=== PATIENT | male | born 1970 | race Caucasian/White ===

== ENCOUNTER 2023-12-01 13:00 | Outpatient (RCR) | payer OTHER, SELFPAY ==
[2023-09-15 12:51] VITALS: BP 150/90; PULSE 110; O2SAT 96
== END 2024-05-09 07:51 | disposition home or self-care (01) ==
LOC: HO.PTWFD 13:00
PROVIDERS: Visit Provider Orthopaedic Surgery
DX: M25.552 Pain in left hip (principal)
CPT/HCPCS: 97110; 97116; 97140; 97162; 97530; 97535

== ENCOUNTER 2024-01-26 14:55 | Outpatient (AMB) | payer OTHER, SELFPAY ==
--- NOTE | 2024-01-26 15:00 | A.OFFPC_ITS ---
Vital Signs 01/26/24 15:22 01/26/24 16:19 Height 5 ft 4.5 in Weight 157 lb 2 oz BMI 26.6 BP 124/76 Blood Pressure Location Lt brachial Position Sitting Pulse 116 H 92 Pulse Source Pulse Oximeter Monitor Pulse Oximetry (%) 96 Oxygen Delivery Method Room Air Intake Visit Reasons: est care Intake Note: Patient is a new patient here to establish care for Arthritis, Chronic pain. Transferring care from Dr Garret Baker ([facility]). Medical records have not been requested and have not received. Java Web Application Developer Required: No Radiologic Technician: Present Accompanied by: Sister Allergies aspirin Allergy (Intermediate, Verified 01/26/24 15:29) Swelling Tobacco use date assessed: 01/26/24 Dental Screening Dental Screen Date: 01/26/24 Did you have a dental visit in the last 12 months?: Yes Did you have a dental problem in the last 6 months where you did not have access to dental care?: No Was dental information given to patient?: Patient has dentist HPI est care HPI Details New Patient? ?? Prior PCP:?Dr Brito Last office visit/CPE:? 8 years Acute issue(s):? Est care ?? PMHx:? Arthritis b/L Hips, SurgHx:? L Total Hip, Ingunal Hernia 1995 FHx:? Mom: HTN, HLD, DM, CAD w/ Stent. Valvular disease. Dad: CAD. SocHx: Nonsmoker, EtOH None. 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 1. Little interest or pleasure in doing things: not at all 2. Feeling down, depressed, or hopeless: not at all 3. Trouble falling or staying asleep, or sleeping too much: not at all 4. Feeling tired or having little energy: not at all 5. Poor appetite or overeating: not at all 6. Feeling bad about yourself - or that you are a failure or have let yourself or your family down: not at all 7. Trouble concentrating on things, such as reading the newspaper or watching television: not at all 8. Moving or speaking so slowly that other people could have noticed. Or the opposite - being so fidgety or restless that you have been moving around a lot more than usual: not at all 9. Thoughts that you would be better off or of hurting yourself in some way: not at all Total score: 0 Depression Screening Interpretation: Negative Depression Screening Done: Yes 92747 - PHQ-9 Billing: Yes Source: Developed by Drs. Fer Brown, Carley Jimenez, Jef Angel and colleagues, with an educational dee from [employer]. Thrive Questionnaire Date Thrive assessed: 01/26/24 I am a: Patient What is your living situation today?: I have a steady place to live Within the past 12 months, did the food you bought not last and you didn't have the money to get more?: Never true Within the past 12 months, did you worry whether your food would run out before you got money to buy more?: Never true Do you have trouble paying for medicines?: No Do you have trouble getting transportation to medical appointments?: No Do you have trouble paying your heating and electricity bill?: No Do you have trouble taking care of your child, family member or friend?: No Do you have trouble with day-to-day activities such as bathing, preparing meals, shopping, managing finances, etc.?: No Are you currently unemployed and looking for a job?: No Are you interested in more education?: No Currently or been in a relationship where the following occur: No concerns reported THRIVE Score: 0 AUDIT C Alcohol Use Questionnaire (AUDIT-C) 1. How often do you have a drink containing alcohol?: Never Total Score: 0 FATUMA-7 AMB Questionnaire FATUMA-7 Date FATUMA - 7 assessed: 01/26/24 Feeling nervous, anxious, or on edge: 0 = Not at all Not being able to stop or control worryin = Not at all Worrying too much about different things: 0 = Not at all Trouble relaxin = Not at all Being so restless that it is hard to sit still: 0 = Not at all Becoming easily annoyed or irritable: 0 = Not at all Feeling afraid as if something awful might happen: 0 = Not at all Total FATUMA-7 score (0-4 normal; 5-9 mild; 10-14 moderate; 15-21 severe): 0 Source: Developed by Drs. Fer Brown, Carley Jimenez, Jfe Angel and colleagues, with an educational dee from [employer]. FATUMA-7 Assessment Billing FATUMA-7 Assessment Tool: FATUMA-7 Assessment 41799 Review of Systems Const Denies chills, Denies fatigue, Denies fever(s), Denies headache(s) and Denies weakness Eyes Denies change in vision ENT Denies dizziness, Denies headache(s), Denies hearing loss, Denies nasal congestion, Denies sinus pain, Denies sinus pressure and Denies sore throat Card Denies chest pain, Denies lightheadedness, Denies dyspnea and Denies other (palpitations) Resp Denies cough, Denies dyspnea and Denies wheezing GI Denies abdominal pain, Denies melena, Denies hematochezia, Denies change in bowel habits, Denies dyspepsia and Denies nausea Denies hematuria and Denies dysuria Musc Denies abnormal gait, Denies myalgias, Denies arthralgias, Denies numbness and Denies tingling Skin/Breast Denies rash, Denies unusual bruising and Denies wounds Neuro Denies abnormal gait, Denies dizziness, Denies headache(s), Denies memory loss, Denies numbness, Denies Sensory deficit (Neuro), Denies tingling and Denies weakness Psych Denies anxiety, Denies depression and Denies memory loss Endo Denies cold intolerance, Denies fatigue, Denies heat intolerance, Denies polydipsia and Denies polyuria Law/Lymph Denies easy bleeding and Denies easy bruising Aller/Immun Denies wheezing Physical exam (Primary Care) Vital Signs: Last Vital Signs Pulse 116 H 01/26/24 15:22 BP 124/76 01/26/24 15:22 Pulse Ox 96 01/26/24 15:22 Oxygen Delivery Method Room Air 01/26/24 15:22 BMI result Body Mass Index 26.6 Tobacco/Smoking Status: Tobacco use Status Tobacco use date assessed 01/26/24 01/26/24 15:03 Patient Tobacco Use Status Never used Tobacco 01/26/24 15:03 e-Cigarette/Vaping Use Never Used 01/26/24 15:03 PHQ-9: PHQ-9 Score PHQ-9: Total score 0 01/26/24 15:33 Depression Screening Interpretation: Negative Thrive Assessment: Date of Thrive Assessment Date Thrive assessed 01/26/24 01/26/24 15:03 Currently or been in a relationship where the following occur: No concerns reported Const General: no acute distress, well developed, alert and awake Nutritional Appearance: well nourished Orientation/consciousness: patient oriented x3 HENMT Head: Yes normocephalic and Yes atraumatic Ears: hearing grossly normal bilaterally and TM's normal bilaterally General nose exam: Normal external nose present and Normal nares present Mouth: Normal oral and palatal mucosa present and moist mucous membranes Teeth and gingiva: dentition normal Throat: Yes posterior oropharynx normal Eyes General: appearance normal, both eyes and all related structures Pupils: Equal, round and reactive pupils present and Pupil accommodation reflex normal EOM: EOMs intact bilaterally Neck Neck: Yes normal visual inspection, Yes no lymphadenopathy and Yes trachea midline Thyroid: Thyroid normal Carotids: no bruits Lymphatic: no lymphadenopathy noted Chest Chest palpation & inspection: normal inspection of the chest Resp Effort & Inspection: normal respiratory effort Auscultation: clear to auscultation bilaterally Cardio Rate: tachycardic Rhythm: regular rhythm Heart sounds: S1 normal heart sound present, S2 normal heart sound present, no gallops, no murmurs and no rubs Bruits: no abdominal aortic bruits and no carotid bruits GI Palpation (GI): No Abdominal aortic bruit present, Soft to palpation, nontender, No hepatosplenomegaly present and No Rebound tenderness present Auscultation: normal bowel sounds General: Yes no CVA tenderness Back/Spine/Pelvis Back: no CVA tenderness Cervical Spine: cervical ROM normal and No Cervical spine tenderness Thoracic/Lumbar Spine: thoraco-lumbar ROM normal, No pain with thoraco-lumbar ROM, No thoracic spinal tenderness and No lumbar spinal tenderness Skin Lesions: no lesions Rashes: no rashes Trauma: no lacerations or abrasions Wounds: no wounds Nails: normal Neuro General: patient oriented x3 Cranial nerves: Yes Equal, round and reactive pupils present Cognition (Neuro): normal cognition Gait exam (Neuro): Normal gait present Motor exam (neuro): 5/5 motor strength present throughout Sensory Exam: No Sensory deficit (Neuro) Deep tendon reflexes (DTR's): Right patellar reflex intensity grade: 2+ and Left patellar reflex intensity grade: 2+ Extrem General: Yes normal to inspection and No edema Psych Appearance: grossly normal Affect: normal affect Attitude: cooperative Thought process: Normal thought process present Assessment and Plan Assessment & Plan (1) Arthritis: Code(s): M19.90 - Unspecified osteoarthritis, unspecified site Plan: Arthritis?of?bilateral?hips?and?s/p?total?hip?replacement?on?left. Patient?walking?with?limp?favoring?right?leg/hip?and?has?appointment?for?follow- up?with?his?orthopedic?specialist?in?[place] May?be?ready?for?right?total?hip?soon Follow-up?with?ortho?as?recommended (2) Tachycardia: Code(s): R00.0 - Tachycardia, unspecified Plan: Mild?tachycardia.??Patient?is?asymptomatic EKG: ?Normal?sinus?rhythm,?heart?rate?92, normal?axis,?no?hypertrophy,?no?ST-T-wave?changes Check?labs?including?CBC?and?thyroid?hormone?level (3) Family history of coronary artery disease: Code(s): Z82.49 - Family history of ischemic heart disease and other diseases of the circulatory system Plan: Strong?family?history?of?coronary?artery?disease?and?as?above,?patient?has?mild? tachycardia EKG?is?okay Check?lipids (4) Adult general medical exam: Code(s): Z00.00 - Encounter for general adult medical examination without abnormal findings Plan: 53-year-old?male?presents?as?new?patient?for?complete?physical Exam?within?normal?limits?except?as?otherwise?noted?above Orders: Orders Complete Blood Count Auto Diff Today Z00.00 - Encounter for general adult medical examination without abnormal findings Comprehensive [place]. Panel Fast Today Z00.00 - Encounter for general adult medical examination without abnormal findings Lipid Panel Today Z00.00 - Encounter for general adult medical examination without abnormal findings Prostate Specific Antigen Scr Today Z12.5 - Encounter for screening for malignant neoplasm of prostate AMB EKG-In Office Today R00.0 - Tachycardia, unspecified Microalbumin, Random (w Creat) Today I10 - Essential (primary) hypertension TSH reflex Free T4 Today Z00.00 - Encounter for general adult medical examination without abnormal findings UA and rflx microscopic Today Z00.00 - Encounter for general adult medical examination without abnormal findings Coding Level of Care Code New Pt Level 3 (11174) Diagnoses Arthritis M19.90 Tachycardia R00.0 Family history of coronary artery disease Z82.49 Adult general medical exam Z00.00 Additional Codes FATUMA-7 Assessment Billing - FATUMA-7 Assessment Tool: FATUMA-7 Assessment 08158 ([id number])
[2024-01-26 15:22] VITALS: BP 124/76; PULSE 116; O2SAT 96; BMI 26.6
[2024-01-26 16:19] VITALS: PULSE 92
== END 2024-01-26 16:38 | disposition home or self-care (01) ==
PROVIDERS: PCP Family Medicine; Visit Provider Family Medicine
DX: M19.90 Unspecified osteoarthritis, unspecified site (principal); R00.0 Tachycardia, unspecified; Z82.49 Family history of ischemic heart disease and other diseases of the circulatory system
CPT/HCPCS: 99203

== ENCOUNTER 2024-02-03 10:02 | Outpatient (REF) | payer OTHER, SELFPAY ==
[2024-02-03 11:09] LABS: MANUAL DIFF FLAG NO
[2024-02-03 11:25] LABS: Basophils Percent Auto 0.4 % (0-2); Eosinophils Absolute Auto 0.2 X10*3/uL (0.0-0.4); Eosinophils Percent Auto 2.5 % (0-4); Hematocrit 40.7 % (42.0-52.0); Imm Gran Abs Auto 0.03 X10*3/uL (0.00-0.03); Imm Gran Pct Auto 0.3 % (0.0-0.4); Lymphocytes Absolute Auto 2.3 X10*3/uL (1.2-4.9); Lymphocytes Percent Auto 24.5 % (20-40); Mean Corpuscular HGB Conc 34.4 g/dl (31.0-36.0); Mean Corpuscular Hemoglobin 28.7 pg (27.0-33.0); Mean Corpuscular Volume 83.4 fL (80.0-98.0); Mean Platelet Volume 9.4 fL (9.4-12.4); Monocytes Absolute Auto 0.8 X10*3/uL (0.1-1.2); Monocytes Percent Auto 8.3 % (2-11); Neutrophils Absolute Auto 5.9 x10*3/uL (2.0-8.3); Platelet Count 366 X10*3/uL (160-400); Red Blood Count 4.88 X10*6/uL (4.60-5.80); Red Cell Distribution Width 13.8 % (11.0-16.0); White Blood Count 9.2 X10*3/uL (4.8-10.8)
[2024-02-03 11:42] LABS: Appearance Urine Clear; Color Urine Yellow; Glucose Urine UA Negative (Negative); Leukocyte Esterase Urine Negative (Negative); Nitrite Urine Negative (Negative); PH 6.5 (5.0-9.0); Urine Blood Negative (Negative); Urine Ketones Negative (Negative); Urine Protein Trace mg/dL (Neg-Trace)
[2024-02-03 12:09] LABS: Prostate Specific Antigen Scr 2.42 ng/mL (<0.05-4.0)
[2024-02-03 12:16] LABS: Creatinine Urine 150.23 mg/dL; Microalbum/Creatinine Ratio Ur 23.2 ug/mg cr (<30)
[2024-02-03 16:22] LABS: Alanine Aminotransferase 78 U/L (0-40); Albumin Level 4.6 g/dL (3.5-5.0); Alkaline Phosphatase 114 U/L (39-117); Anion Gap 14 (12-20); Aspartate Amino Transferase 49 U/L (5-37); Bilirubin Total 1.7 mg/dL (0.0-1.0); Blood Urea Nitrogen 14 mg/dL (9-16); Calcium 9.8 mg/dL (8.4-10.2); Carbon Dioxide 24 mmol/L (22-29); Chloride 104 mmol/L (96-108); Cholesterol 284 mg/dL (<200); Estimated Glomerular Filt Rate > 60; Glucose Fasting 94 mg/dL (60-99); HDL Cholesterol 39 mg/dL (>40); LDL Cholesterol Calculated 210 mg/dL (<100); Potassium 3.7 mmol/L (3.3-5.1); Sodium 138 mmol/L (135-145); Total Protein 7.9 g/dL (6.5-8.0); Triglycerides 175 mg/dL (<150)
[2024-02-03 16:34] LABS: TSH reflex Free T4 1.54 uIU/mL (0.32-4.0)
== END 2024-02-03 10:03 | disposition home or self-care (01) ==
LOC: HO.WFDLDS 10:02
PROVIDERS: Visit Provider Family Medicine
DX: Z00.00 Encounter for general adult medical examination without abnormal findings (principal); I10 Essential (primary) hypertension; Z12.5 Encounter for screening for malignant neoplasm of prostate
CPT/HCPCS: 36415; 80053; 80061; 81003; 82043; 82570; 84153; 84443; 85025

== ENCOUNTER 2024-12-15 13:47 | Outpatient (RCR) | payer OTHER, SELFPAY | END 2024-12-20 08:05 | disposition home or self-care (01) | LOC: HO.PTS 13:47 | PROVIDERS: Visit Provider Orthopaedic Surgery | DX: M25.551 Pain in right hip (principal) | CPT/HCPCS: 97110; 97116; 97161; 97535 ==

== ENCOUNTER 2025-02-09 14:35 | Outpatient (AMB) | payer OTHER, SELFPAY ==
--- NOTE | 2025-02-09 14:42 | MHC.PC.OV ---
Vital Signs 02/09/25 14:43 Height 5 ft 4.5 in Weight 162 lb 6 oz BMI 27.4 BP 160/90 H Blood Pressure Location Lt brachial Position Sitting Respiration 16 Pulse 88 Pulse Source Pulse Oximeter Temp 97.8 F Temp Source Oral Pulse Oximetry (%) 97 Oxygen Delivery Method Room Air Intake Visit Reasons: chest pain Accompanied by: Sister Allergies aspirin Allergy (Intermediate, Verified 02/09/25 14:48) Swelling Medication List - Last Reconciled 02/09/25 by Herman Neal MD No Known Home Meds Tobacco use date assessed: 02/09/25 Dental Screening Dental Screen Date: 02/09/25 Did you have a dental visit in the last 12 months?: No Did you have a dental problem in the last 6 months where you did not have access to dental care?: No Was dental information given to patient?: Patient has dentist HPI chest pain HPI Details 54 y/o male presents today with complaints of chest pain. Strong FHx of CAD. Last labs drawn 02/03/24. Reviewed labs with pt. Triglycerides 175. TC 284. LDL 210. HDL low at 39. PSA 2.42. Elevated liver enzymes - AST 49, ALT 78. Had first noticed chest discomfort while doing physical therapy. Had described discomfort as a pressure. BP today 160/90, 88p. 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 1. Little interest or pleasure in doing things: not at all 2. Feeling down, depressed, or hopeless: not at all 3. Trouble falling or staying asleep, or sleeping too much: not at all 4. Feeling tired or having little energy: not at all 5. Poor appetite or overeating: not at all 6. Feeling bad about yourself - or that you are a failure or have let yourself or your family down: not at all 7. Trouble concentrating on things, such as reading the newspaper or watching television: not at all 8. Moving or speaking so slowly that other people could have noticed. Or the opposite - being so fidgety or restless that you have been moving around a lot more than usual: not at all 9. Thoughts that you would be better off or of hurting yourself in some way: not at all Total score: 0 Depression Screening Interpretation: Negative Depression Screening Done: Yes 92999 - PHQ-9 Billing: Yes Source: Developed by Drs. Fer Brown, Carley Jimenez, Jef Angel and colleagues, with an educational dee from [employer] Thrive Questionnaire Date Thrive assessed: 02/09/25 I am a: Patient What is your living situation today?: I have a steady place to live Within the past 12 months, did the food you bought not last and you didn't have the money to get more?: Never true Within the past 12 months, did you worry whether your food would run out before you got money to buy more?: Never true Do you have trouble paying for medicines?: No Do you have trouble getting transportation to medical appointments?: No Do you have trouble paying your heating and electricity bill?: No Do you have trouble taking care of your child, family member or friend?: No Do you have trouble with day-to-day activities such as bathing, preparing meals, shopping, managing finances, etc.?: No Are you currently unemployed and looking for a job?: No Are you interested in more education?: No Please select the resources that you would like help with: None THRIVE Score: 0 AUDIT C Alcohol Use Questionnaire (AUDIT-C) 1. How often do you have a drink containing alcohol?: Never 3. How often do you have six or more drinks on one occasion?: Never Total Score: 0 FATUMA-7 AMB Questionnaire FATUMA-7 Date FATUMA - 7 assessed: 02/09/25 Feeling nervous, anxious, or on edge: 0 = Not at all Not being able to stop or control worryin = Not at all Worrying too much about different things: 0 = Not at all Trouble relaxin = Not at all Being so restless that it is hard to sit still: 0 = Not at all Becoming easily annoyed or irritable: 0 = Not at all Feeling afraid as if something awful might happen: 0 = Not at all Total FATUMA-7 score (0-4 normal; 5-9 mild; 10-14 moderate; 15-21 severe): 0 Source: Developed by Drs. Fer Brown, Carley Jimenez, Jef Angel and colleagues, with an educational dee from [employer] FATUMA-7 Assessment Billing FATUMA-7 Assessment Tool: FATUMA-7 Assessment 80188 Physical exam (Primary Care) Vital Signs: Last Vital Signs Temp 97.8 F 02/09/25 14:43 Pulse 88 02/09/25 14:43 Resp 16 02/09/25 14:43 BP 160/90 H 02/09/25 14:43 Pulse Ox 97 02/09/25 14:43 Oxygen Delivery Method Room Air 02/09/25 14:43 BMI result Body Mass Index 27.4 Tobacco/Smoking Status: Tobacco use Status Tobacco use date assessed 02/09/25 02/09/25 14:50 Patient Tobacco Use Status Never used Tobacco 02/09/25 14:50 e-Cigarette/Vaping Use Never Used 02/09/25 14:50 PHQ-9: PHQ-9 Score PHQ-9: Total score 0 02/09/25 15:29 Depression Screening Interpretation: Negative Thrive Assessment: Date of Thrive Assessment Date Thrive assessed 02/09/25 02/09/25 14:50 Coding Level of Care Code Est Pt Level 4 (05688) Diagnoses Hypertension I10 Hyperlipidemia E78.5 Family history of coronary artery disease Z82.49 Chest pain R07.9 Elevated liver enzymes R74.8 Additional Codes FATUMA-7 Assessment Billing - FATUMA-7 Assessment Tool: FATUMA-7 Assessment 31261 ([id number]) PHQ-9 - 98907 - PHQ-9 Billing: Yes ([id number]) Assessment & Plan Assessment & Plan (1) Hypertension: Code(s): I10 - Essential (primary) hypertension Category: Medical (2) Hyperlipidemia: Code(s): E78.5 - Hyperlipidemia, unspecified Category: Medical (3) Family history of coronary artery disease: Code(s): Z82.49 - Family history of ischemic heart disease and other diseases of the circulatory system Category: Medical (4) Chest pain: Code(s): R07.9 - Chest pain, unspecified Category: Medical (5) Elevated liver enzymes: Code(s): R74.8 - Abnormal levels of other serum enzymes Category: Medical Plan 54-year-old male presents with complaints of intermittent substernal exertional chest pain. Patient notes that triggers are exertion and stress. Pain goes away with rest Strong family history of coronary artery disease LDL cholesterol 210 and likely familial hypercholesterolemia Blood pressure is too high. EKG today shows normal sinus rhythm, normal axis, no hypertrophy, no ST-T-wave changes. Start losartan for hypertension Start atorvastatin for hyperlipidemia and we discussed that he may need increases in these medications. Stress test ordered Encouraged diet low in saturated fats and cholesterol and weight loss. Advised him to avoid exertion or stress that brings on his symptoms and rest if has symptoms. Go to ED if lasting > 5 min Patient will follow-up after stress test to review and recheck blood pressure and cholesterol. Liver enzymes were also elevated. Rechecking this Hydrate well Orders: Orders Comprehensive [place]. Panel Fast 02/09/25 R74.8 - Abnormal levels of other serum enzymes, Z00.00 - Encounter for general adult medical examination without abnormal findings Lipid Panel 02/09/25 E78.5 - Hyperlipidemia, unspecified, Z00.00 - Encounter for general adult medical examination without abnormal findings CA stress test 02/09/25 I10 - Essential (primary) hypertension, R07.9 - Chest pain, unspecified, Z82.49 - Family history of ischemic heart disease and other diseases of the circulatory system Medications: New losartan 50 mg PO DAILY 90 tabs 3RF 90 days atorvastatin (Lipitor) 40 mg PO BEDTIME 90 tabs 3RF 90 days
[2025-02-09 14:43] VITALS: BP 160/90; PULSE 88; RESP 16; TEMP 36.6; O2SAT 97; BMI 27.4
--- OUTSIDE RECORDS SUMMARY | 2025-02-09 15:14 | XMS_ITS | Clinical Summary ---
Author Organization [facility] Address [address] [place] [address] Phone Care Team Providers Care Camp Counselor Name Role Phone Herman Neal MD Primary Care Provider Allergies Active Allergy Reactions Criticality Noted Date Comments Aspirin Anaphylaxis High 08/04/2024 Medications oxyCODONE 5 MG immediate release tablet Take 5 mg by mouth every 4 (four) hours as needed for pain (specific location in comments) (hip). Active docusate sodium (COLACE) 100 MG capsule Take 100 mg by mouth 2 (two) times a day as needed for mild constipation or moderate constipation. Active acetaminophen (TYLENOL) 500 MG tablet Take 1,000 mg by mouth every 8 (eight) hours as needed for fever or pain (specific location in comments). Active apixaban (ELIQUIS) 2.5 mg Take 2.5 mg by mouth 2 (two) times a day. Active Social History Tobacco Use Types Packs/Day Years Used Date Smoking Tobacco: Never Assessed Home Health Assessment: Transportation Answer Date Recorded Lack of Transportation (Medical) No 09/22/2024 Lack of Transportation (Non-Medical) No 09/22/2024 Patient Unable or Declines to Respond No 09/22/2024 Education Answer Date Recorded Are you interested in more education? Not on courtney e 07/23/2024 Are you concerned about learning? Not on file 07/23/2024 No 07/23/2024 No 07/23/2024 Digital Access Answer Date Recorded No 07/23/2024 No 07/23/2024 Reliable internet access at home? Not on file 07/23/2024 Device with a working camera? Not on file Sex and Gender Information Value Date Recorded Sex Assigned at Not on file Legal Sex Male 9:06 AM EST Gender Identity Not on file Sexual Orientation Not on file Last Filed Vital Signs Vital Sign Reading Time Taken Comments Blood Pressure 132/72 09/22/2024 8:02 AM EDT Pulse 82 09/22/2024 8:02 AM EDT Temperature 36.6 C (97.8 F) 09/22/2024 8:02 AM EDT Respiratory Rate 18 09/22/2024 8:02 AM EDT Oxygen Saturation 99% 09/22/2024 8:02 AM EDT Inhaled Oxygen Concentration - - Weight - - Height - - Body Mass Index - - Plan of Treatment Not on file Medical Devices Not on file [facility] [place] [facility] [place] [facility] POS EPO [facility] POS EPO [facility] POS EPO [facility] POS EPO Care Teams Camp Counselor Relationship Specialty Start Date End Date Herman Neal MD [address] [place] [address] PCP - General Family Medicine 07/25/24 Additional Source Comments The information contained in this document represents components of the legal health record. It is not the complete legal health record.[facility]
== END 2025-02-09 15:23 | disposition home or self-care (01) ==
LOC: HO.HMCFM 14:36
PROVIDERS: PCP Family Medicine; Visit Provider Family Medicine
DX: I10 Essential (primary) hypertension (principal); E78.5 Hyperlipidemia, unspecified; Z82.49 Family history of ischemic heart disease and other diseases of the circulatory system; R07.9 Chest pain, unspecified; R74.8 Abnormal levels of other serum enzymes

== ENCOUNTER → 2025-02-09 14:35 | Outpatient (BNVA) | payer OTHER, SELFPAY | PROVIDERS: PCP Family Medicine; Visit Provider Family Medicine | DX: I10 Essential (primary) hypertension (principal); R07.9 Chest pain, unspecified; E78.5 Hyperlipidemia, unspecified; R74.8 Abnormal levels of other serum enzymes; Z82.49 Family history of ischemic heart disease and other diseases of the circulatory system | CPT/HCPCS: 96127 ==

== ENCOUNTER 2025-03-08 08:33 | Outpatient (REF) | payer OTHER, SELFPAY ==
--- OUTSIDE RECORDS SUMMARY | 2025-03-08 09:52 | XMS_ITS | Clinical Summary ---
Author Organization [facility] Address [address] [place] [address] Phone Care Team Providers Care Resaw Carriage Operator Name Role Phone Herman Neal MD Primary [...] file Medical Devices Not on file Insurance [place] [facility] [place] [facility] E[facility] POS EPO [facility] POS EPO [facility] POS EPO Care Teams Resaw Carriage Operator Relationship Specialty Start Date End Date Herman Neal MD [address] [place] [address] PCP - General Family Medicine 07/25/24 Additional Source Comments The information contained in this document represents components of the legal health record. It is not the complete legal health record.[facility]
[2025-03-08 13:02] LABS: Alanine Aminotransferase 40 U/L (0-40); Albumin Level 4.7 g/dL (3.5-5.0); Alkaline Phosphatase 141 U/L (39-117); Anion Gap 12 (12-20); Aspartate Amino Transferase 39 U/L (5-37); Blood Urea Nitrogen 18 mg/dL (9-16); Calcium 9.3 mg/dL (8.4-10.2); Carbon Dioxide 29 mmol/L (22-29); Chloride 105 mmol/L (96-108); Cholesterol 227 mg/dL (<200); Estimated Glomerular Filt Rate > 60; HDL Cholesterol 35 mg/dL (>40); Potassium 4.0 mmol/L (3.3-5.1); Sodium 142 mmol/L (135-145); Total Protein 7.8 g/dL (6.5-8.0); Triglycerides 127 mg/dL (<150)
== END 2025-03-08 08:34 | disposition home or self-care (01) ==
LOC: HO.WFDLDS 08:33
PROVIDERS: Visit Provider Family Medicine
DX: Z00.00 Encounter for general adult medical examination without abnormal findings (principal); R74.8 Abnormal levels of other serum enzymes; E78.5 Hyperlipidemia, unspecified
CPT/HCPCS: 36415; 80053; 80061

== ENCOUNTER → 2025-03-10 07:59 | Outpatient (REF) | payer OTHER, SELFPAY ==
--- NOTE | 2025-03-10 08:01 | CA_ITS ---
Acquisition Time: 2025-03-10 07:58:58 Total Exercise Time: 00:03:09 Test Indications: CP Medications: SEE H&P Protocol: LAURA Max HR: 137 BPM 83% of Pred: 165 BPM Max BP: 153/58 mmHG Max Work Load: 4.7 METS Exercise stress test with exercise 3 mins 9 secs of Laura Protocol, achieving 83% MPHR, stopped due to reports of 8/10 mid upper chest discomfort and SOB, with significant ST changes, without any arrythmias. With ST depression (3mm) inferiorly and in leads V3- V6, with ST evelation ( 2 mm) in aVR and V1 meeting criteria of ischemia. In recovery, chest disocmfort resolved and EKG gradually improved to baseline. Test reviewed with Dr John. Plan : Will get a STAT echo and plan for OV with Dr. John this afternoon to discuss cardiac catheriazation. PCP made aware and requested for STAT cardiology referral. Referred By: Herman Neal Electronically Signed By: Miles Sr
--- OUTSIDE RECORDS SUMMARY | 2025-03-10 08:01 | XMS_ITS | Clinical Summary ---
Author Organization [facility] Address [address] [place] [address] Phone Care Team Providers Care Vaccine Specialist Name Role Phone Herman Neal MD Primary [...] file Medical Devices Not on file Insurance [place] [employer] [place] [employer] EPO [facility] POS [facility]PO [facility] POS [facility]PO [facility] POS EPO [facility] POS EPO Care Teams Vaccine Specialist Relationship Specialty Start Date End Date Herman Neal MD [address] [place] [address] PCP - General Family Medicine 07/25/24 Additional Source Comments The information contained in this document represents components of the legal health record. It is not the complete legal health record.[facility]
--- NOTE | 2025-03-10 10:02 | CA_ITS ---
Transthoracic Echocardiogram Patient (Last, First, Middle): Adeel Brady, Gender: Male Date of : 1970 Age: 54 Procedure Date: 03/10/2025 Procedure Type: Transthoracic Echocardiogram Location: OP Height: 167.64 cm Weight: 72.58 kg BSA: 1.82 m2 Heart Rate: bpm BP: 124 / 80 mmHg Salmon Troll Fisher: LÓPEZ Referring MD: Miles Sr PLASTIC FINISHER Bead Maker: Robbi John MD Symptoms: R07.9 - Chest pain, unspecified Study Quality: Adequate ECG Rhythm: Sinus Conclusions: - 1. Normal LV ejection fraction of 60-65% with grade 1 diastolic dysfunction 2. Normal cardiac valvular Dopplers 3. Normal RV systolic pressure 4. No gross pericardial effusion Findings Left Ventricle Normal left ventricular size, thickness, and systolic function. The visually estimated ejection fraction is between 60-65%. Spectral Doppler is indicative of an impaired relaxation filling pattern. E/E prime ratio is <8, consistent with normal filling pressures. Evidence suggests grade I (mild) diastolic dysfunction. Right Ventricle Normal right ventricular cavity size and systolic function. Atria Both atria are normal in size. There is no evidence of interatrial shunt. Aortic Valve Normal aortic valve structure and function. There is no aortic valve stenosis. There is no aortic valve regurgitation. Mitral Valve Normal mitral valve structure and function. There is trace mitral valve regurgitation. There is no mitral valve stenosis. Pulmonic Valve The pulmonic valve is likely normal. Tricuspid Valve Normal tricuspid valve structure. There is trace tricuspid valve regurgitation. The right ventricular systolic pressure is normal. The right ventricular systolic pressure is 23 mmHg. Normal right atrial pressure. There is no evidence of pulmonary hypertension. Great Vessels All visible segments of the aorta are normal in size. The pulmonary artery was not well visualized. There is no dilatation of the ascending aorta measuring 2.50 cm. Venous The inferior vena cava is normal in size and collapses greater than 50% with inspiration. Pericardium/Pleural There is no evidence of pericardial effusion. Prior Study Comparison No prior study available for comparison. Measurements 2D Linear Measurements IVSd: 1.01 0.6-0.9/0.6-1.0 cm LVIDd: 4.14 3.9-5.3/4.2-5.9 cm LVIDd Index: 2.27 2.4-3.2/2.2-3.1 cm/m2 LVIDs: 2.54 2.0-3.6 cm LVPWd: 1.05 0.7-1.1 cm Ao Root: 2.90 2.1-3.5 cm LV Mass: 174.06 67-162/88-224 g LV Mass Index: 95.64 43-95/49-115 g/m2 LVOT Diam: 2.30 3.0+(-)1.3 cm 2D Systolic Function EF 4C: 57.20 >55% EF 2C: 61.40 >55% EF BiP: 60.60 >55% Mitral Valve MV VTI: 0.23 MV Pk Jr: 0.92 MV Mn Jr: 0.60 MV Pk Grad: 3.00 MV Mn Grad: 2.00 MV Pk E: 0.66 MV PK A: 0.85 MV Decel Time: 132.00 E/A: 0.80 E'Lateral: 9.36 E'Medial: 6.31 E/E' Med: 10.40 E/E' Lat: 7.00 PHT: 39.00 MVA PHT: 5.64 MVA Continuity: 2.90 Decel Bent: 4.96 Aortic Valve AoV Pk Jr: 1.40 AoV Mn Jr: 0.94 AoV VTI: 0.28 AoV Pk Grad: 8.00 Aov Mn Grad: 4.00 SUSU Cont.VTI: 2.37 LVOT LVOT Pk Jr: 0.91 LVOT Mn Jr: 0.60 LVOT VTI: 0.16 LVOT Pk Grad: 3.00 LVOT Mn Grad: 2.00 LVOT Diam: 2.30 LVOT Area: 4.15 Diastolic Function MV Pk E: 0.66 MV Pk A: 0.85 E/A: 0.80 E'Medial: 6.31 E/E' Med: 10.40 E' Laterial: 9.36 E/E' Lat: 7.00 Right Ventricle TAPSE (mm): 26.00 Tricuspid Valve TR Pk Jr: 2.24 TR Pk Grad: 20.00 RA Press: 3.00 RVSP: 23.00 Great Vessels Aorta Ao Root-2D: 2.90 2.0-3.7 cm Ao Asc: 2.50 2.1-3.4 cm Pulmonary Valve PV Pk Jr: 1.17 Peak PV Grad: 5.00 Updated in Other Vendor System with Status of Final Robbi John MD electronically signed on 03/10/2025 3:46:01 PM with status of Final
[2025-03-10 13:03] LABS: Hematocrit 41.0 % (42.0-52.0); Hemoglobin 14.1 g/dl (14.0-18.0); Mean Corpuscular HGB Conc 34.4 g/dl (31.0-36.0); Mean Corpuscular Hemoglobin 29.2 pg (27.0-33.0); Mean Corpuscular Volume 84.9 fL (80.0-98.0); NRBC Abs Auto 0.000 X10*3/uL (0.0-0.012); NRBC Pct Auto 0.0 /100WBC (0.0-0.2); Platelet Count 386 X10*3/uL (160-400); Red Blood Count 4.83 X10*6/uL (4.60-5.80); White Blood Count 10.4 X10*3/uL (4.8-10.8)
[2025-03-10 13:17] LABS: INTERNATIONAL NORM RATIO 1.0 (0.9-1.1); Prothrombin Time 12.0 SEC (10.9-12.4)
[2025-03-10 13:40] LABS: Anion Gap 13 (12-20); Blood Urea Nitrogen 15 mg/dL (9-16); Calcium 9.9 mg/dL (8.4-10.2); Carbon Dioxide 28 mmol/L (22-29); Chloride 104 mmol/L (96-108); Estimated Glomerular Filt Rate > 60; Potassium 4.4 mmol/L (3.3-5.1); Sodium 141 mmol/L (135-145)
== END ==
LOC: HO.CARD 07:59
PROVIDERS: Absent Provider Internal Medicine Cardiovascular Disease; PCP Family Medicine; Visit Provider Family Medicine
DX: I10 Essential (primary) hypertension (principal); I20.0 Unstable angina; R07.9 Chest pain, unspecified; R94.39 Abnormal result of other cardiovascular function study; Z82.49 Family history of ischemic heart disease and other diseases of the circulatory system
CPT/HCPCS: 36415; 80048; 85027; 85610; 93005; 93017; 93306

== ENCOUNTER 2025-03-10 10:53 | Outpatient (AMB) | payer OTHER, SELFPAY ==
[2025-03-10 11:08] VITALS: BP 136/84; PULSE 73; BMI 26.1
--- NOTE | 2025-03-10 11:08 | MHC.OFFVIS ---
Vital Signs 03/10/25 11:08 Height 5 ft 4.5 in Weight 154 lb 5.177 oz BMI 26.1 BP 136/84 Blood Pressure Location Lt brachial Position Sitting Pulse 73 Intake Visit Reasons: New patient abnormal stress test Intake Note: New patient abnormal stress test c/o chest pain at times Manager Real Estate Required: No Personal Computer Network Engineer: Personal Computer Network Engineer Present Accompanied by: Sister Allergies aspirin Allergy (Intermediate, Verified 02/09/25 14:48) Swelling Medication List - Last Reconciled 03/10/25 by Robbi John MD atorvastatin (Lipitor) 40 mg PO BEDTIME 90 days losartan 50 mg PO DAILY 90 days HPI Comments Details: Thank you for referring Adeel in his urgent cardiology consultation in his outpatient for recent onset symptoms suggestive of angina and significantly abnormal exercise treadmill stress test. Patient is a 54-year-old male with prior history of hyperlipidemia, bilateral hip surgery 1 done last year on the left and 1 done this year on the right. Prior to that he did not have any significant symptoms although he said he was very limited because of his bilateral hip pain. Patient says since physical therapy now he has started to exercise and he says whenever he exerts more than a certain level he gets retrosternal chest pressure. He then has to stop in his symptoms dissipate within 5 minutes. Symptoms has been very consistent. He has not had any symptoms at rest. The symptoms got him concerned and he therefore came to your office for further evaluation. At that time given his prior history of hyperlipidemia and strong family history of premature coronary artery disease in his dad he will suggest a treadmill stress test which was done earlier today. His stress test was very abnormal with EKG changes starting in the 1st stage of Pablito protocol with symptoms of chest discomfort starting right away in the 2nd stage of Pablito protocol leading role limiting angina that had to stop the treadmill stress test. He had [address] depressions in some leads. Symptoms then subsided and EKGs back to normal after resting. Patient came for urgent office visit after discussion with your office today to further discuss management plan. He said he has not started taking his statins as he at as he wanted to see with lifestyle and diet modification if his LDL improves. His LDL is improved from although still elevated. He is currently taking losartan for blood pressure. 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[employer] Cognitive needs: No Hearing needs: No Vision needs: No Review of Systems Const Denies chills, Denies daytime sleepiness, Denies fatigue, Denies fever(s), Denies frequent falls, Denies poor appetite, Denies snoring, Denies stops breathing during sleep, Denies weakness, Denies weight gain and Denies weight loss Eyes Denies loss of vision ENT Denies dizziness and Denies hearing loss Card Reports chest pain, Denies claudication, Denies leg edema, Denies lightheadedness, Denies palpitations, Denies dyspnea, Denies dyspnea on exertion and Denies orthopnea Resp Denies cough, Denies excessive phlegm production, Denies dyspnea, Denies dyspnea on exertion, Denies snoring and Denies wheezing GI Denies abdominal pain, Denies hematochezia, Denies change in bowel habits, Denies nausea and Denies vomiting Denies dysuria and Denies urinary frequency Musc Denies arthralgias, Denies muscle weakness and Denies numbness Skin/Breast Denies nail changes and Denies rash Neuro Denies Abnormal speech present, Denies dizziness, Denies frequent falls, Denies loss of vision, Denies memory loss, Denies numbness and Denies weakness Psych Denies depression and Denies memory loss Endo Denies fatigue and Denies palpitations Law/Lymph Reports easy bruising and Reports other (anemia) Aller/Immun Denies wheezing Physical Exam Vital Signs: Last Vital Signs Pulse 73 03/10/25 11:08 BP 136/84 03/10/25 11:08 BMI result Body Mass Index 26.1 Const General: cooperative, comfortable, no acute distress, well developed, alert, awake and Physically active Nutritional Appearance: average body habitus and well nourished Orientation/consciousness: patient oriented x3 Limitations: no limitations HEENT Head: Yes normocephalic and Yes atraumatic Neck Neck: Yes trachea midline, Yes supple and Yes no JVD Resp Effort & Inspection: normal respiratory effort Auscultation: clear to auscultation bilaterally Cardio Jugular venous distension: no JVD Palpation: normal PMI Rate: regular rate Rhythm: regular rhythm Heart sounds: S1 normal heart sound present, S2 normal heart sound present, no click, no gallops, no murmurs and no rubs Bruits: no carotid bruits GI Auscultation: normal bowel sounds Skin General skin exam: no rashes or lesions noted Neuro General: patient oriented x3 and no focal motor deficits Speech: No Abnormal speech present Extrem General: Yes no clubbing, cyanosis or edema Psych Appearance: grossly normal Office Procedures EKG Details: EKGs shows normal sinus rhythm with sinus arrhythmia with minimal voltage criteria for LVH otherwise no significant ST T wave changes [id number], Complete Assessment & Plan Assessment & Plan (1) 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 He had no symptoms of angina prior to that. He has significant risk factors with marked hyperlipidemia as strong family history for premature coronary artery disease. He had a markedly abnormal exercise treadmill stress test with onset of EKGs changes in the 1st stage of Pablito protocol with limiting angina very early 2nd stage of Pablito protocol. His overall Mayer treadmill score is -20, highly suggestive of underlying significant coronary artery disease. I discussed with him the findings as well as almost 100% satiety of having underlying obstructive coronary artery disease. His symptoms only with exertion. I have therefore advised him to stay low and not exercise and also do not return back to work. I am prescribing metoprolol to decrease myocardial oxygen demand. He is advised to seek emergency care if he has any symptoms at rest. I have also advised him to start Lipitor therapy as soon as possible. I discussed with him that he requires cardiac catheterization which was scheduled in the next few days urgently. I discussed with him about the procedure of cardiac catheterization details including risks, benefits, alternatives. He is agreeable to pursue it. I will review his echocardiogram later today. Possible outcomes of cardiac catheterization were discussed with him including requirement for PCI and/or surgery. However if he requires PCI this will require careful planning as he has aspirin allergy with swelling in his face and may require urgent desensitization after diagnose take angiogram. This was discussed with him also and he understands. Will follow up with him in the office after cardiac catheterization. Greater than 45 minutes were spent in explaining and arranging for his urgent cardiac catheterization and management plan Orders: Orders Prothrombin Time INR Today I20.0 - Unstable angina Cardiac Cath LT w PCI 3 Days I20.0 - Unstable angina Basic Metabolic Panel Today I20.0 - Unstable angina Complete Blood Count no Diff Today I20.0 - Unstable angina Coding Level of Care Code New Pt Level 5 (77909) Complex EM visit Add On G2211 Diagnoses Crescendo angina I20.0 CPT Codes EKG - CPT: 44152-[id number], Complete ([id number])
== END 2025-03-10 12:24 | disposition home or self-care (01) ==
LOC: HO.HCS 10:53
PROVIDERS: PCP Family Medicine; Visit Provider Internal Medicine Cardiovascular Disease
DX: I20.0 Unstable angina (principal); I51.89 Other ill-defined heart diseases; R07.9 Chest pain, unspecified; R06.02 Shortness of breath
CPT/HCPCS: 93010; 93016; 93018; 93306; 99205

== ENCOUNTER 2025-03-17 13:33 | Outpatient (AMB) | payer OTHER, SELFPAY ==
--- OUTSIDE RECORDS SUMMARY | 2025-03-17 13:47 | XMS_ITS | Clinical Summary ---
Author Organization [facility] Address [address] [place] [address] Phone Care Team Providers Care Electrical Technician Name Role Phone Herman Neal MD Primary [...] file Medical Devices Not on file [facility] [facility] [place] [facility] E[facility] POS EPO [facility] POS EPO [facility] POS EPO [facility] POS EPO Care Teams Electrical Technician Relationship Specialty Start Date End Date Herman Neal MD [address] [place] [address] PCP - General Family Medicine 07/25/24 Additional Source Comments The information contained in this document represents components of the legal health record. It is not the complete legal health record.[facility]
--- NOTE | 2025-03-17 13:50 | MHC.PC.OV ---
Vital Signs 03/17/25 13:51 Height 5 ft 4.5 in Weight 158 lb 8 oz BMI 26.8 BP 136/98 H Blood Pressure Location Rt brachial Position Sitting Pulse 92 Pulse Source Pulse Oximeter Pulse Oximetry (%) 98 Oxygen Delivery Method Room Air Intake Visit Reasons: f/u stress test Accompanied by: Sister Allergies aspirin Allergy (Intermediate, Verified 03/17/25 13:52) Swelling Medication List - Last Reconciled 03/17/25 by Herman Neal MD atorvastatin (Lipitor) 40 mg PO BEDTIME 90 days losartan 50 mg PO DAILY 90 days Tobacco use date assessed: 03/17/25 Dental Screening Dental Screen Date: 03/17/25 Did you have a dental visit in the last 12 months?: No Did you have a dental problem in the last 6 months where you did not have access to dental care?: No Was dental information given to patient?: Patient has dentist HPI f/u stress test HPI Details 54 y/o male presents to f/u chest pain. FHx premature CAD. Pt had recent onsent angina after being active with his work. Symptoms only with exertion. . Had seen Cardiology 03/10/25. He had a markedly abnormal exercise treadmill stress test Prescribed him metoprolol to decrease myocardial oxygen demand. Has a cardiac cath scheduled next Thursday Blood pressure today 136/98, 92p. HPI Comments History of Present Illness Details Documentation assistance for Herman Neal MD, was provided by Jame Biggs, Job Honer on 03/17/2025 at 2:06 PM EST. I, Dr. Neal, have read, observed, and verified documentation. 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 1. Little interest or pleasure in doing things: not at all 2. Feeling down, depressed, or hopeless: not at all 3. Trouble falling or staying asleep, or sleeping too much: not at all 4. Feeling tired or having little energy: not at all 5. Poor appetite or overeating: not at all 6. Feeling bad about yourself - or that you are a failure or have let yourself or your family down: not at all 7. Trouble concentrating on things, such as reading the newspaper or watching television: not at all 8. Moving or speaking so slowly that other people could have noticed. Or the opposite - being so fidgety or restless that you have been moving around a lot more than usual: not at all 9. Thoughts that you would be better off or of hurting yourself in some way: not at all Total score: 0 Depression Screening Interpretation: Negative Depression Screening Done: Yes Source: Developed by Drs. Fer Brown, Carley Jimenez, Jef Angel and colleagues, with an educational dee from [employer]. Thrive Questionnaire Date Thrive assessed: 02/09/25 I am a: Patient What is your living situation today?: I have a steady place to live Within the past 12 months, did the food you bought not last and you didn't have the money to get more?: Never true Within the past 12 months, did you worry whether your food would run out before you got money to buy more?: Never true Do you have trouble paying for medicines?: No Do you have trouble getting transportation to medical appointments?: No Do you have trouble paying your heating and electricity bill?: No Do you have trouble taking care of your child, family member or friend?: No Do you have trouble with day-to-day activities such as bathing, preparing meals, shopping, managing finances, etc.?: No Are you currently unemployed and looking for a job?: No Are you interested in more education?: No Please select the resources that you would like help with: None Currently or been in a relationship where the following occur: No concerns reported THRIVE Score: 0 AUDIT C Alcohol Use Questionnaire (AUDIT-C) 1. How often do you have a drink containing alcohol?: Never 3. How often do you have six or more drinks on one occasion?: Never Total Score: 0 FATUMA-7 AMB Questionnaire FATUMA-7 Date FATUMA - 7 assessed: 02/09/25 Feeling nervous, anxious, or on edge: 0 = Not at all Not being able to stop or control worryin = Not at all Worrying too much about different things: 0 = Not at all Trouble relaxin = Not at all Being so restless that it is hard to sit still: 0 = Not at all Becoming easily annoyed or irritable: 0 = Not at all Feeling afraid as if something awful might happen: 0 = Not at all Total FATUMA-7 score (0-4 normal; 5-9 mild; 10-14 moderate; 15-21 severe): 0 Source: Developed by Drs. Fer Brown, Carley Jimenez, Jef Angel and colleagues, with an educational dee from [employer]. Review of Systems Const Denies chills, Denies fatigue, Denies fever(s), Denies headache(s) and Denies weakness ENT Denies dizziness and Denies headache(s) Card Denies dyspnea Resp Denies cough, Denies dyspnea, Denies wheezing and Denies other (shortness of breath) Musc Denies numbness and Denies tingling Neuro Denies dizziness, Denies headache(s), Denies numbness, Denies tingling and Denies weakness Psych Denies anxiety and Denies depression Endo Denies fatigue Aller/Immun Denies wheezing Physical exam (Primary Care) Vital Signs: Last Vital Signs Pulse 92 03/17/25 13:51 BP 136/98 H 03/17/25 13:51 Pulse Ox 98 03/17/25 13:51 Oxygen Delivery Method Room Air 03/17/25 13:51 BMI result Body Mass Index 26.8 Tobacco/Smoking Status: Tobacco use Status Tobacco use date assessed 03/17/25 03/17/25 13:53 Patient Tobacco Use Status Never used Tobacco 03/17/25 13:53 e-Cigarette/Vaping Use Never Used 03/17/25 13:53 PHQ-9: PHQ-9 Score PHQ-9: Total score 0 03/17/25 14:06 Depression Screening Interpretation: Negative Thrive Assessment: Date of Thrive Assessment Date Thrive assessed 02/09/25 03/17/25 13:53 Currently or been in a relationship where the following occur: No concerns reported Const General: well developed; No acute distress Nutritional Appearance: well nourished Orientation/consciousness: patient oriented x3 HENMT Head: Yes normocephalic and Yes atraumatic Eyes General: appearance normal, both eyes and all related structures Pupils: Equal, round and reactive pupils present EOM: EOMs intact bilaterally Resp Effort & Inspection: normal respiratory effort Neuro General: patient oriented x3 and gait normal Cranial nerves: Yes Equal, round and reactive pupils present Psych Affect: normal affect Coding Level of Care Code Est Pt Level 4 (38216) Diagnoses Crescendo angina I20.0 Family history of coronary artery disease Z82.49 Hypertension I10 Hyperlipidemia E78.5 Assessment & Plan Assessment & Plan (1) Crescendo angina: Code(s): I20.0 - Unstable angina Category: Medical (2) Family history of coronary artery disease: Code(s): Z82.49 - Family history of ischemic heart disease and other diseases of the circulatory system Category: Medical (3) Hypertension: Code(s): I10 - Essential (primary) hypertension Category: Medical (4) Hyperlipidemia: Code(s): E78.5 - Hyperlipidemia, unspecified Category: Medical Plan Significantly positive stress test and patient is scheduled for cardiac catheterization on Thursday. He has follow-up with Cardiology in March Blood pressure is still high though improved on losartan. Will add metoprolol ER 25 mg daily Patient now has atorvastatin and only recently started it. He worked on lifestyle changes and right LDL cholesterol down significantly however it is still quite high. Expect it will be much improved on atorvastatin and we can follow-up on lipids in April. LDL goal less than 70; may be amended by Cardiology after catheterization Continue working on diet low in saturated fats and cholesterol Remain sedentary until after your cardiac catheterization Go to ED if any chest pain lasting longer than 5 minutes Medications: New metoprolol succinate ER 25 mg PO DAILY 90 tabs 3RF 90 days
[2025-03-17 13:51] VITALS: BP 136/98; PULSE 92; O2SAT 98; BMI 26.8
== END 2025-03-17 14:22 | disposition home or self-care (01) ==
LOC: HO.HMCFM 13:34
PROVIDERS: PCP Family Medicine; Visit Provider Family Medicine
DX: I20.0 Unstable angina (principal); Z82.49 Family history of ischemic heart disease and other diseases of the circulatory system; I10 Essential (primary) hypertension; E78.5 Hyperlipidemia, unspecified

== ENCOUNTER 2025-04-06 15:22 | Outpatient (AMB) | payer OTHER, SELFPAY ==
[2025-04-06 15:25] VITALS: BP 122/80; PULSE 90; BMI 25.3
--- NOTE | 2025-04-06 15:25 | A.OFFVIS_ITS ---
Vital Signs 04/06/25 15:25 Height 5 ft 4.5 in Weight 149 lb 14.629 oz BMI 25.3 BP 122/80 Blood Pressure Location Lt brachial Position Sitting Pulse 90 Intake Visit Reasons: follow-up cath Intake Note: Follow-up after cardiac cath feeling good [place] Required: No Pediatric Clinical Dietician: Pediatric Clinical Dietician Present Accompanied by: Family/Other Allergies aspirin Allergy (Intermediate, Verified 03/17/25 13:52) Swelling Medication List - Last Reconciled 04/06/25 by Robbi John MD aspirin (Adult Aspirin Regimen) 81 mg PO DAILY losartan 50 mg PO DAILY 90 days rosuvastatin (Crestor) 40 mg PO DAILY ticagrelor (Brilinta) 90 mg PO BID HPI Comments Details: Adeel comes for follow-up after undergoing percutaneous intervention of his left main stenosis into LAD at [facility] by Dr. Giles. He said he did well through the procedure. He was started on dual antiplatelet therapy after aspirin desensitization. His metoprolol was switch to losartan in his currently on high-intensity statin therapy. He said he has not exerted himself to significant degree but denies any exertional chest pain at this point time. He is wondering whether he can get back to work. Taking all his medications. Understands the procedure details [facility] Medical History CAD (coronary artery disease) Surgical History History of hernia surgery History of left hip replacement Social History Housing: House Alcohol intake: never Patient Tobacco Use Status: Never used Tobacco e-Cigarette/Vaping Use: Never Used Second Hand Smoke Exposure: No service: No Current occupational status: employed Current occupation: [employer] Cognitive needs: No Hearing needs: No Vision needs: No Review of Systems Const Denies chills, Denies fatigue, Denies fever(s), Denies frequent falls, Denies weakness, Denies weight gain and Denies weight loss ENT Denies dizziness Card Denies chest pain, Denies leg edema, Denies lightheadedness, Denies palpitations, Denies dyspnea, Denies dyspnea on exertion, Denies orthopnea and Denies other (loss of consciousness) Resp Denies cough, Denies dyspnea and Denies dyspnea on exertion GI Denies hematochezia and Denies change in stool character Musc Denies abnormal gait, Denies muscle weakness, Denies numbness, Denies radiating pain into limb and Denies tingling Neuro Denies Abnormal speech present, Denies abnormal gait, Denies dizziness, Denies frequent falls, Denies numbness, Denies tingling and Denies weakness Endo Denies fatigue and Denies palpitations Physical Exam Vital Signs: Last Vital Signs Pulse 90 04/06/25 15:25 BP 122/80 04/06/25 15:25 BMI result Body Mass Index 25.3 Const General: cooperative, comfortable, no acute distress, well developed, alert, awake and Physically active Nutritional Appearance: average body habitus and well nourished Orientation/consciousness: patient oriented x3 Limitations: no limitations HEENT Head: Yes normocephalic and Yes atraumatic Neck Neck: Yes trachea midline, Yes supple and Yes no JVD Resp Effort & Inspection: normal respiratory effort Auscultation: clear to auscultation bilaterally Cardio Jugular venous distension: no JVD Palpation: normal PMI Rate: regular rate Rhythm: regular rhythm Heart sounds: S1 normal heart sound present, S2 normal heart sound present, no click, no gallops, no murmurs and no rubs Bruits: no carotid bruits GI Auscultation: normal bowel sounds Skin General skin exam: no rashes or lesions noted Neuro General: patient oriented x3 and no focal motor deficits Speech: No Abnormal speech present Extrem General: Yes no clubbing, cyanosis or edema Psych Appearance: grossly normal Assessment & Plan Assessment & Plan (1) CAD (coronary artery disease): Code(s): I25.10 - Atherosclerotic heart disease of [place] coronary artery without angina pectoris Category: Medical Plan: CAD with complex stenting of left main into the LAD at [facility] for significant left main stenosis. He is currently not having any symptoms of angina. No apparent complications to his procedure. I strongly discussed with him about need for dual antiplatelet therapy uninterrupted for 1 year and probably longer given high risk location. This was discussed with him in details. Pathophysiology related to drug-eluting stents as well as coronary atherosclerosis was discussed in details. Agree with losartan for blood pressure control which is currently well optimized. Also agree with high- intensity statin therapy. Follow-up lipid panel in 2 months. Target goal LDL less than 55 mg/dL as per guidelines. I will refer him to phase 2 cardiac rehabilitation to gradually increase his activity level. He may return to work but avoid heavy exertion during work or lifting heavy objects at least for 4 weeks. Will follow up in the clinic in 3 months time, sooner p.r.n.. Thank you for allowing me to partake in his care Orders: Orders Lipid Panel 2 Months I25.10 - Atherosclerotic heart disease of [place] coronary artery without angina pectoris Coding Level of Care Code Est Pt Level 4 (29938) Complex EM visit Add On G2211 Diagnoses CAD (coronary artery disease) I25.10
== END 2025-04-06 15:46 | disposition home or self-care (01) ==
LOC: HO.HCS 15:23
PROVIDERS: PCP Family Medicine; Visit Provider Internal Medicine Cardiovascular Disease
DX: I25.10 Atherosclerotic heart disease of native coronary artery without angina pectoris (principal)
CPT/HCPCS: 99214

== ENCOUNTER 2025-05-18 07:34 | Outpatient (REF) | payer OTHER, SELFPAY ==
--- OUTSIDE RECORDS SUMMARY | 2025-05-18 07:38 | XMS_ITS | Encounter Summary ---
Author Organization [facility] Address [address] [place] [address] Phone Care Team Providers Care [employer] Name Role Phone Herman Neal MD Primary Care Provider Encounter Details Date Type Department Care Team (Late st Contact Info) Description 03/29/2025 Procedure Pass [facility] Cardiology Referral Images [address] [place] [address] Social History Tobacco Use Types Packs/Day Years Used Date Smoking Tobacco: Never Smokeless Tobacco: Never Alcohol Use Standard Drinks/Week Comments Not Currently 0 (1 standard drink = 0.6 oz pur e alcohol) Home Health Assessment: Transportation Answer Date Recorded Lack of Transportation (Medical) No 09/22/2024 Lack of Transportation (Non-Medical) No 09/22/2024 Patient Unable or Declines to Respond No 09/22/2024 Education Answer Date Recorded Are you interested in more education? Not on courtney e 07/23/2024 Are you concerned about learning? Not on file 07/23/2024 No 07/23/2024 No 07/23/2024 Food Answer Date Recorded Within the past 6 months we worried whether our food would run out before we got money to buy more. Never True 03/30/2025 Within the past 6 months the food we bought just didn't last and we didn't have enough money to get more. Never True Residential Stability Answer Date Recor ded What is your housing situation today? I have adelaida sing 03/30/2025 How many times have you move d in the past 12 months? Zero (I did not move) 03/30/2025 Paying for Meds Answer Date Recorded Do you have trouble paying for medicines? No 03/30/2025 Paying Utility Bills Answer Date Record ed Do you have trouble paying your heating or elect ricity bill? No 03/30/2025 Transportation Answer Date Recorded Has the lack of transportati on kept you from medical appointments or from getting medications? No 03/30/2025 Digital Access Answer Date Recorded No 03/30/2025 Yes 03/30/2025 Do you have reliable internet access at home? Ye s 03/30/2025 Do you have a device (e.g., phone, tablet, computer) with a working camera? Yes 03/30/2025 Intimate Partner Violence Answer Date R ecorded Are you denied basic needs s uch as food, clothing, or medical care? No 03/31/2025 In the past 12 months have y ou been in a relationship with a person who hurts, threatens, or tries to control you? No 03/31/2025 Are you denied basic needs s uch as food, clothing, or medical care? No 03/31/2025 In the past 12 months have y ou been in a relationship with a person who hurts, threatens, or tries to control you? No 03/31/2025 Sex and Gender Information Value Date Recorded Sex Assigned at Male 03/29/2025 8:47 PM EDT Legal Sex Male 9:06 AM EST Gender Identity Male 03/29/2025 8:47 PM EDT Sexual Orientation Straight 03/29/2025 8: 47 PM EDT documented as of this encounter Functional Status * Calculated C-SSRS Risk Score (Lifetime/Recent) Answer Date of Assessment Author No Risk Indicated 03/31/2025 5:00 AM EDT Krystal June RN * [place] Suicide Severity Rating Scale (Screener/Recent Self-Report) Question Answer Date of Assessment Author 1. Wish to be (Past 1 Month) No 03/31/2025 5:00 AM MILAT Krystal June RN 2. Non-Specific Active Suicidal Thoughts (Past 1 Month) No 03/31/2025 5:00 AM MILAT Krystal June RN 6. Suicidal Behavior (Lifetime) No 03/31/2025 5:00 AM MILAT Krystal June RN documented as of this encounter Plan of Treatment Not on file documented as of this encounter Visit Diagnoses Not on filedocumented in this encounter Care Teams [employer] Relationship Specialty Start Date End Date Herman Neal MD PCP - General Family Medicine 07/25/24 documented as of this encounter Additional Source Comments The information contained in this document represents components of the legal health record. It is not the complete legal health record.[facility]
--- OUTSIDE RECORDS SUMMARY | 2025-05-18 07:38 | XMS_ITS | Clinical Summary ---
Author Organization [facility] Address [address] [place] [address] Phone Care Team Providers Care Home Health Travel Ot Name Role Phone Herman Neal MD Primary Care Provider Allergies Active Allergy Reactions Criticality Noted Date Comments Aspirin Swelling High 07/20/2023 Developed facial and eye swelling as a child. 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 Please see Allergy note from 03/30. Tolerated desensitization on 03/30/2025. Medications oxyCODONE 5 MG immediate release tablet Take 5 mg by mouth every 4 (four) hours as needed for pain (specific location in comments) (hip). 5 Active docusate sodium (COLACE) 100 MG capsule Take 100 mg by mouth 2 (two) times a day as needed for mild constipation or moderate constipation. 5 Active acetaminophen (TYLENOL) 500 MG tablet Take 1,000 mg by mouth every 8 (eight) hours as needed for fever or pain (specific location in comments). Active rosuvastatin (CRESTOR) 40 MG tablet Take 1 tablet (40 mg total) by mouth daily. 90 tablet 5 Active aspirin 81 mg chewable tablet Take 1 tablet (81 mg total) by mouth daily. 90 tablet 5 Active ticagrelor (BRILINTA) 90 mg Tab Take 1 tablet (90 mg total) by mouth 2 (two) times a day. 180 tablet 5 Active Active Problems Problem Noted Date Diagnosed Date KRISTYN (acute kidney injury) 03/30/2025 Assessment & Plan (03/30/2025 11:12 AM EDT): Patient with BL Cr 1.04. On presentation, Cr 1.3. Denies poor PO intake or dehydration, thus pre-renal etiology unlikely. Without urinary retention per patient or nursing report. No evidence of bleeding or hemodynamic instability to invoke ATN. Catheterization over a week ago, though unlikely BERNADETTE. Query whether this represents degree of HTN or diabetic-induced nephropathy. Will exonerate etiologies further below advance of future contrast loads with pending PCI. Dx -HgbA1c -cystatin C -UA -Urine Na, Urine Cr, Urine Osm, urine K, urine urea -Urine albumin/Cr, urine protein/Cr -Renal/Bladder US Tx -Will repeat BMP this AM, and trial fluid bolus following urine studies above -Renally dose all meds -Avoid nephrotoxins -Continue Losartan 50mg for now, if evidence of proteinuria, uptitrate pending HTN trends and degree of proteinuria -consider SGLT-2-I for both CVD and CKD progression mitigation CAD (coronary artery disease) 03/29/2025 Assessment & Plan (03/30/2025 11:15 AM EDT): #Stable Angina #Severe LM disease 54 y/o M with multiple CVD RF's (HTN, HLD, strong family hx in both parents) presenting with subacute, stable angina, found to have 3mm ST depressions inferiorly and in leads V3-V6 and ST elevation in V1 on outpatient ETT (03/10), TTE with grade 1 diastolic dysfunction, and subsequent 80% stenosis of LMCA on outpatient coronary angiogram (03/20), now referred for LM PCI. On arrival, HDS, with flat troponins (6-->6), EKG non-ischemic, and chest pain free. Low concern for ACS in this context. Patient reported allergy to ASA as a child (swelling of face and eye), however does not appear c/w anaphylaxis (no clear hemodynamic compromise, 2+ systems were not involved, no hemodynamic compromise, nor epinephrine). Regardless, given importance of anti-platelet agent post PCI, will consult allergy for consideration of de-sensitization. Will continue to optimize CVD medically in advance of LM PCI. Fortunately, he remains angina-free, without evidence of decompensated HF or electrical instability. Cs -Allergy, Cardiology, Interventional very much appreciate their care Dx -Repeat Trops/EKG with any anginal sxs and trend -Follow up OSH TTE and cardiac cath -Lp(a), Apo(B), hsCRP -CYP 2c 19 -HgbA1c -TSH -low risk tele Tx -NPO for now -ASA desensitization as guided by allergy -Continue Plavix 75mg qD -Defer heparin and nitro drip for now given no c/f ACS and CP free -Given LDL 100, change Atorvastatin 40mg --> Rosuvastatin 40mg qD, target <55, can consider starting Zetia 10mg qD if not at goal for further risk mitigation -Continue losartan 50mg qD for now, though will monitor trajectory and uptitrate pending BP trends. Particularly given grade 1 diastolic dysfunction on TTE Hold 24 hours prior to cath -Admit to cardiology for LM PCI Unilateral primary osteoarthritis, right hip 09/2024 Encounters Date Type Department Care Team Description 03/31/2025 2:15 PM EDT - 03/31/2025 5:[address] [facility] Cardiac District Director [address], [address], [address] [place] [address] Kandi Tapia MD Percutaneous Coronary Intervention (PCI) LM 03/31/[address] [facility] Cardiac District Director [address], [address], [address] [place] [address] 03/30/[address] [facility] Allergy [place] [address], 4th Floor, [address] [place] [address] Agusto Seymour MD, PhD 03/29/2025 8:27 PM EDT - 04/01/2025 5:00 PM EDT Hospital Encounter [facility] [address] [place] [address] Esme Dumont MD, MPH Rome Moore MD Shokoohi, Hamid, MD, MPH Bernadette Corcoran MD, MPH Agusto Rene MD, MPP Figueroa Brian MD Discharge Disposition: Home or Self Care 03/29/2025 11:[address] [facility] Cardiology Referral Images [address] [place] [address] [facility] Admitting, Provider 03/29/2025 11:[address] [facility] Cardiology Referral Images [address] [place] [address] [facility] Admitting, Provider 03/29/[address] [facility] [address], 5th Floor, [address] [place] [address] Sona Ignacio, BALLING HEAD TENDER 03/29/[address] [facility] Cardiology Referral Images [address] [place] [address] 03/29/[address] [facility] [address], 5th [address], [address] [place] [address] Unknown, Unknown, Diagnosis unknown (Primary Dx) from Last 3 Months Immunizations Immunization Administration Dates Next Due INFLUENZA, SPLIT VIRUS, TRIVALENT PF 04/01/2025( Deferred: Patient Refused) Social History Tobacco Use Types Packs/Day Years Used Date Smoking Tobacco: Never Smokeless Tobacco: Never Tobacco Cessation:Counseling Given: Not Answered Alcohol Use Standard Drinks/Week Comments Not Currently [...] Orientation Straight 03/29/2025 8: 47 PM EDT Last Filed Vital Signs Vital Sign Reading Time Taken Comments Blood Pressure 138/83 04/01/2025 10:19 AM EDT Pulse 94 04/01/2025 5:00 AM EDT Temperature 36.6 C (97.8 F) 03/31/2025 6:15 PM EDT Respiratory Rate 18 04/01/2025 9:00 AM EDT Oxygen Saturation 97% 04/01/2025 8:52 AM EDT Inhaled Oxygen Concentration - - Weight 68.3 kg (150 lb 9.2 oz) 03/31/2025 6:37 A M EDT Height 167.6 cm (5' 6 ) 03/30/2025 6:07 PM EDT Body Mass Index 24.3 03/30/2025 6:07 PM EDT Plan of Treatment Health Maintenance Due Date Last Done Comments Adult Td,Tdap Booster 1969 DEPRESSION SCREENING 1981 HEPATITIS C SCREENING 1987 HIV ONE-TIME SCREENING (18-6 5 YEARS) 1987 COLOGUARD 2014 COLONOSCOPY 2014 COLORECTAL CANCER SCREENING 2014 FIT TEST 2014 FOBT 2014 SIGMOIDOSCOPY 2014 VIRTUAL COLONOSCOPY 2014 PNEUMOCOCCAL VACCINES (50+ y ears) (1 of 1 - PCV) 2019 ZOSTER VACCINES (1 of 2) 2019 INFLUENZA VACCINE (#1) 2025 COVID-19 VACCINE (1 - 2024-2 6 season) 2025 RSV VACCINE (1 - 1-dose 75+ series) 2044 SMOKING STATUS SCREENING (On ce After 26 Yrs) Completed 03/30/2025 HEPATITIS A VACCINES Aged Out No long er eligible based on patient's age to complete this topic HIB VACCINES Aged Out No longer eligi ble based on patient's age to complete this topic MENINGOCOCCAL VACCINES (ACWY) Aged Out No longer eligible based on patient's age to complete this topic MENINGOCOCCAL VACCINES (B) Aged Out N o longer eligible based on patient's age to complete this topic Medical Devices Implanted Type Area Body Art Technician Device Identifier Shelf Expiration Date Model / Serial / Lot Stent Xience Skypoint [id number] Rapid Exchange Everolimus Eluting Coronary - [id number] Implanted:Qty: 1 on 03/31/2025 by Hernandez Bess MD, MPH at [facility] Stent [employer] [id number] 3 / / Stent Xience Skypoint [id number] Rapid-Exchange Everolimus Eluting Coronary - [id number] Implanted:Qty: 1 on 03/31/2025 by Hernandez Bess MD, MPH at [facility] Stent N/A: Coronary [employer] 01/16/2028 [id number] 3 / / [id number] Stent Xience Skypoint [id number] Rapid Exchange Everolimus Eluting Coronary - [id number] Implanted:Qty: 1 on 03/31/2025 by Hernandez Bess MD, MPH at [facility] Stent N/A: Coronary [employer] 06/08/2027 [id number] 2 / / [id number] Procedures Procedure Name Priority Date/Time Associated Diagnosis Comments HC BLOOD TYPING SEROLOGIC ABO Routine 04/01/2025 5:45 AM EDT MAGNESIUM Routine 04/01/2025 5:45 AM EDT CBC Routine 04/01/2025 5:45 AM EDT BASIC METABOLIC PANEL (BMP) Routine 04/01/2025 5:45 AM EDT LFTS (HEPATIC PANEL) STAT 03/31/2025 6:54 PM EDT CBC STAT 03/31/2025 6:54 PM EDT LACTIC ACID (LACTATE) STAT 03/31/2025 6:54 PM EDT BASIC METABOLIC PANEL (BMP) STAT 03/31/2025 6:54 PM EDT PERIPHERAL VASCULAR Routine 03/31/2025 3 :27 PM EDT CAD (coronary artery disease) Unstable angina PERCUTANEOUS CORONARY INTERVENTION (PCI) LCX Routine 03/31/2025 3:27 PM EDT CAD (coronary artery disease) Unstable angina PERCUTANEOUS CORONARY INTERVENTION (PCI) LAD Routine 03/31/2025 3:27 PM EDT CAD (coronary artery disease) Unstable angina INTRAVASCULAR ULTRASOUND, CORONARY (IVUS) Routine 03/31/2025 3:27 PM EDT CAD (coronary artery disease) Unstable angina PERCUTANEOUS CORONARY INTERVENTION (PCI) LM Routine 03/31/2025 3:27 PM EDT CAD (coronary artery disease) Unstable angina POCT ACTIVATED CLOTTING TIME Routine 03/31/2025 3:04 PM EDT POCT ACTIVATED CLOTTING TIME Routine 03/31/2025 2:29 PM EDT POCT ACTIVATED CLOTTING TIME Routine 03/31/2025 2:00 PM EDT POCT ACTIVATED CLOTTING TIME Routine 03/31/2025 1:41 PM EDT PT-INR Routine 03/31/2025 6:20 AM EDT MAGNESIUM Routine 03/31/2025 6:20 AM EDT CBC Routine 03/31/2025 6:20 AM EDT BASIC METABOLIC PANEL (BMP) Routine 03/31/2025 6:20 AM EDT LIPOPROTEIN (A) Routine 03/31/2025 6:20 AM EDT MICROALBUMIN, URINE Routine 03/30/2025 1 1:47 AM EDT MICROALBUMIN/CREATININE , RANDOM URINE Routine 03/30/2025 11:47 AM EDT UREA NITROGEN, RANDOM URINE Routine 03/30/2025 11:47 AM EDT TOTAL PROTEIN CREATININE RATIO, RANDOM URINE Routine 03/30/2025 11:47 AM EDT OSMOLALITY (URINE, RANDOM) Routine 03/30/2025 11:47 AM EDT POTASSIUM, RANDOM URINE Routine 03/30/20 25 11:47 AM EDT SODIUM, RANDOM URINE Routine 03/30/2025 11:47 AM EDT URINALYSIS WITH REFLEX TO URINE CULTURE Routine 03/30/2025 11:47 AM EDT CYSTATIN C WITH ESTIMATED GLOMERULAR FILTRATION RATE (EGFR) Routine 03/30/2025 11:29 AM EDT C-REACTIVE PROTEIN (CRP), HIGH SENSITIVITY Routine 03/30/2025 11:29 AM EDT CYP 2C19 GENOTYPE Routine 03/30/2025 11: 29 AM EDT Apolipoprotein A1 & B Routine 03/30/2025 11:29 AM EDT TSH WITH REFLEX Routine 03/30/2025 11:29 AM EDT BASIC METABOLIC PANEL (BMP) Routine 03/30/2025 11:29 AM EDT HEMOGLOBIN A1C STAT 03/30/2025 6:45 AM EDT LIPID PANEL STAT 03/30/2025 6:45 AM EDT CBC AND DIFFERENTIAL STAT 03/29/2025 10:04 PM EDT TROPONIN STAT 03/29/2025 9:53 PM EDT ABO AND RH Routine 03/29/2025 9:23 PM EDT HC ANTIBODY SCREEN RBC EACH SERUM TECHNIQUE STAT 03/29/2025 9:23 PM EDT TROPONIN STAT 03/29/2025 9:15 PM EDT PTT STAT 03/29/2025 9:15 PM EDT PT-INR STAT 03/29/2025 9:15 PM EDT BASIC METABOLIC PANEL (BMP) STAT 03/29/2025 9:15 PM EDT CBC AND DIFFERENTIAL STAT 03/29/2025 9:15 PM EDT ECG 12-LEAD STAT 03/29/2025 8:12 PM EDT OUTSIDE ECHO Routine 03/29/2025 10:56 AM EDT Diagnosis unknown OUTSIDE CARDIAC CATHETERIZATION Routine 03/29/2025 10:55 AM EDT Diagnosis unknown from Last 3 Months Results * (ABNORMAL) CBC (04/01/2025 5:45 AM EDT) Only the most recent of3 resultswithin the time period is included. WBC 10.87 4.00 - 11.00 K/uL [facility] RBC 4.74 4.50 - 5.90 M/uL [facility] HGB 13.7 13.5 - 17.5 g/dL [facility] HCT 40.3(L) 41.0 - 53.0 % [facility] PLT 312 150 - 450 K/uL [facility] MCV 85.0 80.0 - 100.0 fL [facility] MCH 28.9 27.0 - 31.0 pg [facility] MCHC 34.0 32.0 - 36.0 g/dL [facility] RDW 12.5 11.5 - 14.5 % [facility] MPV 9.1 8.4 - 12.0 fL [facility] NRBC 0.00 0.00 /100 WBCs [facility] ABSOLUTE NRBC 0.00 0.00 K/uL [facility] Blood 04/01/2025 5:45 AM EDT 04/01/2025 6:16 AM EDT us Bernadette Corcoran MD, MPH LAB BLOOD BKR ORDERABLES Fi nal Result [address] [address] * Type and Screen (ABO,Rh,Antibody Screen) (04/01/2025 5:45 AM EDT) Only the most recent of2 resultswithin the time period is included. Expiration Date of Sample 04/04/2025 11:59 PM [facility] Antibody Screen Negative 04/01/2025 6:41 AM EDT [facility] Resulting Agency [facility] ABO A 04/01/2025 6:25 AM EDT [facility] Rh Positive 04/01/2025 6:25 AM EDT [facility] Blood 04/01/2025 5:45 AM EDT 04/01/2025 5:57 AM EDT us Figueroa Brian MD LAB BLOOD BANK TEST ORDERABLES Final Result Performing Organization Address City/[facility] Co de Phone Number [address] [address] * Magnesium (04/01/2025 5:45 AM EDT) Only the most recent of2 resultswithin the time period is included. MAGNESIUM 2.0 1.7 - 2.4 mg/dL [facility] Blood 04/01/2025 5:45 AM EDT 04/01/2025 6:16 AM EDT us Agusto Rene MD, MPP LAB BLOOD BKR ORDERA BLES Final Result Performing Organization Address [facility] de Phone Number [address] [address] * (ABNORMAL) Basic metabolic panel (04/01/2025 5:45 AM EDT) Only the most recent of5 resultswithin the time period is included. SODIUM 136 135 - 145 mmol/L [facility] POTASSIUM 4.1 3.4 - 5.0 mmol/L [facility] CHLORIDE 101 98 - 108 mmol/L [facility] CO2 21(L) 23 - 32 mmol/L [facility] BUN 17 8 - 25 mg/dL [facility] CREATININE 0.99 0.60 - 1.30 mg/dL [facility] GLUCOSE 87 70 - 110 mg/dL [facility] CALCIUM 9.4 8.5 - 10.5 mg/dL [facility] EGFR 90 >59 mL/min/1.7 3m2 [facility] Comment:Estimated glomerular filtration rate calculated using the CKD-EPI refit equation. ANION GAP 14 3 - 17 mmol/L [facility] Blood 04/01/2025 5:45 AM EDT 04/01/2025 6:16 AM EDT us Bernadette Corcoran MD, MPH LAB BLOOD BKR ORDERABLES Fi nal Result Performing Organization Address City/[facility] Co de Phone Number [address] [address] * (ABNORMAL) LFTs (hepatic panel) (03/31/2025 6:54 PM EDT) ALBUMIN 4.2 3.3 - 5.0 g/dL [facility] TOTAL BILIRUBIN 1.4(H) 0.0 - 1.0 mg/dL [facility] DIRECT BILIRUBIN 0.4(H) 0.0 - 0.3 mg/dL [facility] ALKALINE PHOSPHATASE 139(H) 45 - 115 U/L [facility] AST 32 10 - 40 U/L [facility] ALT 49 10 - 55 U/L [facility] TOTAL PROTEIN 7.3 6.0 - 8.3 g/dL [facility] GLOBULIN 3.1 1.9 - 4.1 g/dL [facility] Blood 03/31/2025 6:54 PM EDT 03/31/2025 7:19 PM EDT us Figueora Brian MD LAB BLOOD BKR ORDERABLES Final Result Performing Organization Address [facility] Co de Phone Number [address] [address] * Lactate (03/31/2025 6:54 PM EDT) LACTIC ACID (MMOL/L) 1.4 0.5 - 2.0 mmol/L [facility] Blood 03/31/2025 6:54 PM EDT 03/31/2025 7:19 PM EDT us Figueroa Brian MD LAB BLOOD BKR ORDERABLES Final Result Performing Organization Address [facility] Co de Phone Number [address] [address] * FEMORAL ARTERIOGRAM (03/31/2025 3:27 PM EDT) Anatomical Region Laterality Modality X-Ray Angiograph y 03/31/2025 3:27 PM EDT Narrative 04/02/2025 5:41 PM EDT Cardiac Catheterization Report [facility] [address] CARDIAC CATHETERIZATION LABORATORY FINAL REPORT PATIENT NAME:ADEEL SOFIA AGE: 54 CASE DATE/TIME: 03/31/2025 01:19 PM DESTINATION: Leandro Toure DIAGNOSTIC ATTENDING MD: Kandi Tapia MD DIAGNOSTIC FELLOW MD: Hernandez Bess MD, MPH INTERVENTIONAL ATTENDING MD: Kandi Tapia MD PRELIMINARY DIAGNOSES: Atherosclerotic heart disease of little shell tribe coronary artery without angina pectoris FINAL DIAGNOSES: Atherosclerotic heart disease of little shell tribe coronary artery without angina pectoris, Unstable angina, INDICATION(S) FOR PRIMARY, SECONDARY PROCEDURE: 54-year-old man with severe LMCA with CCS 3 angina now admitted for CABG vs. LM PCI discussion. He ultimately chose to pursue high risk PCI and has undergone ASA desensitization. DIAGNOSTIC SUMMARY: 1. USG RFV Access - Micropuncture technique, mid femoral head 2. Non tunneled central line 3. USG RFA Access - Micropuncture technique, mid femoral head 4. Iliofemoral angiography - No significant disease 5. Coronary angiography 7F EBU 4.0 LM: Mid vessel 80% lesion. Trifucates into LAD, LCX and RI LAD: Large, reaches apex. Proximal moderate diffuse disease. Large D1/dual LAD ostial 20% disease. RI: Medium sized vessel. Mild proximal disease. LCX: Medium sized. Retroflexed with proximal 40% disease. RCA: not injected 6. PCI LAD 7. IVUS LAD 8. IVUS LMCA 9. PCI LMCA 10. PCI LCX 11. IVUS LCX INTERVENTIONAL SUMMARY: PCI LM, LAD, LCX with IVUS guidance - EBU 4 sat well - Wired LAD, RI, LCX (required SC 120) with WHW - Ballooned LM with 2.5 compliant balloon - IVUS performed of LAD-LMCA, demonstrating severe proximal LAD disease by IVUS criteria. - We wired the D1 for protection with LAD provisional strategy - Additional Pre-dil LAD/LM: 3.0/3.5 NC - LAD stent: 2.5x33 Xience; Post dilated 3.5 NC - LAD-LM stent: 3.5x23 Xience (Post dilated 3.5/4.0/4.5 NC) - Repeat angio showed plaque shift into the LCX. We rewired and plant to TAP. Pre-dil 2.0/2.5 NC. IVUS performed for stent sizing - Stent: LCx 2.5x12 mm Xience, Kissed with 3.75 NC in LM and stent balloon - Repeat IVUS of LCX and LAD-LM showed well apposed and expanded stents. There was no evidence of edge dissection. - Final angio with JOESPH III flow Case required 400% more effort d/t need for multiple wires and LM stenting with need for bifurcation PCI. PATIENT CONDITION, PLAN AND RECOMMENDATIONS: Tolerated well. Perclosed RFA, RFV. Lido epi given Loaded with Brilinta and ASA, continue 81 mg daily ASA and Brilinta 90 mg BID. Return to floors. Follow up with primary tree feller ANTIPLATELET & ANTICOAGULATION RECOMMENDATIONS: Aspirin: 81 mg daily indefinitely Ticagrelor: 90 mg BID 1 year PROCEDURES: 1. USG RFV Access 2. Non tunneled central line 3. USG RFA Access 4. Iliofemoral angiography 5. Coronary angiography 6. PCI LAD 7. IVUS LAD 8. IVUS LMCA 9. PCI LMCA 10. PCI LCX 11. IVUS LCX 12. Perclose RFA, RFV Ultrasound guidance for vascular access Insertion of non-tunneled centrally inserted central venous catheter; age 5 years or older Coronary Angiogram with iliofemoral angio including S&I Percutaneous transcatheter placement of intracoronary stent(s), with coronary angioplasty when performed; single major coronary artery or branch Percutaneous transcatheter placement of intracoronary stent(s), with coronary angioplasty when performed; each additional branch or a major coronary artery (In addition to code for primary procedure) IVUS 1st IVUS 2nd IVUS 3rd Perclose Moderate sedation provided by the same physician performing procedure, requiring the presence of an independent trained observer to assist in the monitoring of the patients LOC and physiol status; initial 15 minutes, patient 5 years or older Moderate sedation provided by the same physician performing procedure, requiring the presence of an independent trained observer to assist in the monitoring of the patients LOC and physiol status; initial 15 minutes, patient 5 years or older DIAGNOSTIC TECHNIQUE: Under Lidocaine 2% local anesthesia a 7F introducer was placed in the right femoral artery using modified Seldinger technique. Selective coronary arteriography was then performed using a 5 F Stalin left number 3.5 catheter to engage the left coronary artery and a 5 F Stalin right number 4 catheter to engage the right coronary artery. Right and left coronary arteriography were performed in multiple views by hand injections of Omnipaque 350. Following the procedure, the sheath was removed. Right femoral angiography was performed for the purpose of assessing access site. Under Lidocaine 2% local anesthesia a 7 F introducer was placed in the right femoral vein. HEMODYNAMICS: STATE: Rest Heart rate (bpm):71 PRESSURES(mmHg): AO 92 / 52 / 73 CORONARY ANATOMY FINDINGS: Dominance: Right Left Main: The left main coronary artery originates from the left sinus of Valsalva. It is large sized and medium length vessel. Left main trifurcates and gives origin to Left Anterior Descending, Left Circumflex and Ramus coronary arteries. It is medium sized vessel. Mid LMCA has a 80 % stenosis. LAD: The left anterior descending coronary artery originates from the left main. It is large sized vessel reaching beyond the apex of the heart. It gives origin to 2 moderate sized diagonal arteries. Left Circumflex: The left circumflex coronary artery originates from the left main. It is medium sized vessel. It is short and non-dominant. It gives origin to 2 moderate sized obtuse marginal arteries. RCA: RCA is a large dominant vessel. It originates from the right sinus of Valsalva. DECISION STATEMENT: At the conclusion of the diagnostic cardiac catheterization, the findings were assessed in conjunction with the clinical data and with the input of the referring tree feller. Based on these considerations, we decided to perform the interventional procedure. CARDIAC INTERVENTIONAL TECHNIQUE: - A [employer] 7F Launcher 7F EBU 4.0 guiding catheter was inserted over a guidewire and engaged into the left coronary ostium. Coronary angiogram was performed in orthogonal views to ascertain the guide position. - A Asahi INTECC 0.014in DANIELA BLUE coronary wire was manipulated into the distal LAD. Its position was confirmed by contrast injection. - A [employer] .014 in SUPERCROSS 120 Angled tip microcatheter was advanced into the distal circumflex coronary artery over a coronary guidewire. - A [employer] INTECC 0.014in DANIELA BLUE coronary wire was manipulated into the distal circumflex coronary artery. Its position was confirmed by contrast injection. - A [employer]TECC 0.014in DANIELA BLUE coronary wire was manipulated into the distal ramus coronary artery. Its position was confirmed by contrast injection. - The lesion of little shell tribe Mid LMCA was crossed with a [employer] Takeru RX balloon catheter of 2.50 mm and 15 mm length and pre-dilatation was performed. Maximal inflation pressure was 16 CARO. - A 3F Netsket OPTICROSS HD [id number] intravascular ultrasound catheter was inserted over the guide wire into the little shell tribe Proximal LAD. Image recording was initiated and coronary ultrasound images were acquired during slow pullback. After completion of intravascular imaging, the catheter was removed. - A [employer] INTECC 0.014in DANIELA BLUE coronary wire was manipulated into the distal first diagonal branch. Its position was confirmed by contrast injection. - The lesion of little shell tribe Proximal LAD was crossed with a [employer] Brandan MILES balloon catheter of 3.0 mm and 15 mm length and pre-dilatation was performed. Maximal inflation pressure was 18 CARO. - The lesion of little shell tribe Proximal LAD was crossed with a Biotronik Brandan MILES balloon catheter of 3.5 mm and 20 mm length and pre-dilatation was performed. Maximal inflation pressure was 14 CARO. - A stent delivery system with Ross XIENCE SKYPOINT SEPIDEH RX stent of 2.50 mm and 33 mm long was inserted over the wire and under fluoroscopic guidance, the stent was placed across the lesion of little shell tribe Proximal LAD. - The lesion of little shell tribe Proximal LAD was crossed with a Biotronik Brandan MILES balloon catheter of 3.5 mm and 20 mm length and post-dilatation was performed. Maximal inflation pressure was 14 CARO. - A stent delivery system with Ross XIENCE SKYPOINT SEPIDEH RX stent of 3.50 mm and 23 mm long was inserted over the wire and under fluoroscopic guidance, the stent was placed across the lesion of little shell tribe Mid LMCA. - The lesion of little shell tribe Mid LMCA was crossed with a Biotronik Brandan MILES balloon catheter of 3.5 mm and 20 mm length and post-dilatation was performed. Maximal inflation pressure was 14 CARO. - The lesion of little shell tribe Mid LMCA was crossed with a He[employer]. PA Takeru RX balloon catheter of 4.0 mm and 8 mm length and post-dilatation was performed. Maximal inflation pressure was 18 CARO. - The lesion of little shell tribe Mid LMCA was crossed with a Biotronik Brandan MILES balloon catheter of 4.5 mm and 8 mm length and post-dilatation was performed. Maximal inflation pressure was 18 CARO. - A [employer] INTECC 0.014in DANIELA BLUE coronary wire was manipulated into the distal circumflex coronary artery. Its position was confirmed by contrast injection. - The lesion of little shell tribe Proximal Circumflex was crossed with a [employer] Scientific Emerge Monorail balloon catheter of 2.00 mm and 12 mm length and pre-dilatation was performed. Maximal inflation pressure was 14 CARO. - The lesion of little shell tribe Proximal Circumflex was crossed with a He[employer]og[employer]. TAKERU NC RX BALLOON balloon catheter of 2.5 mm and 21 mm length and pre-dilatation was performed. Maximal inflation pressure was 18 CARO. - A 3F Koloa [employer] OPTICROSS HD 60MHZ intravascular ultrasound catheter was inserted over the guide wire into the little shell tribe Proximal Circumflex. Image recording was initiated and coronary ultrasound images were acquired during slow pullback. After completion of intravascular imaging, the catheter was removed. - A stent delivery system with Spry XIENCE SKYPOINT SEPIDEH RX stent of 2.50 mm and 12 mm long was inserted over the wire and under fluoroscopic guidance, the stent was placed across the lesion of little shell tribe Proximal Circumflex. - The lesion of little shell tribe Proximal LAD was crossed with Ganjiwang NC Emerge Monorail balloon catheter of 3.75 mm and 12 mm length and post-dilatation was performed. Maximal inflation pressure was 10 CARO. - A 3F Koloa [employer] OPTICROSS HD 60MHZ intravascular ultrasound catheter was inserted over the guide wire into the little shell tribe Proximal Circumflex. Image recording was initiated and coronary ultrasound images were acquired during slow pullback. After completion of intravascular imaging, the catheter was removed. - A 3F Koloa [employer] OPTICROSS HD 60MHZ intravascular ultrasound catheter was inserted over the guide wire into the little shell tribe Proximal LAD. Image recording was initiated and coronary ultrasound images were acquired during slow pullback. After completion of intravascular imaging, the catheter was removed. - Stenting of proximal third of the little shell tribe Proximal LAD was successful. Pre-intervention stenosis was 70%. Final post-intervention stenosis was 0%. There was no thrombus. JOESPH flow was 3: Complete and Brisk Flow/Perfusion. There was no dissection. - Stenting of proximal third of the little shell tribe Proximal Circumflex was successful. Pre-intervention stenosis was 40%. Final post-intervention stenosis was 0%. There was no thrombus. JOESPH flow was 3: Complete and Brisk Flow/Perfusion. There was no dissection. - Stenting of distal third of the little shell tribe Mid LMCA was successful. Pre-intervention stenosis was 80%. Final post-intervention stenosis was 0%. There was no thrombus. JOESPH flow was 3: Complete and Brisk Flow/Perfusion. There was no dissection. EQUIPMENT: [employer]., NC Takeru RX, Coronary Balloon, 4.0, 8 Biotronik, Brandan MILES, Coronary Balloon, 4.5, 8 Biotronik, Brandan MILES, Coronary Balloon, 4.5, 8 Biotronik, Brandan MILES, Coronary Balloon, 3.5, 20 Ross, XIENCE SKYPOINT SEPIDEH RX, Drug Eluting Stent, 3.50, 23 Terumo Medical Scot., PA Takeru RX, Coronary Balloon, 4.0, 8 Koloa Scientific, Emerge Monorail, Coronary Balloon, 2.00, 12 Koloa [employer], OPTICROSS HD 60MHZ, IVUS Transducer, 3F, 0 Ross, XIENCE SKYPOINT SEPIDEH RX, Drug Eluting Stent, 2.50, 12 Ross Vascular, PA Trek Avtar RX, Coronary Balloon, 5.0, 8 Koloa Scientific, NC Emerge Monorail, Coronary Balloon, 3.75, 12 Koloa Scient[employer]c, OPTICROSS HD 60MHZ, IVUS Transducer, 3F, 0 Koloa Scientifc, OPTICROSS HD 60MHZ, IVUS Transducer, 3F, 0 [employer], CHARITO Stiffened Dilator, Sheath, 4F, 10 Terumo Medical Scot., [place], Sheath, 7F, 10 [employer], CHARITO Stiffened Dilator, Sheath, 4F, 10 Cordis, BRITE TIP, Sheath, 7F, 45 Ross, Versacore MOD J, Peripheral Guidewire, 175 Terumo Medical Scot., Runthrough NS Extra Floppy, Coronary Guidewire, .014 in, 180 Medtronic, Launcher 7F EBU 4.0, Guiding Catheter, 7F, 100 Asahi INTECC, DANIELA BLUE, Coronary Guidewire, 0.014in, 180 Vascular Solutions, SUPERCROSS 120 Angled tip, Microcatheter, .014 in, 130 Terumo, Takeru RX, Coronary Balloon, 2.50, 15 Koloa Scientifc, OPTICROSS HD 60MHZ, IVUS Transducer, 3F, 0 Terumo Medical Scot., TAKERU NC RX BALLOON, Coronary Balloon, 2.5, 21 Ross, XIENCE SKYPOINT SEPIDEH RX, Drug Eluting Stent, 2.50, 33 [facility] Scientific, PA EMERGE Monorail, Coronary Balloon, 3, 20 [facility] Scientific, PA EMERGE Monorail, Coronary Balloon, 3, 20 Biotronik, Brandan MILES, Coronary Balloon, 3.0, 15 Biotronik, Brandan MILES, Coronary Balloon, 3.0, 15 Koloa Scientifc, OPTICROSS HD 60MHZ, IVUS Transducer, 3F, 0 Biotronik, Brandan MILES, Coronary Balloon, 3.5, 20 Biotronik, Brandan MILES, Coronary Balloon, 3.5, 20 ACTIVATED CLOTTING TIME: Time of test Sec 03/31/2025 1:41:18 PM 262 03/31/2025 3:04:49 PM 275 MEDICATIONS: FENTANYL (PF) 50 MCG/ML INJECTION SOLUTION : 50 mcg Intravenous FENTANYL (PF) 50 MCG/ML INJECTION SOLUTION : 50 mcg Intravenous MIDAZOLAM (PF) 1 MG/ML INJECTION SOLUTION : 1 mg Intravenous MIDAZOLAM (PF) 1 MG/ML INJECTION SOLUTION : 1 mg Intravenous LIDOCAINE HCL 20 MG/ML (2 %) INJECTION SOLUTION : 5 ml Subcutaneous HEPARIN (PORCINE) 1,000 UNIT/ML INJECTION SOLUTION : 7500 units Intravenous HEPARIN (PORCINE) 1,000 UNIT/ML INJECTION SOLUTION : 3000 units Intravenous HEPARIN (PORCINE) 1,000 UNIT/ML INJECTION SOLUTION : 2000 units Intravenous HEPARIN (PORCINE) 1,000 UNIT/ML INJECTION SOLUTION : 1000 units Intravenous HEPARIN (PORCINE) 1,000 UNIT/ML INJECTION SOLUTION : 1000 units Intravenous OSM_NITROGLYCERIN 100 MCG/ML INTRA-CORONARY : 150 mcg Intracoronary TICAGRELOR 90 MG TABLET : 180 mg Oral LIDOCAINE 1 %-EPINEPHRINE 1:100,000 INJECTION SOLUTION : 10 ml Subcutaneous ASPIRIN 81 MG CHEWABLE TABLET Oral CASE DURATION: 127 minutes VASCULAR ACCESS: Routine CONTRAST Volume(ml) Omnipaque 350 150 ARTERIAL ACCESS SITE: femoral. ANESTHETIC: Local X-RAY DOSE: Fluro Time: 43.6 min . Kerma Area Product: 44.2 (Gy.cm2) Reference Air Kerma: 776 (mGy) The procedural team has confirmed that the Time-Out has occurred. Anesthetic: Local Estimated Blood loss: <50 cc Specimens: Procedural findings were communicated to: MD Kandi Bowman MD was personally present during the entire procedure. I was present from the first injection of medication for sedation and continuously for the administration and monitoring of sedation for 134 minutes. The sedation level was moderate. The patients post-sedation status at the end of the procedure was stable. EMERGENCY CONTACTS: Kandi Tapia MD Pager: [phone] This report has been electronically signed by Dr. Kandi Tapia MD, Date: 04/02/2025 5:41:07 PM. This is a Final Report. Preliminary report was initially submitted on 04/01/2025 9:53:07 PM by Kandi Tapia MD. Reference Ranges: All Hemodynamics pressure measurements are in mm Hg Oxygen saturation - Arterial: 90-100% - Mixed venous: 60-80% ACT - 170-230 sec for patients on G2b-3a inhibitors - 200-240 sec for patients off G2b-3a inhibitors Finger stick glucose - Adult fastin-140 mg/dl - Non-fastin-200 mg/dl - Critical values: <40 or >500 mg/dl Procedure Note Kandi Tapia MD - 04/02/2025 Cardiac Catheterization Report [facility] CARDIAC CATHETERIZATION LABORATORY FINAL REPORT PATIENT NAME:ADEEL SOFIA AGE: 54 CASE DATE/TIME: 03/31/2025 01:19 PM DESTINATION: Leandro Toure DIAGNOSTIC ATTENDING MD: Kandi Tapia MD DIAGNOSTIC FELLOW MD: Hernandez Bess MD, MPH INTERVENTIONAL ATTENDING MD: Kandi Tapia MD PRELIMINARY DIAGNOSES: 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 LM PCI discussion. He ultimately chose to pursue high risk PCI and has undergone ASA desensitization. DIAGNOSTIC SUMMARY: 1. USG RFV Access - Micropuncture technique, mid femoral head 2. Non tunneled central line 3. USG RFA Access - Micropuncture technique, mid femoral head 4. Iliofemoral angiography - No significant disease 5. Coronary angiography 7F EBU 4.0 LM: Mid vessel 80% lesion. Trifucates into LAD, LCX and RI LAD: Large, reaches apex. Proximal moderate diffuse disease. Large D1/dual LAD ostial 20% disease. RI: Medium sized vessel. Mild proximal disease. LCX: Medium sized. Retroflexed with proximal 40% disease. RCA: not injected 6. PCI LAD 7. IVUS LAD 8. IVUS LMCA 9. PCI LMCA 10. PCI LCX 11. IVUS LCX INTERVENTIONAL SUMMARY: PCI LM, LAD, LCX with IVUS guidance - EBU 4 sat well - Wired LAD, RI, LCX (required SC 120) with WHW - Ballooned LM with 2.5 compliant balloon - IVUS performed of LAD-LMCA, demonstrating severe proximal LAD disease by IVUS criteria. - We wired the D1 for protection with LAD provisional strategy - Additional Pre-dil LAD/LM: 3.0/3.5 NC - LAD stent: 2.5x33 Xience; Post dilated 3.5 NC - LAD-LM stent: 3.5x23 Xience (Post dilated 3.5/4.0/4.5 NC) - Repeat angio showed plaque shift into the LCX. We rewired and plant to TAP. Pre-dil 2.0/2.5 NC. IVUS performed for stent sizing - Stent: LCx 2.5x12 mm Xience, Kissed with 3.75 NC in LM and stent balloon - Repeat IVUS of LCX and LAD-LM showed well apposed and expanded stents. There was no evidence of edge dissection. - Final angio with JOESPH III flow Case required 400% more effort d/t need for multiple wires and LMstenting with need for bifurcation PCI. PATIENT CONDITION, PLAN AND RECOMMENDATIONS: Tolerated well. Perclosed RFA, RFV. Lido epi given Loaded with Brilinta and ASA, continue 81 mg daily ASA and Brilinta 90mg BID. Return to floors. Follow up with primary tree feller ANTIPLATELET & ANTICOAGULATION RECOMMENDATIONS: Aspirin: 81 mg daily indefinitely Ticagrelor: 90 mg BID 1 year PROCEDURES: 1. USG RFV Access 2. Non tunneled central line 3. USG RFA Access 4. Iliofemoral angiography 5. Coronary angiography 6. PCI LAD 7. IVUS LAD 8. IVUS LMCA 9. PCI LMCA 10. PCI LCX 11. IVUS LCX 12. Perclose RFA, RFV Ultrasound guidance for vascular access Insertion of non-tunneled centrally inserted central venous catheter; age5 years or older Coronary Angiogram with iliofemoral angio including S&I Percutaneous transcatheter placement of intracoronary stent(s), with coronary angioplasty when performed; single major coronary artery or branch Percutaneous transcatheter placement of intracoronary stent(s), with coronary angioplasty when performed; each additional branch or a major coronary artery (In addition to code for primary procedure) IVUS 1st IVUS 2nd IVUS 3rd Perclose Moderate sedation provided by the same physician performing procedure, requiring the presence of an independent trained observer to assist inthe monitoring of the patients LOC and physiol status; initial 15 minutes,patient 5 years or older Moderate sedation provided by the same physician performing procedure, requiring the presence of an independent trained observer to assist inthe monitoring of the patients LOC and physiol status; initial 15 minutes,patient 5 years or older DIAGNOSTIC TECHNIQUE: Under Lidocaine 2% local anesthesia a 7F introducer was placed in the right femoral artery using modified Seldinger technique. Selectivecoronary arteriography was then performed using a 5 F Stalin left number 3.5 catheter to engage the left coronary artery and a 5 F Stalin rightnumber 4 catheter to engage the right coronary artery. Right and left coronary arteriography were performed in multiple views by hand injections of Omnipaque 350. Following the procedure, the sheath was removed. Right femoral angiography was performed for the purpose of assessing access site. Under Lidocaine 2% local anesthesia a 7 F introducer was placed in the right femoral vein. HEMODYNAMICS: STATE: Rest Heart rate (bpm):71 PRESSURES(mmHg): AO 92 / 52 / 73 CORONARY ANATOMY FINDINGS: Dominance: Right Left Main: The left main coronary artery originates from the left sinus of Valsalva.It is large sized and medium length vessel. Left main trifurcates and givesorigin to Left Anterior Descending, Left Circumflex and Ramus coronaryarteries. It is medium sized vessel. Mid LMCA has a 80 % stenosis. LAD: The left anterior descending coronary artery originates from the leftmain. It is large sized vessel reaching beyond the apex of the heart. It givesorigin to 2 moderate sized diagonal arteries. Left Circumflex: The left circumflex coronary artery originates from the left main. It ismedium sized vessel. It is short and non-dominant. It gives origin to 2moderate sized obtuse marginal arteries. RCA: RCA is a large dominant vessel. It originates from the right sinus of Valsalva. DECISION STATEMENT: At the conclusion of the diagnostic cardiac catheterization, thefindings were assessed in conjunction with the clinical data and with the inputof the referring tree feller. Based on these considerations, we decided to perform the interventional procedure. CARDIAC INTERVENTIONAL TECHNIQUE: - A Fluid Stone 7F Launcher 7F EBU 4.0 guiding catheter was inserted over a guidewire and engaged into the left coronary ostium. Coronaryangiogram was performed in orthogonal views to ascertain the guide position. - A Asahi INTECC 0.014in DANIELA BLUE coronary wire was manipulated into the distal LAD. Its position was confirmed by contrast injection. - A Vascular Solutions .014 in SUPERCROSS 120 Angled tip microcatheter was advanced into the distal circumflex coronary arteryover a coronary guidewire. - A Asahi INTECC 0.014in DANIELA BLUE coronary wire was manipulated into the distal circumflex coronary artery. Its position was confirmedby contrast injection. - A Asahi INTECC 0.014in DANIELA BLUE coronary wire was manipulated into the distal ramus coronary artery. Its position was confirmed bycontrast injection. - The lesion of little shell tribe Mid LMCA was crossed with a [employer] Takeru RX balloon catheter of 2.50 mm and 15 mm length and pre-dilatation was performed. Maximal inflation pressure was 16 CARO. - A 3F [employer] OPTICROSS HD 60MHZ intravascular ultrasound catheter was inserted over the guide wire into the little shell tribe Proximal LAD. Image recording was initiated and coronary ultrasound images were acquired during slow pullback. After completion of intravascularimaging, the catheter was removed. - A Asahi INTECC 0.014in DANIELA BLUE coronary wire was manipulated into the distal first diagonal branch. Its position was confirmed bycontrast injection. - The lesion of little shell tribe Proximal LAD was crossed with a BiotronikPantera MILES balloon catheter of 3.0 mm and 15 mm length and pre-dilatation was performed. Maximal inflation pressure was 18 CARO. - The lesion of little shell tribe Proximal LAD was crossed with a BiotronikPantera MILES balloon catheter of 3.5 mm and 20 mm length and pre-dilatation was performed. Maximal inflation pressure was 14 CARO. - A stent delivery system with Ross XIENCE SKYPOINT SEPIDEH RX stent of 2.50 mm and 33 mm long was inserted over the wire and under fluoroscopic guidance, the stent was placed across the lesion of little shell tribe Proximal LAD. - The lesion of little shell tribe Proximal LAD was crossed with a BiotronikPantera MILES balloon catheter of 3.5 mm and 20 mm length and post-dilatation was performed. Maximal inflation pressure was 14 CARO. - A stent delivery system with Ross XIENCE SKYPOINT SEPIDEH RX stent of 3.50 mm and 23 mm long was inserted over the wire and under fluoroscopic guidance, the stent was placed across the lesion of little shell tribe Mid LMCA. - The lesion of little shell tribe Mid LMCA was crossed with a Biotronik Brandan MILES balloon catheter of 3.5 mm and 20 mm length and post-dilatation was performed. Maximal inflation pressure was 14 CARO. - The lesion of little shell tribe Mid LMCA was crossed with a [employer]. [place] Takeru RX balloon catheter of 4.0 mm and 8 mm length and post-dilatation was performed. Maximal inflation pressure was 18 CARO. - The lesion of little shell tribe Mid LMCA was crossed with a Biotronik Brandan MILES balloon catheter of 4.5 mm and 8 mm length and post-dilatation was performed. Maximal inflation pressure was 18 CARO. - A [employer] 0.014in DANIELA BLUE coronary wire was manipulated into the distal circumflex coronary artery. Its position was confirmedby contrast injection. - The lesion of little shell tribe Proximal Circumflex was crossed with a [employer] Scientific Emerge Monorail balloon catheter of 2.00 mm and 12 mm length and pre-dilatation was performed. Maximal inflation pressure was 14 CARO. - The lesion of little shell tribe Proximal Circumflex was crossed with a [employer]. TAKERU NC RX BALLOON balloon catheter of 2.5 mm and 21 mm length and pre-dilatation was performed. Maximal inflationpressure was 18 CARO. - A 3F [facility] [employer] HD 60MHZ intravascular ultrasound catheter was inserted over the guide wire into the little shell tribe Proximal Circumflex. Image recording was initiated and coronary ultrasound images were acquired during slow pullback. After completion of intravascular imaging, the catheter was removed. - A stent delivery system with Ross XIENCE SKYPOINT SEPIDEH RX stent of 2.50 mm and 12 mm long was inserted over the wire and under fluoroscopic guidance, the stent was placed across the lesion of little shell tribe Proximal Circumflex. - The lesion of little shell tribe Proximal LAD was crossed with Ganji[employer]NC [employer] Monorail balloon catheter of 3.75 mm and 12 mm length and post-dilatation was performed. Maximal inflation pressure was 10 CARO. - A 3F [employer] OPTICROSS HD 60MHZ intravascular ultrasound catheter was inserted over the guide wire into the little shell tribe Proximal Circumflex. Image recording was initiated and coronary ultrasound images were acquired during slow pullback. After completion of intravascular imaging, the catheter was removed. - A 3F [employer] OPTICROSS HD 60MHZ intravascular ultrasound catheter was inserted over the guide wire into the little shell tribe Proximal LAD. Image recording was initiated and coronary ultrasound images were acquired during slow pullback. After completion of intravascularimaging, the catheter was removed. - Stenting of proximal third of the little shell tribe Proximal LAD was successful. Pre-intervention stenosis was 70%. Final post-intervention stenosis was0%. There was no thrombus. JOESPH flow was 3: Complete and Brisk Flow/Perfusion. There was no dissection. - Stenting of proximal third of the little shell tribe Proximal Circumflex was successful. Pre-intervention stenosis was 40%. Final post-intervention stenosis was0%. There was no thrombus. JOESPH flow was 3: Complete and Brisk Flow/Perfusion. There was no dissection. - Stenting of distal third of the little shell tribe Mid LMCA was successful. Pre-intervention stenosis was 80%. Final post-intervention stenosis was0%. There was no thrombus. JOESPH flow was 3: Complete and Brisk Flow/Perfusion. There was no dissection. EQUIPMENT: [employer] Scot., NC Takeru RX, Coronary Balloon, 4.0, 8 Biotronik, Brandan MILES, Coronary Balloon, 4.5, 8 Biotronik, Brnadan MILES, Coronary Balloon, 4.5, 8 Biotronik, Brandan MILES, Coronary Balloon, 3.5, 20 Ross, XIENCE SKYPOINT SEPIDEH RX, Drug Eluting Stent, 3.50, 23 TerWilshire Axon Scot., NC Takeru RX, Coronary Balloon, 4.0, 8 Koloa [employer], Emerge Monorail, Coronary Balloon, 2.00, 12 Koloa Scient[employer], OPTICROSS HD 60MHZ, IVUS Transducer, 3F, 0 Ross, XIENCE SKYPOINT SEPIDEH RX, Drug Eluting Stent, 2.50, 12 Ross Vascular, NC Trek Avtar RX, Coronary Balloon, 5.0, 8 Koloa Scientific, PA Emerge Monorail, Coronary Balloon, 3.75, 12 Koloa Scientifc, OPTICROSS HD 60MHZ, IVUS Transducer, 3F, 0 Koloa Scientifc, OPTICROSS HD 60MHZ, IVUS Transducer, 3F, 0 Backand Medical, CHARITO Stiffened Dilator, Sheath, 4F, 10 TerumPayActiv Medical Scot., [place], Sheath, 7F, 10 [facility], CHARITO Stiffened Dilator, Sheath, 4F, 10 Cordis, BRITE TIP, Sheath, 7F, 45 Ross, Versacore MOD J, Peripheral Guidewire, 175 TerumPovo Scot., Runthrough NS Extra Floppy, Coronary Guidewire, .014in, 180 Medtronic, Launcher 7F EBU 4.0, Guiding Catheter, 7F, 100 Asahi INTECC, DANIELA BLUE, Coronary Guidewire, 0.014in, 180 Vascular Solutions, SUPERCROSS 120 Angled tip, Microcatheter, .014 in,130 Terumo, Takeru RX, Coronary Balloon, 2.50, 15 Koloa Scientifc, OPTICROSS HD 60MHZ, IVUS Transducer, 3F, 0 [employer]umPayActiv Medical Scot., TAKERU NC RX BALLOON, Coronary Balloon, 2.5, 21 Ross, XIENCE SKYPOINT SEPIDEH RX, Drug Eluting Stent, 2.50, 33 [facility] Scientific, PA EMERGE Monorail, Coronary Balloon, 3, 20 [facility] Scientific, PA EMERGE Monorail, Coronary Balloon, 3, 20 Biotronik, Brandan MILES, Coronary Balloon, 3.0, 15 Biotronik, Brandan MILES, Coronary Balloon, 3.0, 15 Koloa Scientifc, OPTICROSS HD 60MHZ, IVUS Transducer, 3F, 0 Biotronik, Brandan MILES, Coronary Balloon, 3.5, 20 Biotronik, Brandan MILES, Coronary Balloon, 3.5, 20 ACTIVATED CLOTTING TIME: Time of test Sec 03/31/2025 1:41:18 PM 262 03/31/2025 3:04:49 PM 275 MEDICATIONS: FENTANYL (PF) 50 MCG/ML INJECTION SOLUTION : 50 mcg Intravenous FENTANYL (PF) 50 MCG/ML INJECTION SOLUTION : 50 mcg Intravenous MIDAZOLAM (PF) 1 MG/ML INJECTION SOLUTION : 1 mg Intravenous MIDAZOLAM (PF) 1 MG/ML INJECTION SOLUTION : 1 mg Intravenous LIDOCAINE HCL 20 MG/ML (2 %) INJECTION SOLUTION : 5 ml Subcutaneous HEPARIN (PORCINE) 1,000 UNIT/ML INJECTION SOLUTION : 7500 units Intravenous HEPARIN (PORCINE) 1,000 UNIT/ML INJECTION SOLUTION : 3000 units Intravenous HEPARIN (PORCINE) 1,000 UNIT/ML INJECTION SOLUTION : 2000 units Intravenous HEPARIN (PORCINE) 1,000 UNIT/ML INJECTION SOLUTION : 1000 units Intravenous HEPARIN (PORCINE) 1,000 UNIT/ML INJECTION SOLUTION : 1000 units Intravenous OSM_NITROGLYCERIN 100 MCG/ML INTRA-CORONARY : 150 mcg Intracoronary TICAGRELOR 90 MG TABLET : 180 mg Oral LIDOCAINE 1 %-EPINEPHRINE 1:100,000 INJECTION SOLUTION : 10 ml Subcutaneous ASPIRIN 81 MG CHEWABLE TABLET Oral CASE DURATION: 127 minutes VASCULAR ACCESS: Routine CONTRAST Volume(ml) Omnipaque 350 150 ARTERIAL ACCESS SITE: femoral. ANESTHETIC: Local X-RAY DOSE: Fluro Time: 43.6 min . Kerma Area Product: 44.2 (Gy.cm2) Reference Air Kerma: 776 (mGy) The procedural team has confirmed that the Time-Out has occurred. Anesthetic: Local Estimated Blood loss: <50 cc Specimens: Procedural findings were communicated to: MD Kandi Bowman MD was personally present during the entire procedure.I was present from the first injection of medication for sedation and continuously for the administration and monitoring of sedation for 134 minutes. The sedation level was moderate. The patients post-sedation status at the end of the procedure was stable. EMERGENCY CONTACTS: Kandi Tapia MD Pager: [phone] This report has been electronically signed by Dr. Kandi Tapia MD,Date: 04/02/2025 5:41:07 PM. This is a Final Report. Preliminary report was initially submitted on04/01/2025 9:53:07 PM by Kandi Tapia MD. Reference Ranges: All Hemodynamics pressure measurements are in mm Hg Oxygen saturation - Arterial: 90-100% - Mixed venous: 60-80% ACT - 170-230 sec for patients on G2b-3a inhibitors - 200-240 sec for patients off G2b-3a inhibitors Finger stick glucose - Adult fastin-140 mg/dl - Non-fastin-200 mg/dl - Critical values: <40 or >500 mg/dl Hernandez Bess MD, MPH CV CARDIAC CATH ORDERA BLES Final Result * PERCUTANEOUS CORONARY INTERVENTION (PCI) LM, INTRAVASCULAR ULTRASOUND, CORONARY (IVUS), PERCUTANEOUS CORONARY INTERVENTION (PCI) LAD, PERCUTANEOUS CORONARY INTERVENTION (PCI) LCX (03/31/2025 3:27 PM EDT) Anatomical Region Laterality Modality X-Ray Angiograph y 03/31/2025 3:27 PM EDT Narrative 04/02/2025 5:41 PM EDT Cardiac Catheterization Report [facility] [address] CARDIAC CATHETERIZATION LABORATORY FINAL REPORT PATIENT NAME:ADEEL SOFIA AGE: 54 CASE DATE/TIME: 03/31/2025 01:19 PM DESTINATION: [place] [id number] DIAGNOSTIC ATTENDING MD: Kandi Tapia MD DIAGNOSTIC FELLOW MD: Hernandez Bess MD, MPH INTERVENTIONAL ATTENDING MD: Kandi Tapia MD PRELIMINARY DIAGNOSES: Atherosclerotic heart disease of little shell tribe coronary artery without angina pectoris FINAL DIAGNOSES: Atherosclerotic heart disease of little shell tribe coronary artery without angina pectoris, Unstable angina, INDICATION(S) FOR PRIMARY, SECONDARY PROCEDURE: 54-year-old man with severe LMCA with CCS 3 angina now admitted for CABG vs. LM PCI discussion. He ultimately chose to pursue high risk PCI and has undergone ASA desensitization. DIAGNOSTIC SUMMARY: 1. USG RFV Access - Micropuncture technique, mid femoral head 2. Non tunneled central line 3. USG RFA Access - Micropuncture technique, mid femoral head 4. Iliofemoral angiography - No significant disease 5. Coronary angiography 7F EBU 4.0 LM: Mid vessel 80% lesion. Trifucates into LAD, LCX and RI LAD: Large, reaches apex. Proximal moderate diffuse disease. Large D1/dual LAD ostial 20% disease. RI: Medium sized vessel. Mild proximal disease. LCX: Medium sized. Retroflexed with proximal 40% disease. RCA: not injected 6. PCI LAD 7. IVUS LAD 8. IVUS LMCA 9. PCI LMCA 10. PCI LCX 11. IVUS LCX INTERVENTIONAL SUMMARY: PCI LM, LAD, LCX with IVUS guidance - EBU 4 sat well - Wired LAD, RI, LCX (required SC 120) with WHW - Ballooned LM with 2.5 compliant balloon - IVUS performed of LAD-LMCA, demonstrating severe proximal LAD disease by IVUS criteria. - We wired the D1 for protection with LAD provisional strategy - Additional Pre-dil LAD/LM: 3.0/3.5 NC - LAD stent: 2.5x33 Xience; Post dilated 3.5 NC - LAD-LM stent: 3.5x23 Xience (Post dilated 3.5/4.0/4.5 NC) - Repeat angio showed plaque shift into the LCX. We rewired and plant to TAP. Pre-dil 2.0/2.5 NC. IVUS performed for stent sizing - Stent: LCx 2.5x12 mm Xience, Kissed with 3.75 NC in LM and stent balloon - Repeat IVUS of LCX and LAD-LM showed well apposed and expanded stents. There was no evidence of edge dissection. - Final angio with JOESPH III flow Case required 400% more effort d/t need for multiple wires and LM stenting with need for bifurcation PCI. PATIENT CONDITION, PLAN AND RECOMMENDATIONS: Tolerated well. Perclosed RFA, RFV. Lido epi given Loaded with Brilinta and ASA, continue 81 mg daily ASA and Brilinta 90 mg BID. Return to floors. Follow up with primary tree feller ANTIPLATELET & ANTICOAGULATION RECOMMENDATIONS: Aspirin: 81 mg daily indefinitely Ticagrelor: 90 mg BID 1 year PROCEDURES: 1. USG RFV Access 2. Non tunneled central line 3. USG RFA Access 4. Iliofemoral angiography 5. Coronary angiography 6. PCI LAD 7. IVUS LAD 8. IVUS LMCA 9. PCI LMCA 10. PCI LCX 11. IVUS LCX 12. Perclose RFA, RFV Ultrasound guidance for vascular access Insertion of non-tunneled centrally inserted central venous catheter; age 5 years or older Coronary Angiogram with iliofemoral angio including S&I Percutaneous transcatheter placement of intracoronary stent(s), with coronary angioplasty when performed; single major coronary artery or branch Percutaneous transcatheter placement of intracoronary stent(s), with coronary angioplasty when performed; each additional branch or a major coronary artery (In addition to code for primary procedure) IVUS 1st IVUS 2nd IVUS 3rd Perclose Moderate sedation provided by the same physician performing procedure, requiring the presence of an independent trained observer to assist in the monitoring of the patients LOC and physiol status; initial 15 minutes, patient 5 years or older Moderate sedation provided by the same physician performing procedure, requiring the presence of an independent trained observer to assist in the monitoring of the patients LOC and physiol status; initial 15 minutes, patient 5 years or older DIAGNOSTIC TECHNIQUE: Under Lidocaine 2% local anesthesia a 7F introducer was placed in the right femoral artery using modified Seldinger technique. Selective coronary arteriography was then performed using a 5 F Stalin left number 3.5 catheter to engage the left coronary artery and a 5 F Stalin right number 4 catheter to engage the right coronary artery. Right and left coronary arteriography were performed in multiple views by hand injections of Omnipaque 350. Following the procedure, the sheath was removed. Right femoral angiography was performed for the purpose of assessing access site. Under Lidocaine 2% local anesthesia a 7 F introducer was placed in the right femoral vein. HEMODYNAMICS: STATE: Rest Heart rate (bpm):71 PRESSURES(mmHg): AO 92 / 52 / 73 CORONARY ANATOMY FINDINGS: Dominance: Right Left Main: The left main coronary artery originates from the left sinus of Valsalva. It is large sized and medium length vessel. Left main trifurcates and gives origin to Left Anterior Descending, Left Circumflex and Ramus coronary arteries. It is medium sized vessel. Mid LMCA has a 80 % stenosis. LAD: The left anterior descending coronary artery originates from the left main. It is large sized vessel reaching beyond the apex of the heart. It gives origin to 2 moderate sized diagonal arteries. Left Circumflex: The left circumflex coronary artery originates from the left main. It is medium sized vessel. It is short and non-dominant. It gives origin to 2 moderate sized obtuse marginal arteries. RCA: RCA is a large dominant vessel. It originates from the right sinus of Valsalva. DECISION STATEMENT: At the conclusion of the diagnostic cardiac catheterization, the findings were assessed in conjunction with the clinical data and with the input of the referring tree feller. Based on these considerations, we decided to perform the interventional procedure. CARDIAC INTERVENTIONAL TECHNIQUE: - A Fluid Stone 7F Launcher 7F EBU 4.0 guiding catheter was inserted over a guidewire and engaged into the left coronary ostium. Coronary angiogram was performed in orthogonal views to ascertain the guide position. - A Asahi INTECC 0.014in DANIELA BLUE coronary wire was manipulated into the distal LAD. Its position was confirmed by contrast injection. - A Vascular Solutions .014 in SUPERCROSS 120 Angled tip microcatheter was advanced into the distal circumflex coronary artery over a coronary guidewire. - A Asahi INTECC 0.014in DANIELA BLUE coronary wire was manipulated into the distal circumflex coronary artery. Its position was confirmed by contrast injection. - A Asahi INTECC 0.014in DANIELA BLUE coronary wire was manipulated into the distal ramus coronary artery. Its position was confirmed by contrast injection. - The lesion of little shell tribe Mid LMCA was crossed with a Project Green Takeru RX balloon catheter of 2.50 mm and 15 mm length and pre-dilatation was performed. Maximal inflation pressure was 16 CARO. - A 3F Netsket OPTICROSS HD 60MHZ intravascular ultrasound catheter was inserted over the guide wire into the [place] Proximal LAD. Image recording was initiated and coronary ultrasound images were acquired during slow pullback. After completion of intravascular imaging, the catheter was removed. - A Asahi INTECC 0.014in DANIELA BLUE coronary wire was manipulated into the distal first diagonal branch. Its position was confirmed by contrast injection. - The lesion of [place] Proximal LAD was crossed with a Biotronik Brandan MILES balloon catheter of 3.0 mm and 15 mm length and pre-dilatation was performed. Maximal inflation pressure was 18 CARO. - The lesion of little shell tribe Proximal LAD was crossed with a Biotronik Brandan MILES balloon catheter of 3.5 mm and 20 mm length and pre-dilatation was performed. Maximal inflation pressure was 14 CARO. - A stent delivery system with Ross XIENCE SKYPOINT SEPIDEH RX stent of 2.50 mm and 33 mm long was inserted over the wire and under fluoroscopic guidance, the stent was placed across the lesion of little shell tribe Proximal LAD. - The lesion of little shell tribe Proximal LAD was crossed with a Biotronik Brandan MILES balloon catheter of 3.5 mm and 20 mm length and post-dilatation was performed. Maximal inflation pressure was 14 CARO. - A stent delivery system with Ross XIENCE SKYPOINT SEPIDEH RX stent of 3.50 mm and 23 mm long was inserted over the wire and under fluoroscopic guidance, the stent was placed across the lesion of little shell tribe Mid LMCA. - The lesion of little shell tribe Mid LMCA was crossed with a Biotronik Brandan MILES balloon catheter of 3.5 mm and 20 mm length and post-dilatation was performed. Maximal inflation pressure was 14 CARO. - The lesion of little shell tribe Mid LMCA was crossed with a [employer]. [place] Takeru RX balloon catheter of 4.0 mm and 8 mm length and post-dilatation was performed. Maximal inflation pressure was 18 CARO. - The lesion of little shell tribe Mid LMCA was crossed with a Biotronik Brandan MILES balloon catheter of 4.5 mm and 8 mm length and post-dilatation was performed. Maximal inflation pressure was 18 CARO. - A GetMaidCC 0.014in DANIELA BLUE coronary wire was manipulated into the distal circumflex coronary artery. Its position was confirmed by contrast injection. - The lesion of little shell tribe Proximal Circumflex was crossed with a VoxPopMe Monorail balloon catheter of 2.00 mm and 12 mm length and pre-dilatation was performed. Maximal inflation pressure was 14 CARO. - The lesion of little shell tribe Proximal Circumflex was crossed with a [employer]. TAKERU NC RX BALLOON balloon catheter of 2.5 mm and 21 mm length and pre-dilatation was performed. Maximal inflation pressure was 18 CARO. - A 3F [facility] OPTICROSS HD 60MHZ intravascular ultrasound catheter was inserted over the guide wire into the little [place] Proximal Circumflex. Image recording was initiated and coronary ultrasound images were acquired during slow pullback. After completion of intravascular imaging, the catheter was removed. - A stent delivery system with Ross XIENCE SKYPOINT SEPIDEH RX stent of 2.50 mm and 12 mm long was inserted over the wire and under fluoroscopic guidance, the stent was placed across the lesion of little shell tribe Proximal Circumflex. - The lesion of little shell tribe Proximal LAD was crossed with [employer] Emerge Monorail balloon catheter of 3.75 mm and 12 mm length and post-dilatation was performed. Maximal inflation pressure was 10 CARO. - A 3F [employer] OPTICROSS HD 60MHZ intravascular ultrasound catheter was inserted over the guide wire into the little [place] tribe Proximal Circumflex. Image recording was initiated and coronary ultrasound images were acquired during slow pullback. After completion of intravascular imaging, the catheter was removed. - A 3F [employer] OPTICROSS HD 60MHZ intravascular ultrasound catheter was inserted over the guide wire into the little shell tribe Proximal LAD. Image recording was initiated and coronary ultrasound images were acquired during slow pullback. After completion of intravascular imaging, the catheter was removed. - Stenting of proximal third of the little shell tribe Proximal LAD was successful. Pre-intervention stenosis was 70%. Final post-intervention stenosis was 0%. There was no thrombus. JOESPH flow was 3: Complete and Brisk Flow/Perfusion. There was no dissection. - Stenting of proximal third of the little shell tribe Proximal Circumflex was successful. Pre-intervention stenosis was 40%. Final post-intervention stenosis was 0%. There was no thrombus. JOESPH flow was 3: Complete and Brisk Flow/Perfusion. There was no dissection. - Stenting of distal third of the little shell tribe Mid LMCA was successful. Pre-intervention stenosis was 80%. Final post-intervention stenosis was 0%. There was no thrombus. JOESPH flow was 3: Complete and Brisk Flow/Perfusion. There was no dissection. EQUIPMENT: [employer] Scot., PA Takeru RX, Coronary Balloon, 4.0, 8 Biotronik, Brandan MILES, Coronary Balloon, 4.5, 8 Biotronik, Brandan MILES, Coronary Balloon, 4.5, 8 Biotronik, Brandan MILES, Coronary Balloon, 3.5, 20 Ross, XIENCE SKYPOINT SEPIDEH RX, Drug Eluting Stent, 3.50, 23 Ter[employer]igator [employer] Medical Scot., PA Takeru RX, Coronary Balloon, 4.0, 8 [employer], Emerge Monorail, Coronary Balloon, 2.00, 12 [employer], OPTICROSS HD 60MHZ, IVUS Transducer, 3F, 0 Ross, XIENCE SKYPOINT SEPIDEH RX, Drug Eluting Stent, 2.50, 12 Ross Vascular, PA Trek Avtar RX, Coronary Balloon, 5.0, 8 [employer], NC Emerge Monorail, Coronary Balloon, 3.75, 12 [employer], OPTICROSS HD 60MHZ, IVUS Transducer, 3F, 0 [employer], OPTICROSS HD 60MHZ, IVUS Transducer, 3F, 0 [employer], CHARITO Stiffened Dilator, Sheath, 4F, 10 Terumo Medical Scot., [place], Sheath, 7F, 10 [employer], CHARITO Stiffened Dilator, Sheath, 4F, 10 Cordis, BRITE TIP, Sheath, 7F, 45 Ross, Versacore MOD J, Peripheral Guidewire, 175 TerumPovo Scot., Runthrough NS Extra Floppy, Coronary Guidewire, .014 in, 180 Medtronic, Launcher 7F EBU 4.0, Guiding Catheter, 7F, 100 Asahi INTECC, DANIELA BLUE, Coronary Guidewire, 0.014in, 180 Vascular Solutions, SUPERCROSS 120 Angled tip, Microcatheter, .014 in, 130 Terumo, Takeru RX, Coronary Balloon, 2.50, 15 [employer], OPTICROSS HD 60MHZ, IVUS Transducer, 3F, 0 Mendor Scot., TAKERU NC RX BALLOON, Coronary Balloon, 2.5, 21 Ross, XIENCE SKYPOINT SEPIDEH RX, Drug Eluting Stent, 2.50, 33 [employer], NC EMERGE Monorail, Coronary Balloon, 3, 20 [employer], NC EMERGE Monorail, Coronary Balloon, 3, 20 Biotronik, Brandan MILES, Coronary Balloon, 3.0, 15 Biotronik, Brandan MILES, Coronary Balloon, 3.0, 15 [employer], OPTICROSS HD 60MHZ, IVUS Transducer, 3F, 0 Biotronik, Brandan MILES, Coronary Balloon, 3.5, 20 Biotronik, Brandan MILES, Coronary Balloon, 3.5, 20 ACTIVATED CLOTTING TIME: Time of test Sec 03/31/2025 1:41:18 PM 262 03/31/2025 3:04:49 PM 275 MEDICATIONS: FENTANYL (PF) 50 MCG/ML INJECTION SOLUTION : 50 mcg Intravenous FENTANYL (PF) 50 MCG/ML INJECTION SOLUTION : 50 mcg Intravenous MIDAZOLAM (PF) 1 MG/ML INJECTION SOLUTION : 1 mg Intravenous MIDAZOLAM (PF) 1 MG/ML INJECTION SOLUTION : 1 mg Intravenous LIDOCAINE HCL 20 MG/ML (2 %) INJECTION SOLUTION : 5 ml Subcutaneous HEPARIN (PORCINE) 1,000 UNIT/ML INJECTION SOLUTION : 7500 units Intravenous HEPARIN (PORCINE) 1,000 UNIT/ML INJECTION SOLUTION : 3000 units Intravenous HEPARIN (PORCINE) 1,000 UNIT/ML INJECTION SOLUTION : 2000 units Intravenous HEPARIN (PORCINE) 1,000 UNIT/ML INJECTION SOLUTION : 1000 units Intravenous HEPARIN (PORCINE) 1,000 UNIT/ML INJECTION SOLUTION : 1000 units Intravenous OSM_NITROGLYCERIN 100 MCG/ML INTRA-CORONARY : 150 mcg Intracoronary TICAGRELOR 90 MG TABLET : 180 mg Oral LIDOCAINE 1 %-EPINEPHRINE 1:100,000 INJECTION SOLUTION : 10 ml Subcutaneous ASPIRIN 81 MG CHEWABLE TABLET Oral CASE DURATION: 127 minutes VASCULAR ACCESS: Routine CONTRAST Volume(ml) Omnipaque 350 150 ARTERIAL ACCESS SITE: femoral. ANESTHETIC: Local X-RAY DOSE: Fluro Time: 43.6 min . Kerma Area Product: 44.2 (Gy.cm2) Reference Air Kerma: 776 (mGy) The procedural team has confirmed that the Time-Out has occurred. Anesthetic: Local Estimated Blood loss: <50 cc Specimens: Procedural findings were communicated to: MD Kandi Bowman MD was personally present during the entire procedure. I was present from the first injection of medication for sedation and continuously for the administration and monitoring of sedation for 134 minutes. The sedation level was moderate. The patients post-sedation status at the end of the procedure was stable. EMERGENCY CONTACTS: Kandi Tapia MD Pager: [phone] This report has been electronically signed by Dr. Kandi Tapia MD, Date: 04/02/2025 5:41:16 PM. This is a Final Report. Preliminary report was initially submitted on 04/01/2025 9:53:07 PM by Kandi Tapia MD. Reference Ranges: All Hemodynamics pressure measurements are in mm Hg Oxygen saturation - Arterial: 90-100% - Mixed venous: 60-80% ACT - 170-230 sec for patients on G2b-3a inhibitors - 200-240 sec for patients off G2b-3a inhibitors Finger stick glucose - Adult fastin-140 mg/dl - Non-fastin-200 mg/dl - Critical values: <40 or >500 mg/dl Procedure Note Kandi Tapia MD - 04/02/2025 Cardiac Catheterization Report [facility] [address] CARDIAC CATHETERIZATION LABORATORY FINAL REPORT PATIENT NAME:ADEEL SOFIA AGE: 54 CASE DATE/TIME: 03/31/2025 01:19 PM DESTINATION: [place] DIAGNOSTIC ATTENDING MD: Kandi Tapia MD DIAGNOSTIC FELLOW MD: Hernandez Bess MD, MPH INTERVENTIONAL ATTENDING MD: Kandi Tapia MD PRELIMINARY DIAGNOSES: 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 LM PCI discussion. He ultimately chose to pursue high risk PCI and has undergone ASA desensitization. DIAGNOSTIC SUMMARY: 1. USG RFV Access - Micropuncture technique, mid femoral head 2. Non tunneled central line 3. USG RFA Access - Micropuncture technique, mid femoral head 4. Iliofemoral angiography - No significant disease 5. Coronary angiography 7F EBU 4.0 LM: Mid vessel 80% lesion. Trifucates into LAD, LCX and RI LAD: Large, reaches apex. Proximal moderate diffuse disease. Large D1/dual LAD ostial 20% disease. RI: Medium sized vessel. Mild proximal disease. LCX: Medium sized. Retroflexed with proximal 40% disease. RCA: not injected 6. PCI LAD 7. IVUS LAD 8. IVUS LMCA 9. PCI LMCA 10. PCI LCX 11. IVUS LCX INTERVENTIONAL SUMMARY: PCI LM, LAD, LCX with IVUS guidance - EBU 4 sat well - Wired LAD, RI, LCX (required SC 120) with WHW - Ballooned LM with 2.5 compliant balloon - IVUS performed of LAD-LMCA, demonstrating severe proximal LAD disease by IVUS criteria. - We wired the D1 for protection with LAD provisional strategy - Additional Pre-dil LAD/LM: 3.0/3.5 NC - LAD stent: 2.5x33 Xience; Post dilated 3.5 NC - LAD-LM stent: 3.5x23 Xience (Post dilated 3.5/4.0/4.5 NC) - Repeat angio showed plaque shift into the LCX. We rewired and plant to TAP. Pre-dil 2.0/2.5 NC. IVUS performed for stent sizing - Stent: LCx 2.5x12 mm Xience, Kissed with 3.75 NC in LM and stent balloon - Repeat IVUS of LCX and LAD-LM showed well apposed and expanded stents. There was no evidence of edge dissection. - Final angio with JOESPH III flow Case required 400% more effort d/t need for multiple wires and LMstenting with need for bifurcation PCI. PATIENT CONDITION, PLAN AND RECOMMENDATIONS: Tolerated well. Perclosed RFA, RFV. Lido epi given Loaded with Brilinta and ASA, continue 81 mg daily ASA and Brilinta 90mg BID. Return to floors. Follow up with primary tree feller ANTIPLATELET & ANTICOAGULATION RECOMMENDATIONS: Aspirin: 81 mg daily indefinitely Ticagrelor: 90 mg BID 1 year PROCEDURES: 1. USG RFV Access 2. Non tunneled central line 3. USG RFA Access 4. Iliofemoral angiography 5. Coronary angiography 6. PCI LAD 7. IVUS LAD 8. IVUS LMCA 9. PCI LMCA 10. PCI LCX 11. IVUS LCX 12. Perclose RFA, RFV Ultrasound guidance for vascular access Insertion of non-tunneled centrally inserted central venous catheter; age5 years or older Coronary Angiogram with iliofemoral angio including S&I Percutaneous transcatheter placement of intracoronary stent(s), with coronary angioplasty when performed; single major coronary artery or branch Percutaneous transcatheter placement of intracoronary stent(s), with coronary angioplasty when performed; each additional branch or a major coronary artery (In addition to code for primary procedure) IVUS 1st IVUS 2nd IVUS 3rd Perclose Moderate sedation provided by the same physician performing procedure, requiring the presence of an independent trained observer to assist inthe monitoring of the patients LOC and physiol status; initial 15 minutes,patient 5 years or older Moderate sedation provided by the same physician performing procedure, requiring the presence of an independent trained observer to assist inthe monitoring of the patients LOC and physiol status; initial 15 minutes,patient 5 years or older DIAGNOSTIC TECHNIQUE: Under Lidocaine 2% local anesthesia a 7F introducer was placed in the right femoral artery using modified Seldinger technique. Selectivecoronary arteriography was then performed using a 5 F Stalin left number 3.5 catheter to engage the left coronary artery and a 5 F Stalin rightnumber 4 catheter to engage the right coronary artery. Right and left coronary arteriography were performed in multiple views by hand injections of Omnipaque 350. Following the procedure, the sheath was removed. Right femoral angiography was performed for the purpose of assessing access site. Under Lidocaine 2% local anesthesia a 7 F introducer was placed in the right femoral vein. HEMODYNAMICS: STATE: Rest Heart rate (bpm):71 PRESSURES(mmHg): AO 92 / 52 / 73 CORONARY ANATOMY FINDINGS: Dominance: Right Left Main: The left main coronary artery originates from the left sinus of Valsalva.It is large sized and medium length vessel. Left main trifurcates and givesorigin to Left Anterior Descending, Left Circumflex and Ramus coronaryarteries. It is medium sized vessel. Mid LMCA has a 80 % stenosis. LAD: The left anterior descending coronary artery originates from the leftmain. It is large sized vessel reaching beyond the apex of the heart. It givesorigin to 2 moderate sized diagonal arteries. Left Circumflex: The left circumflex coronary artery originates from the left main. It ismedium sized vessel. It is short and non-dominant. It gives origin to 2moderate sized obtuse marginal arteries. RCA: RCA is a large dominant vessel. It originates from the right sinus of Valsalva. DECISION STATEMENT: At the conclusion of the diagnostic cardiac catheterization, thefindings were assessed in conjunction with the clinical data and with the inputof the referring tree feller. Based on these considerations, we decided to perform the interventional procedure. CARDIAC INTERVENTIONAL TECHNIQUE: - A Fluid Stone 7F Launcher 7F EBU 4.0 guiding catheter was inserted over a guidewire and engaged into the left coronary ostium. Coronaryangiogram was performed in orthogonal views to ascertain the guide position. - A Melon #usemelon 0.014in DANIELA BLUE coronary wire was manipulated into the distal LAD. Its position was confirmed by contrast injection. - A Vascular Solutions .014 in SUPERCROSS 120 Angled tip microcatheter was advanced into the distal circumflex coronary arteryover a coronary guidewire. - A Asahi INTECC 0.014in DANIELA BLUE coronary wire was manipulated into the distal circumflex coronary artery. Its position was confirmedby contrast injection. - A Asahi INTECC 0.014in DANIELA BLUE coronary wire was manipulated into the distal ramus coronary artery. Its position was confirmed bycontrast injection. - The lesion of little shell tribe Mid LMCA was crossed with a Project Green Takeru RX balloon catheter of 2.50 mm and 15 mm length and pre-dilatation was performed. Maximal inflation pressure was 16 CARO. - A 3F Epiclist HD 60MHZ intravascular ultrasound catheter was inserted over the guide wire into the little shell tribe Proximal LAD. Image recording was initiated and coronary ultrasound images were acquired during slow pullback. After completion of intravascularimaging, the catheter was removed. - A Asahi INTECC 0.014in DANIELA BLUE coronary wire was manipulated into the distal first diagonal branch. Its position was confirmed bycontrast injection. - The lesion of little shell tribe Proximal LAD was crossed with a BiotronikPantera MILES balloon catheter of 3.0 mm and 15 mm length and pre-dilatation was performed. Maximal inflation pressure was 18 CARO. - The lesion of little shell tribe Proximal LAD was crossed with a BiotronikPantera MILES balloon catheter of 3.5 mm and 20 mm length and pre-dilatation was performed. Maximal inflation pressure was 14 CARO. - A stent delivery system with Ross XIENCE SKYPOINT SEPIDEH RX stent of 2.50 mm and 33 mm long was inserted over the wire and under fluoroscopic guidance, the stent was placed across the lesion of little shell tribe Proximal LAD. - The lesion of little shell tribe Proximal LAD was crossed with a BiotronikPantera MILES balloon catheter of 3.5 mm and 20 mm length and post-dilatation was performed. Maximal inflation pressure was 14 CARO. - A stent delivery system with Ross XIENCE SKYPOINT SEPIDEH RX stent of 3.50 mm and 23 mm long was inserted over the wire and under fluoroscopic guidance, the stent was placed across the lesion of little shell tribe Mid LMCA. - The lesion of little shell tribe Mid LMCA was crossed with a PowerOasisroniPhoenix New Media Brandan MILES balloon catheter of 3.5 mm and 20 mm length and post-dilatation was performed. Maximal inflation pressure was 14 CARO. - The lesion of little shell tribe Mid LMCA was crossed with a Healogica. NC Takeru RX balloon catheter of 4.0 mm and 8 mm length and post-dilatation was performed. Maximal inflation pressure was 18 CARO. - The lesion of little shell tribe Mid LMCA was crossed with a Biotronik Brandan MILES balloon catheter of 4.5 mm and 8 mm length and post-dilatation was performed. Maximal inflation pressure was 18 CARO. - A PingMe INTECC 0.014in DANIELA BLUE coronary wire was manipulated into the distal circumflex coronary artery. Its position was confirmedby contrast injection. - The lesion of little shell tribe Proximal Circumflex was crossed with a VoxPopMe Monorail balloon catheter of 2.00 mm and 12 mm length and pre-dilatation was performed. Maximal inflation pressure was 14 CARO. - The lesion of little shell tribe Proximal Circumflex was crossed with a Healogica. TAKERU NC RX BALLOON balloon catheter of 2.5 mm and 21 mm length and pre-dilatation was performed. Maximal inflationpressure was 18 CARO. - A 3F CogMetalentifc OPTICROSS HD 60MHZ intravascular ultrasound catheter was inserted over the guide wire into the little shell tribe Proximal Circumflex. Image recording was initiated and coronary ultrasound images were acquired during slow pullback. After completion of intravascular imaging, the catheter was removed. - A stent delivery system with Ross XIENCE SKYPOINT SEPIDEH RX stent of 2.50 mm and 12 mm long was inserted over the wire and under fluoroscopic guidance, the stent was placed across the lesion of little shell tribe Proximal Circumflex. - The lesion of little shell tribe Proximal LAD was crossed with Koloa TRA Emerge Monorail balloon catheter of 3.75 mm and 12 mm length and post-dilatation was performed. Maximal inflation pressure was 10 CARO. - A 3F Koloa [place] UltiZen Games Information Technologyentifc OPTICROSS HD 60MHZ intravascular ultrasound catheter was inserted over the guide wire into the little shell tribe Proximal Circumflex. Image recording was initiated and coronary ultrasound images were acquired during slow pullback. After completion of intravascular imaging, the catheter was removed. - A 3F Koloa [place] UltiZen Games Information Technologyentifc OPTICROSS HD 60MHZ intravascular ultrasound catheter was inserted over the guide wire into the little shell tribe Proximal LAD. Image recording was initiated and coronary ultrasound images were acquired during slow pullback. After completion of intravascularimaging, the catheter was removed. - Stenting of proximal third of the little shell tribe Proximal LAD was successful. Pre-intervention stenosis was 70%. Final post-intervention stenosis was0%. There was no thrombus. JOESPH flow was 3: Complete and Brisk Flow/Perfusion. There was no dissection. - Stenting of proximal third of the little shell tribe Proximal Circumflex was successful. Pre-intervention stenosis was 40%. Final post-intervention stenosis was0%. There was no thrombus. JOESPH flow was 3: Complete and Brisk Flow/Perfusion. There was no dissection. - Stenting of distal third of the little shell tribe Mid LMCA was successful. Pre-intervention stenosis was 80%. Final post-intervention stenosis was0%. There was no thrombus. JOESPH flow was 3: Complete and Brisk Flow/Perfusion. There was no dissection. EQUIPMENT: Mobile365 (fka InphoMatch)umPayActiv Medical Scot., NC Takeru RX, Coronary Balloon, 4.0, 8 Biotronik, Brandna MILES, Coronary Balloon, 4.5, 8 Biotronik, Brandan MILES, Coronary Balloon, 4.5, 8 Biotronik, Brandan MILES, Coronary Balloon, 3.5, 20 Ross, XIENCE SKYPOINT SEPIDEH RX, Drug Eluting Stent, 3.50, 23 Terumo Medical Scot., NC Takeru RX, Coronary Balloon, 4.0, 8 Koloa Scientific, Emerge Monorail, Coronary Balloon, 2.00, 12 Koloa Scientifc, OPTICROSS HD 60MHZ, IVUS Transducer, 3F, 0 Ross, XIENCE SKYPOINT SEPIDEH RX, Drug Eluting Stent, 2.50, 12 Ross Vascular, NC Trek Avtar RX, Coronary Balloon, 5.0, 8 Koloa Scientific, NC Emerge Monorail, Coronary Balloon, 3.75, 12 Koloa Scientifc, OPTICROSS HD 60MHZ, IVUS Transducer, 3F, 0 Koloa Scientifc, OPTICROSS HD 60MHZ, IVUS Transducer, 3F, 0 Backand MedicalCHARITO Stiffened Dilator, Sheath, 4F, 10 Mendor Scot., [place], Sheath, 7F, 10 Backand Medical CHARITO Stiffened Dilator, Sheath, 4F, 10 Cordis, BRITE TIP, Sheath, 7F, 45 Ross, Versacore MOD J, Peripheral Guidewire, 175 TerWilshire Axon Scot., Runthrough NS Extra Floppy, Coronary Guidewire, .014in, 180 Medtronic, Launcher 7F EBU 4.0, Guiding Catheter, 7F, 100 Asahi INTECC, DANIELA BLUE, Coronary Guidewire, 0.014in, 180 Vascular Solutions, SUPERCROSS 120 Angled tip, Microcatheter, .014 in,130 Terumo, Takeru RX, Coronary Balloon, 2.50, 15 Koloa Scientifc, OPTICROSS HD 60MHZ, IVUS Transducer, 3F, 0 Terumo Medical Scot., TAKERU NC RX BALLOON, Coronary Balloon, 2.5, 21 Ross, XIENCE SKYPOINT SEPIDEH RX, Drug Eluting Stent, 2.50, 33 BoSHireVue Scientific, NC EMERGE Monorail, Coronary Balloon, 3, 20 BoSston Scientific, NC EMERGE Monorail, Coronary Balloon, 3, 20 Biotronik, Brandan MILES, Coronary Balloon, 3.0, 15 Biotronik, Brandan MILES, Coronary Balloon, 3.0, 15 Koloa Scientifc, OPTICROSS HD 60MHZ, IVUS Transducer, 3F, 0 Biotronik, Brandan MILES, Coronary Balloon, 3.5, 20 Biotronik, Brandan MILES, Coronary Balloon, 3.5, 20 ACTIVATED CLOTTING TIME: Time of test Sec 03/31/2025 1:41:18 PM 262 03/31/2025 3:04:49 PM 275 MEDICATIONS: FENTANYL (PF) 50 MCG/ML INJECTION SOLUTION : 50 mcg Intravenous FENTANYL (PF) 50 MCG/ML INJECTION SOLUTION : 50 mcg Intravenous MIDAZOLAM (PF) 1 MG/ML INJECTION SOLUTION : 1 mg Intravenous MIDAZOLAM (PF) 1 MG/ML INJECTION SOLUTION : 1 mg Intravenous LIDOCAINE HCL 20 MG/ML (2 %) INJECTION SOLUTION : 5 ml Subcutaneous HEPARIN (PORCINE) 1,000 UNIT/ML INJECTION SOLUTION : 7500 units Intravenous HEPARIN (PORCINE) 1,000 UNIT/ML INJECTION SOLUTION : 3000 units Intravenous HEPARIN (PORCINE) 1,000 UNIT/ML INJECTION SOLUTION : 2000 units Intravenous HEPARIN (PORCINE) 1,000 UNIT/ML INJECTION SOLUTION : 1000 units Intravenous HEPARIN (PORCINE) 1,000 UNIT/ML INJECTION SOLUTION : 1000 units Intravenous OSM_NITROGLYCERIN 100 MCG/ML INTRA-CORONARY : 150 mcg Intracoronary TICAGRELOR 90 MG TABLET : 180 mg Oral LIDOCAINE 1 %-EPINEPHRINE 1:100,000 INJECTION SOLUTION : 10 ml Subcutaneous ASPIRIN 81 MG CHEWABLE TABLET Oral CASE DURATION: 127 minutes VASCULAR ACCESS: Routine CONTRAST Volume(ml) Omnipaque 350 150 ARTERIAL ACCESS SITE: femoral. ANESTHETIC: Local X-RAY DOSE: Fluro Time: 43.6 min . Kerma Area Product: 44.2 (Gy.cm2) Reference Air Kerma: 776 (mGy) The procedural team has confirmed that the Time-Out has occurred. Anesthetic: Local Estimated Blood loss: <50 cc Specimens: Procedural findings were communicated to: MD Kandi Bomwan MD was personally present during the entire procedure.I was present from the first injection of medication for sedation and continuously for the administration and monitoring of sedation for 134 minutes. The sedation level was moderate. The patients post-sedation status at the end of the procedure was stable. EMERGENCY CONTACTS: Kandi Tapia MD Pager: [phone] This report has been electronically signed by Dr. Kandi Tapia MD,Date: 04/02/2025 5:41:16 PM. This is a Final Report. Preliminary report was initially submitted on04/01/2025 9:53:07 PM by Kandi Tapia MD. Reference Ranges: All Hemodynamics pressure measurements are in mm Hg Oxygen saturation - Arterial: 90-100% - Mixed venous: 60-80% ACT - 170-230 sec for patients on G2b-3a inhibitors - 200-240 sec for patients off G2b-3a inhibitors Finger stick glucose - Adult fastin-140 mg/dl - Non-fastin-200 mg/dl - Critical values: <40 or >500 mg/dl Hernandez Bess MD, MPH CV CARDIAC CATH ORDERA BLES Final Result * (ABNORMAL) POCT Activated Clotting Time (03/31/2025 3:04 PM EDT) Only the most recent of4 resultswithin the time period is included. ACTIVATED CLOT TIME 273(H) 90 - 130 sec [facility] 03/31/2025 3:04 PM EDT 03/31/2025 3:06 PM EDT us Figueroa Brian MD LAB POCT ENTER/EDIT ORDERABLES Final Result [facility] [address] [place] [address] * Lipoprotein (a) (03/31/2025 6:20 AM EDT) Lipoprotein(a) 29 <75 nmol/L [facility] DPT OF LAB MED AND PAT+ Comment: (NOTE) ADDITIONAL INFORMATION Please notice that Lp(a) values are reported in molar units (nmol/L). These units are recommended by professional society guidelines and expert opinion statements. Measured results and risk thresholds are higher than those generated using mass units (mg/dL). Cardiovascular risk increases starting at 75 nmol/L. Lp(a) >=125 nmol/L is considered a risk enhancing factor by the [place] [employer]. This test has been modified from the chest painting leader's instructions. Its performance characteristics were determined by [facility] in a manner consistent with CLIA requirements. This test has not been cleared or approved by the U.S. Food and Drug Administration. Blood 03/31/2025 6:20 AM EDT 03/31/2025 6:49 AM EDT us Sukhdev Mederos PA-C LAB BLOOD ORDERABLES Final Result [facility] DPT OF LAB MED AND PAT+ [address] [place] [address] * PT-INR (03/31/2025 6:20 AM EDT) Only the most recent of2 resultswithin the time period is included. PT 12.6 10.0 - 13.0 sec [facility] INR 1.1 0.9 - 1.1 [facility] Blood 03/31/2025 6:20 AM EDT 03/31/2025 6:50 AM EDT Agusto Rene MD, MPP LAB BLOOD BKR ORDERA BLES Final Result Performing Organization Address [facility] Co de Phone Number [address] [address] * Urinalysis w/reflex Urine Culture (03/30/2025 11:47 AM EDT) COLOR Yellow Yellow [facility] CLARITY Clear Clear [facility] GLUCOSE Negative Negative [facility] BILI Negative Negative [facility] KETONES Negative Negative [facility] SPECIFIC GRAVITY 1.019 1.001 - 1.035 [facility] BLOOD Negative Negative [facility] PH 7.5 5.0 - 9.0 [facility] Protein-UA Negative Negative [facility] UROBILINOGEN Negative Negative [facility] NITRITE Negative Negative [facility] Leukocyte esterase, ur Negative Negative [facility] Urine (Urine) 03/30/2025 11: 47 AM EDT 03/30/2025 12:16 PM EDT Bernadette Corcoran MD, MPH LAB URINE ORDERABLES Final Result Performing Organization Address [facility] Co de Phone Number [address] [address] * MICROALBUMIN/CREATININE, RANDOM URINE (03/30/2025 11:47 AM EDT) MICROALB/CRE RATIO 7.9 <30.0 mg/g Cre [facility] 03/30/2025 11:4 7 AM EDT 03/30/2025 12:19 PM EDT Bernadette Corcoran MD, MPH URINE ORDERABLES Final Resu lt Performing Organization Address [facility] Co de Phone Number [address] [address] * TOTAL PROTEIN CREATININE RATIO, RANDOM URINE (03/30/2025 11:47 AM EDT) URINE TOTAL PROTEIN 9.4 0.0 - 13.5 mg/dL [facility] URINE CREATININE 114 mg/dL [facility] URINE TP CRE RATIO 0.08 <0.15 [facility] Urine (Urine) 03/30/2025 11: 47 AM EDT 03/30/2025 12:19 PM EDT us Bernadette Corcoran MD, MPH LAB URINE ORDERABLES Final Result [address] [address] * Microalbumin, Urine (03/30/2025 11:47 AM EDT) URINE MICROALBUMIN 0.9 0.0 - 2.0 mg/dL [facility] 03/30/2025 11:4 7 AM EDT 03/30/2025 12:19 PM EDT us Bernadette Corcoran MD, MPH LAB URINE ORDERABLES Final Result Performing Organization Address City/[facility]/ZIP Co de Phone Number [address] [address] * Urea nitrogen, random urine (03/30/2025 11:47 AM EDT) URINE UREA NITROGEN 876 mg/dL [facility] Urine (Urine) 03/30/2025 11: 47 AM EDT 03/30/2025 12:19 PM EDT us Bernadette Corcoran MD, MPH LAB URINE ORDERABLES Final Result Performing Organization Address City/[facility]/ZIP Co de Phone Number [address] [address] * Sodium, random urine (03/30/2025 11:47 AM EDT) URINE SODIUM 100 mmol/L [facility] Comment:Results must be inte rpreted based on patient context and with other clinical and laboratory data. Urine (Urine) 03/30/2025 11: 47 AM EDT 03/30/2025 12:19 PM EDT us Bernadette Corcoran MD, MPH LAB URINE ORDERABLES Final Result Performing Organization Address [facility] Co de Phone Number [address] [address] * Potassium, random urine (03/30/2025 11:47 AM EDT) URINE POTASSIUM 68.1 mmol/L [facility] Urine (Urine) 03/30/2025 11: 47 AM EDT 03/30/2025 12:19 PM EDT us Bernadette Corcoran MD, MPH URINE ORDERABLES Final Resu lt Performing Organization Address [facility] Co de Phone Number [address] [address] * Osmolality, Random Urine (03/30/2025 11:47 AM EDT) URINE OSMOLALITY 629 150 - 1,150 mOsm/kg water [facility] Urine (Urine) 03/30/2025 11: 47 AM EDT 03/30/2025 12:19 PM EDT Result Lucio Corcoran MD, MPH LAB URINE ORDERABLES Final Result Performing Organization Address [facility] de Phone Number [address] [address] * (ABNORMAL) Apolipoprotein A1 & B (03/30/2025 11:29 AM EDT) APOLIPOPROTEIN A1 102(L) >=120 mg/dL [facility] DPT OF LAB MED AND PAT+ APOLIPOPROTEIN B 91 mg/dL [facility] DPT OF LAB MED AND PAT+ Comment: (NOTE) REFERENCE VALUE Desirable: <90 Above Desirable: 90-99 Borderline high: 100-119 High: 120-139 Very high: > or = 140 Apolipo B/A1 Ratio 0.9 M [facility] DPT OF LAB MED AND PAT+ Comment: (NOTE) REFERENCE VALUE Lower Risk: <0.7 Average Risk: 0.7-0.9 Higher Risk: >0.9 Blood 03/30/2025 11:2 9 AM EDT 03/30/2025 12:08 PM EDT us Bernadette Corcoran MD, MPH LAB BLOOD BKR ORDERABLES Fi nal Result Performing Organization Address [facility] Co de Phone Number [facility] DPT OF LAB MED AND PAT+ [address] [place] [address] * Cystatin C (03/30/2025 11:29 AM EDT) Pathologist [facility] Cystatin C 0.70 0.61 - 0.95 mg/L [facility] eGFR (Cystatin C) 114 >59 mL/min/1. 73m2 [facility] Comment: Cystatin C-based eGFR may differ substantially from creatinine-based eGFR in patients with abnormal muscle mass or acutely changing renal function. Please interpret together with relevant clinical features. Blood 03/30/2025 11:2 9 AM EDT 03/30/2025 1:08 PM EDT us Bernadette Corcoran MD, MPH LAB BLOOD BKR ORDERABLES Fi nal Result Performing Organization Address City/[facility]/ZIP Co de Phone Number [facility] [address] [place] [address] * CYP 2C19 Genotype (03/30/2025 11:29 AM EDT) Pathologist [facility] [id number] GENOTYPE SQ SEE NOTE 06:04 AM [facility] DPT OF LAB MED AND PAT+ Comment: (NOTE) Test Result Flag Unit RefValue [id number] Genotype, V [id number] Genotype 2/17 [id number] Phenotype Intermediate metabolizer Interpretation SEE NOTE Caution should be exercised when treating with drugs metabolized by [id number] as follows: With prodrugs that are activated by HDA1S53, such as clopidogrel, reduced activation of the drug is expected which may result in decreased efficacy of the drug. With drugs that are inactivated by CZB4R68, such as citalopram, reduced inactivation is expected which may result in higher blood levels of the drug and potential side effects. Method SEE NOTE Genotyping is performed using a PCR-based 5'-nuclease assay. Fluorescently labeled detection probes anneal to the target DNA. PCR is used to amplify the segment of DNA that contains the polymorphism. If the detection probe is an exact match to the target DNA, the 5'-nuclease polymerase degrades the probe, the sheet music salesperson dye is released from the effects of the quencher dye, and a fluorescent signal is detected. Genotypes are assigned based on the allele-specific fluorescent signals that are detected. (TaqMan SNP Genotyping Assays User Guide, LiquidCompass) Disclaimer SEE NOTE Targeted variant analysis was used to test for the presence or absence of specific variants in the FCS2A53 gene:*2 (c.681G>A), *3 (c.636G>A), *4 (c.1A>G), *5 (c.1297C>T), *6 (c.395G>A), *7 (c.819+2T>A), *8 (c.358T>C), *9 (c.431G>A), *10 (c.680C>T), *17 (c.-806C>T), and *35 (c.332-23A>G in the absence of c.681G>A), based on GRCh37 [id number]. If no detectable QNB3L56 variant is found, a presumed *1 allele is assigned. This method will not detect all variants that result in altered ADD3Q70 activity. Therefore, absence of a detectable gene variant does not rule out the possibility that a patient has an altered RVI8U21 metabolism status due to other HJP3U21 variants that cannot be detected with this method. Furthermore, when two or more gene variants are identified, the cis-trans status (whether the variants are on the same or opposite chromosomes) is not always known. In addition to a genetic basis for LWM0D04 altered enzymatic activity, FGH0N94 enzyme activity can be inhibited by a variety of medications or their metabolites. CAUTIONS: Rare variants may be present that could lead to false negative or positive results. If results obtained do not match the clinical findings (phenotype), additional testing should be considered. Samples may contain donor DNA if obtained from patients who have recently received non-leukoreduced blood transfusions or allogeneic hematopoietic stem cell transplantation. Results from samples obtained under these circumstances may not accurately reflect the recipient's genotype. For individuals who have received blood transfusions, the genotype usually reverts to that of the recipient within 6 weeks. For individuals who have received allogeneic hematopoietic stem cell transplantation, a pre-transplant DNA specimen is recommended for testing. IXQ3H10 genetic test results in patients who have undergone liver transplantation may not accurately reflect the patient's IQX7S55 status. This test was developed and its performance characteristics determined by [facility] in a manner consistent with CLIA requirements. This test has not been cleared or approved by the U.S. Food and Drug Administration. Reviewed by Acosat George MD Blood 03/30/2025 11:2 9 AM EDT 03/30/2025 12:08 PM EDT us Bernadette Corcoran MD, MPH LAB BLOOD ORDERABLES Final Result [facility] DPT OF LAB MED AND PAT+ [address] [place] [address] * C-reactive protein, high sensitivity (03/30/2025 11:29 AM EDT) [facility] CRP, HIGH SENSITIVITY 7.0 mg/L [facility] Comment: Reference Range: Quintile 1 Lowest Risk <0.7 mg/L Quintile 2 Low Risk 0.7-1.1 mg/L Quintile 3 Moderate Risk 1.2-1.9 mg/L Quintile 4 High Risk 2.0-3.8 mg/L Quintile 5 Highest Risk >3.8 mg/L When the result is >15.0 mg/L, risk analysis may be confounded by recent or acute inflammatory disease. In these cases, the risk for coronary heart disease can not be provided. A repeat specimen, taken two weeks after resolution of any acute inflammatory condition may allow provision of coronary risk information. Blood 03/30/2025 11:2 9 AM EDT 03/30/2025 1:08 PM EDT us Bernadette Corcoran MD, MPH LAB BLOOD BKR ORDERABLES Fi nal Result Performing Organization Address City/[facility]/ZIP Co de Phone Number [address] [address] * TSH with reflex (03/30/2025 11:29 AM EDT) SCREENING PANEL: TSH 2.77 0.40 - 5.00 uIU/mL [facility] Blood 03/30/2025 11:2 9 AM EDT 03/30/2025 12:12 PM EDT us Bernadette Corcoran MD, MPH LAB BLOOD BKR ORDERABLES Fi nal Result Performing Organization Address [facility] Co de Phone Number [address] [address] * (ABNORMAL) Hemoglobin A1c (03/30/2025 6:45 AM EDT) HEMOGLOBIN A1C 6.2(H) 4.3 - 5.6 % [facility] Comment:HbA1c levels 5.7-6.4 % represent pre-diabetes, indicating impaired glucose control and an increased risk of developing diabetes compared with lower HbA1c levels. The diagnostic HbA1c level for diabetes is 6.5% or greater. CALC MEAN BLD GLUC 131 mg/dL [facility] Comment:There is no establis [facility] normal range for the Calculated Mean Blood Glucose (CMBG), however a HbA1c of 5.6% (upper limit of normal) represents a CMBG of 114 mg/dL. The diagnostic hemoglobin A1c level for diabetes is greater than or equal to 6.5% which represents a CMBG greater than or equal to 140 mg/dL. Blood 03/30/2025 6:45 AM EDT 03/30/2025 7:08 AM EDT Sukhdev Mederos PA-C LAB BLOOD BKR ORDERAB LES Final Result Performing Organization Address City/[facility] Co de Phone Number [address] [address] * (ABNORMAL) Lipid panel (03/30/2025 6:45 AM EDT) HDL 29(L) 35 - 100 mg/dL [facility] CHOLESTEROL 146 <200 mg/dL [facility] TRIGLYCERIDES 84 40 - 150 mg/dL [facility] LDL 100 50 - 129 mg/dL [facility] CARDIAC RISK RATIO 5.0 0.0 - 5.0 [facility] NON-HDL CHOLESTEROL 117 mg/dL [facility] Comment:Guidelines suggest a non-HDL cholesterol goal 30 mg/dL higher than the patient-specific LDL goal. Blood 03/30/2025 6:45 AM EDT 03/30/2025 7:08 AM EDT Sukdhev Mederos PA-C LAB BLOOD BKR ORDERAB LES Final Result Performing Organization Address [facility] Co de Phone Number [address] [address] * (ABNORMAL) CBC and differential (03/29/2025 10:04 PM EDT) Only the most recent of2 resultswithin the time period is included. Pathologist [facility] WBC 10.18 4.00 - 11.00 K/uL [facility] RBC 4.53 4.50 - 5.90 M/uL [facility] HGB 13.4(L) 13.5 - 17.5 g/dL [facility] HCT 39.0(L) 41.0 - 53.0 % [facility] PLT 337 150 - 450 K/uL [facility] MCV 86.1 80.0 - 100.0 fL [facility] MCH 29.6 27.0 - 31.0 pg [facility] MCHC 34.4 32.0 - 36.0 g/dL [facility] RDW 12.6 11.5 - 14.5 % [facility] MPV 9.0 8.4 - 12.0 fL [facility] NRBC 0.00 0.00 /100 WBCs [facility] ABSOLUTE NRBC 0.00 0.00 K/uL [facility] DIFF METHOD Auto [facility] NEUTS 73.5 48.0 - 76.0 % [facility] LYMPHS 13.5(L) 18.0 - 41.0 % [facility] MONOS 7.5 4.0 - 11.0 % [facility] EOS 4.7 0.0 - 5.0 % [facility] BASOS 0.5 0.0 - 1.5 % [facility] % IMMATURE GRANS 0.3 0.0 - 0.9 % [facility] ABSOLUTE NEUTS 7.49 1.92 - 7.60 K/uL [facility] ABSOLUTE LYMPHS 1.37 0.72 - 4.10 K/uL [facility] ABSOLUTE MONOS 0.76 0.16 - 1.10 K/uL [facility] ABSOLUTE EOS 0.48 0.00 - 0.50 K/uL [facility] ABSOLUTE BASOS 0.05 0.00 - 0.15 K/uL [facility] ABS IMMATURE GRANS 0.03 0.00 - 0.09 K/uL [facility] Blood 03/29/2025 10:0 4 PM EDT 03/29/2025 10:28 PM EDT us Sukhdev Mederos PA-C LAB BLOOD BKR ORDERAB LES Final Result [address] [address] * Troponin (03/29/2025 9:53 PM EDT) Only the most recent of2 resultswithin the time period is included. Troponin-T, HS Gen5 <6 0 - 14 ng/L [facility] Blood 03/29/2025 9:53 PM EDT 03/29/2025 10:28 PM EDT us Esme Dumont MD, MPH LAB BLOOD BKR ORDERABLE S Final Result [address] [address] * ABO and Rh (03/29/2025 9:23 PM EDT) Expiration Date of Sample 04/01/2025 11:59 PM [facility] ABO A 03/29/2025 11:34 PM EDT [facility] Rh Positive 03/29/2025 11:34 PM EDT [facility] Resulting Agency [facility] 03/29/2025 9:23 PM EDT 03/29/2025 9:47 PM EDT Blood Bank LAB BLOOD BANK TEST ORDERABLES F inal Result Performing Organization Address City/[facility]/ZIP Co de Phone Number [address] [address] * PTT (03/29/2025 9:15 PM EDT) APTT 28.5 24.0 - 37.5 sec [facility] Comment:Check MAR for the ta rget range that is ordered for your patient. Blood 03/29/2025 9:15 PM EDT 03/29/2025 9:28 PM EDT Sukhdev Mederos PA-C LAB BLOOD BKR ORDERAB LES Final Result Performing Organization Address [facility] Co de Phone Number [address] [address] * ECG 12-LEAD (03/29/2025 8:12 PM EDT) Systolic Blood Pressure [facility] Diastolic Blood Pressure [facility] Ventricular Rate EKG/MIN 109 BPM [facility] Atrial Rate 109 BPM [facility] IL Interval 124 ms [facility] QRS Duration 80 ms [facility] QT Interval 328 ms [facility] QTC Interval 441 ms [facility] P [place] 74 degrees [facility] R Wave [place] 49 degrees [facility] T Wave [place] 45 degrees [facility] 03/29/2025 8:12 PM EDT 03/30/2025 11:08 AM EDT Narrative [facility] - 03/30/2025 11:09 AM EDT LOC: ED DX: CAD REF: SHOKOOH, HAMID SINUS TACHYCARDIA NONSPECIFIC ST SEGMENT AND T WAVE ABNORMALITIES NO PREVIOUS ECGS AVAILABLE SUGGEST CLINICAL CORRELATION Protocol [facility] Emergency ECG ORDERABLES Final Res ult [facility] * Outside Echo Report Only (03/29/2025 10:56 AM EDT) Other Narrative SYSTEMGENERATED, DOCUMENTATION - 03/29/2025 10:56 AM EDT Outside Images for comparison purposes only. Provider [facility] Admitting CV ECHO ORDERABLES Final Result * Outside Cath Study (03/29/2025 10:55 AM EDT) Other Narrative SYSTEMGENERATED, DOCUMENTATION - 03/29/2025 10:55 AM EDT Outside Images for comparison purposes only. Provider [facility] Admitting CV CARDIAC CATH ORDERABLE S Final Result from Last 3 Months [facility] E[facility] EPO [facility] POS EPO [facility] POS EPO [facility] POS EPO Advance Directives For more information, please contact: [phone] (9AM - 5PM [facility], Thursday-Thursday) Documents on File Type Date Recorded Patient Attending Radiologist Expl anation Healthcare Proxy 03/30/2025 7:09 PM * Full Code (Latest Code Status on File) Date Activated Date Inactivated Comments 03/30/2025 11:13 AM Question Answer Comments Code Status Confirmed With: Patient Care Teams Home Health Travel Ot Relationship Specialty Start Date End Date Herman Neal MD PCP - General Family Medicine 07/25/24 Additional Source Comments The information contained in this document represents components of the legal health record. It is not the complete legal health record.[facility]
--- OUTSIDE RECORDS SUMMARY | 2025-05-18 07:38 | XMS_ITS | Data Portability ---
Author Organization [facility], OFFICE Address [address] [place] [phone] Assessment Encounter Date Assessment Date Assessment LastModified by Organization Details LastModified Time 04/17/2023 04/17/2023 Mr. Mota and I discussed the issues related to his treatment. 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 Conservative therapy in the form of NSAIDs and flexibility and muscle strengthening exercises have been insufficiently helpful. Complex total hip arthroplasty is therefore appropriately indicated on both sides, left first. We discussed the issues related to the surgeical reconstruction in a lot of detail today including the preoperative process, the operative techniques and choices of surgical exposures, computer-assisted techniques, the types of implants, and the perioperative risks. In addition, we discussed the typical course following surgery and reasonable expectations for recovery, outcome, activity level, and long-term followup. He is interested in proceeding, and we will begin to make arrangements. sbm Not available 04/17/2023 12:54:41 09/14/2023 09/14/2023 Adeel has been recovering well following complex LTHR. We are going to progress to a single crutch for a few days and then to a cane when he feels ready. I'd like him to use some for of external support for another three weeks and then he can progress as tolerated. This visit was conducted as a real-time telehealth interactive video visit. He was identified and consented to this telehealth visit. I spent a total of 15 minutes during this encounter. Greater than 50% of the time was devoted to counseling and coordinating care. This included reviewing records and pertinent studies, discussing diagnostic evaluation and workup, planning therapeutic interventions, and formulating the future disposition of care. sbm Not available 09/14/2023 17:25:29 05/02/2024 05/02/2024 We discussed the issues related to his treatment. Mr. Mota has radiographic evidence of dramatic end stage arthrosis of the right hip with marked restriction of motion. He has bone on bone wear, complete severe joint space narrowing, subchondral sclerosis and periarticular osteophytes. He has a functional disability from the arthritis. Conservative therapy in the form of NSAIDs and flexibility and muscle strengthening exercises and physical therapy have been insufficiently helpful. Total hip arthroplasty is therefore appropriately indicated. We discussed the issues related to total hip arthroplasty in a lot of detail again today including the preoperative process, the operative techniques, less invasive techniques, computer-assisted techniques, the types of implants, and the perioperative risks. In addition, we discussed the typical course following surgery and reasonable expectations for recovery, outcome, activity level, and long-term followup. He is interested in proceeding, and we will begin to make arrangements. sbm Not available 07/11/2024 08:36:16 09/11/2024 09/11/2024 Adeel has been recovering well following elective complex RTHR. We are going to progress to 75%WB with a single crutch now and to wbat in 3 weeks. This visit was conducted as a real-time telehealth interactive video visit. He was identified and consented to this telehealth visit. I spent a total of 25 minutes during this encounter. Greater than 50% of the time was devoted to counseling and coordinating care. This included reviewing records and pertinent studies, discussing diagnostic evaluation and workup, planning therapeutic interventions, and formulating the future disposition of care. sbm Not available 09/11/2024 10:01:36 Plan of Treatment Reminders Order Date Submit Date Provider Last Modified By Organization Details Last Modified Time Details Appointments None record ed. Lab None record ed. Referral None record ed. Procedures None record ed. Surgeries None record ed. Imaging None record ed. Medication Orders None record ed. Patient TargetsNo targets recorded. Patient InstructionsNo instructions recorded. Reason for Referral None Reported. Problems No Known Problems Procedures Surgical History Date Name Laterality Status Provider Name and Address Organization Details Recorded Time total replacement of right hip joint completed Pearl Rich MA - [facility] 09/11/2024 08:49:22 Hernia Repair completed Se Luevano MD [address], [place], [address], [place] - Comp-Assistd and [facility]cn[facility]ctive [facility] 04/17/2023 12:34:45 total replacement of left hip joint completed Se Luevano MD [address], [place], [address], [place] - Comp-Assistd and [facility] 09/11/2024 09:59:41 Imaging Results None recorded. Procedure Notes None recorded. Medical Equipment None Reported. Allergies Allergen ID Allergen Name Allergen Category Reaction Reaction Severity Criticality Documentation Date Start Date Code Code System Note Provider Name and Address Organization Details Recorded Time 87603 aspirin medicatio n Not available Not available Not available 04/17/2023 1191 RxNorm Pearl potts, [place] - [facility] 11:26:35 Medications Name Sig Start Date Stop Date Status Note LastModified by Organization Details LastModified Time amoxicillin 500 mg capsule TAKE 4 CAPSULES BY MOUTH 1 HOUR BEFORE DENTAL WORK active Not Available Not Available No t Available Celebrex 200 mg capsule Pre op: Take 2 tablets po the night before surgery and 1 tablet po the morning of surgery. Post op: One po qd 2023 active Not Available Not Available Not Avai lable omeprazole 20 mg capsule,delay ed release active Not Available Not Available N ot Available mupirocin 2 % topical ointment active Not Available Not Available Not Available oxycodone 5 mg tablet TAKE 1 TO 2 TABLETS BY MOUTH EVERY 4 TO 6 HOURS NEEDED FOR PAIN active Not Available Not Available No t Available Eliquis 2.5 mg tablet TAKE 1 TABLET BY MOUTH TWICE DAILY AFTER SURGERY active Not Available Not Available No t Available naloxone 4 mg/actuation nasal spray active Not Available Not Available Not Available Vitals Date Recorded Body height Body mass index (BMI) Body weight Provider Name and Address Organization Details Last Updated DateTime 09/11/2024 167.64 cm 23.4 kg/m2 87558.89 g Pearl Hilario MA - [facility] 09/11/2024 08:49:52 Date Recorded Body height Body mass index (BMI) Body weight Body weight Provider Name and Address Organization Details Last Updated DateTime 09/14/2023 167.64 cm 232.4 kg/m2 366570.01 g 50668.93 g Pearl Rich MA - [facility]Ass[facility] 05/02/2024 11:59:57 Date Recorded Body height Body mass index (BMI) Body weight Systolic And Diastolic Provider Name and Address Organization Details Last Updated DateTime 04/17/2023 167.64 cm 21.8 kg/m2 75291.97 g 120/72 mm[Hg] Pearl Rich MA - [facility]Ass[facility]d [facility] 04/17/2023 11:24:02 Date Recorded Body height Body mass index (BMI) Body weight Systolic And Diastolic Provider Name and Address Organization Details Last Updated DateTime 05/02/2024 167.64 cm 22.9 kg/m2 94962.12 g 128/78 mm[Hg] Pearl Rich MA - [facility]Assistd [facility] 05/02/2024 11:59:40 Social History Question Answer Notes LastModified by Organizat ion Details LastModified Time Tobacco Smoking Status Never Smoker Pearl Rich null, [place] - [facility] 04/17/2023 11:26:57 Do You Have An Advance Directive? No [email or web address] Information not available 04/17/2023 Do You Have A Medical Power Of Front Window Cashier? No [email or web address] Information not available 04/17/2023 What Was The Date Of Your Most Recent Tobacco Screening? 05/02/2024 [email or web address] Information not available 05/02/2024 Has Tobacco Cessation Counseling Been Provided? No [email or web address] Information not available 04/17/2023 Sex: Unknown Functional Status Question Answer Note LastModified by Organization D etails LastModified Time Do you or have you ever used any other forms of tobacco or nicotine? No [email or web address] Information not available 04/17/2023 Are you able to care for yourself independently? Yes [email or web address] Information not available 04/17/2023 Mental Status None recorded. Family History Relationship Description Onset Age of this Age Resolved Age Notes LastModified by Organization Details LastModified Time Father Coronary arterioscler osis [email or web address] Not available 2022 12:32:45 Mother Coronary arterioscler osis sbm Not available 2022 12:32:45 Mother Diabetes mellitus sbm Not available 2022 12:33:03 Medical History Condition Response Hernia Y Arthritis Y Past Encounters Encounter ID Performer Location Encounter Start Date Encounter Closed Date Diagnosis/Indication Diagnosis SNOMED-CT Code Diagnosis ICD10 Code Diagnosis IMO Codes Diagnosis Note [id number] Se Luevano MD OFFICE 125 [facility] [place], [place] [address] [place] [phone] 04/17/2023 11:22:50 04/19/2023 14:09:54 [id number] Se Luevano MD [facility] [address] [facility] [place] [address] 09/14/2023 09:03:53 09/17/2023 08:19:38 [id number] Se Luevano MD OFFICE 125 [facility] [place], [place] [address] [place] [address] 05/02/2024 11:58:36 07/04/2024 17:36:46 [id number] Se Luevano MD [facility] [address] [facility] [place] [address] 09/11/2024 08:48:20 09/14/2024 16:06:48 Health Concerns Section Related Observation LastModified by Organization Detai ls LastModified Time None Recorded Concern Status LastModified by Organization Details LastModified Time None Recorded Advance Directives Directive N: Payers Insurance Date Sequence Insurance Name Policy Number Policy Reed Covered Member ID Reed Member ID Guarantor Name 09/11/2024 1 [facility] Lookery [facility] [id number] Adeel Mota [id number] Adeel Mota 09/11/2024 1 [facility] Adeel Mota [id number] Adeel Mota 06/30/2023 1 *SELF PAY* An gel Mota 09/14/2024 1 [facility] ([facility] Adeel Villela [id number] Adeel Mota Notes Date Note Type Note Provider Name and Address Organization Details Recorded Time 3 text/html Hip(s) AthenaReported by PatientHPIFor location, patient reportsbilateral. For severity, patient reportssevere. For alleviating factors, patient reportsrest. For aggravating factors, patient reportsstanding,bending/s quatting,weightbearing,ex ercise, andgoing from sit to stand. For associated symptoms, patient reportsno weakness,no numbness,no tingling,no swelling,no redness,no warmth,no ecchymosis,no catching/locking,no popping/clicking,no buckling,no grinding,no instability,no radiation down leg,no drainage,no fever,no chills,no weight loss, andno change in bowel/bladder habits. For prior imaging, patient reportsx ray. For previous pt, patient reportsdid not help.ROS as noted in the [facility] Se Luevano MD [address], [place], [address], [place] - Comp[facility]Assistd and [facility] 04/17/2023 12:54:44 4 text/html Hip(s) AthenaReported by PatientHPIFor location, patient reportsbilateral,groin,th igh, andbuttocks. For severity, patient reportssevere(severe right, slight left). For alleviating factors, patient reportsrest. For aggravating factors, patient reportsstanding,bending/s quatting,weightbearing,ex ercise, andgoing from sit to stand(left is feeling well now. doesn't feel that he needs crutches anymore). For associated symptoms, patient reportsno weakness,no numbness,no tingling,no swelling,no redness,no warmth,no ecchymosis,no catching/locking,no popping/clicking,no buckling,no grinding,no instability,no radiation down leg,no drainage,no fever,no chills,no weight loss, andno change in bowel/bladder habits. For prior imaging, patient reportsx rayandct scan. For previous pt, patient reportsdid not help(helped postop on the left).ROS as noted in the [facility] Se Luevano MD [address], [place], [address], [place] - Comp-Assistd and Rcnstrctive Surgry 09/14/2023 17:25:32 4 text/html Hip(s) AthenaReported by PatientHPIFor location, patient reportsright,groin,thigh, andbuttocks. For severity, patient reportssevere. For duration, patient reportsseveral years. For alleviating factors, patient reportsrest. For aggravating factors, patient reportsstanding,walking,b ending/squatting,weightbe aring,exercise, andgoing from sit to stand. For associated symptoms, patient reportsno weakness,no numbness,no tingling,no swelling,no redness,no warmth,no ecchymosis,no catching/locking,no popping/clicking,no buckling,no grinding,no instability,no radiation down leg,no drainage,no fever,no chills,no weight loss, andno change in bowel/bladder habits. For prior imaging, patient reportsx rayandct scan. For previous pt, patient reportsdid not help.ROS as noted in the [facility] Se Luevano MD [address], [place], [address], [place] - Comp-Assistd and Rcnstrctive Surgry 07/11/2024 08:36:19 text/html Hip(s) AthenaReported by PatientHPIFor location, patient reportsrightandgroin. For severity, patient reportsslight. For alleviating factors, patient reportsrestandstretching. For aggravating factors, patient reportsweightbearing. For associated symptoms, patient reportsno weakness,no numbness,no tingling,no swelling,no redness,no warmth,no ecchymosis,no catching/locking,no popping/clicking,no buckling,no grinding,no instability,no radiation down leg,no drainage,no fever,no chills,no weight loss, andno change in bowel/bladder habits. For prior imaging, patient reportsx rayandct scan. For previous pt, patient reportshelped significantly.ROS as noted in the [facility] Se Luevano MD [address], [place], [address], [place] - Comp-Assistd and [facility]cnstrctive Surgry 09/11/2024 10:01:39
--- OUTSIDE RECORDS SUMMARY | 2025-05-18 07:38 | XMS_ITS | Encounter Summary ---
Author Organization [facility] Address [address] [place] [address] Phone Care Team Providers Care Sisal Operator Name Role Phone Herman Neal MD Primary Care Provider Encounter Details Date Type Department Care Team (Late st Contact Info) Description 03/31/2025 Procedure Pass [facility] Cardiac [facility] [address] [facility], [address], [address] [place] [address] Social History Tobacco Use Types Packs/Day Years [...] Risk Indicated 03/31/2025 5:00 AM EDT Krystal uJne RN * [place] Suicide Severity Rating Scale (Screener/Recent Self-Report) Question [...] on filedocumented in this encounter Care Teams Sisal Operator Relationship Specialty Start Date End Date Herman Neal MD PCP - General Family Medicine 07/25/24 documented as of this encounter Additional Source Comments The information contained in this document represents components of the legal health record. It is not the complete legal health record.[facility]
[2025-05-18 11:45] LABS: Alanine Aminotransferase 160 U/L (0-40); Albumin Level 4.8 g/dL (3.5-5.0); Alkaline Phosphatase 111 U/L (39-117); Anion Gap 10 (12-20); Aspartate Amino Transferase 80 U/L (5-37); Blood Urea Nitrogen 19 mg/dL (9-16); Calcium 9.5 mg/dL (8.4-10.2); Carbon Dioxide 29 mmol/L (22-29); Chloride 106 mmol/L (96-108); Cholesterol 107 mg/dL (<200); Estimated Glomerular Filt Rate > 60; HDL Cholesterol 34 mg/dL (>40); Potassium 3.9 mmol/L (3.3-5.1); Sodium 141 mmol/L (135-145); Total Protein 7.7 g/dL (6.5-8.0); Triglycerides 86 mg/dL (<150)
== END 2025-05-18 07:35 | disposition home or self-care (01) ==
LOC: HO.WFDLDS 07:34
PROVIDERS: Visit Provider Family Medicine
DX: Z00.00 Encounter for general adult medical examination without abnormal findings (principal); Z13.6 Encounter for screening for cardiovascular disorders
CPT/HCPCS: 36415; 80053; 80061

== ENCOUNTER 2025-05-19 16:21 | Outpatient (AMB) | payer OTHER, SELFPAY ==
--- OUTSIDE RECORDS SUMMARY | 2025-05-19 16:24 | XMS_ITS | Encounter Summary ---
Author Organization [facility] Address [address] [place] [address] Phone Care Team Providers Care Certified Vehicle Fire Investigator Name Role Phone Herman Neal MD Primary Care Provider Encounter Details Date Type Department Care Team (Late st Contact Info) Description 03/29/2025 Procedure Pass [facility] Cardiology Referral Images [address] [place] [address] Social History Tobacco Use Types Packs/Day Years [...] 5:00 AM EDT Krystal June RN * [place] Suicide Severity Rating Scale (Screener/Recent Self-Report) Question [...] on filedocumented in this encounter Care Teams Certified Vehicle Fire Investigator Relationship Specialty Start Date End Date Herman Neal MD PCP - General Family Medicine 07/25/24 documented as of this encounter Additional Source Comments The information contained in this document represents components of the legal health record. It is not the complete legal health record.[facility]
--- OUTSIDE RECORDS SUMMARY | 2025-05-19 16:24 | XMS_ITS | Clinical Summary ---
Author Organization [facility] Address [address] [place] [address] Phone Care Team Providers Care Hose Inspector Name Role Phone Herman Neal MD Primary [...] EDT - 03/31/2025 5:05 PM EDT Surgery [facility] Cardiac Chemist Steroids [address], [address] 9, [address] [place] [address] Kandi Tapia MD Percutaneous Coronary Intervention (PCI) LM 03/31/2025 Procedure Pass [facility] Cardiac Chemist Steroids [address], [address], [address] [place] [address] 03/30/2025 Telephone [facility] Allergy [place] [address] [facility], 4th Floor, [address] [place] [address] Agusto Seymour MD, PhD 03/29/2025 8:27 PM EDT - 04/01/2025 5:00 PM EDT Hospital Encounter [facility] Reeves [address] [place] [address] Esme Dumont MD, MPH Rome Moore MD Shokoohi, Hamid, MD, MPH Bernadette Corcoran MD, MPH Agusto Rene MD, MPP Figueroa Brian MD Discharge Disposition: Home or Self Care 03/29/2025 11:05 AM EDT Documentation [facility] Cardiology Referral Images [address] [place] [address] [facility] Admitting, Provider 03/29/2025 11:00 AM EDT Documentation [facility] Cardiology Referral Images [address] [facility] [address] [place] [address] [facility] Admitting, Provider 03/29/2025 Documentation [facility] [address] [facility], 5th Floor, [address] [place] [address] Sona Ignacio, PUTTYING AND CALKING SUPERVISOR 03/29/2025 Procedure Pass [facility] Cardiology Referral Images [address] [place] [address] 03/29/2025 Transcribe Orders [facility] [address] [facility], 5th Floor, [address] [place] [address] Unknown, Unknown, Diagnosis unknown (Primary Dx) from [...] this topic Medical Devices Implanted Type Area Outpatient Case Manager Device Identifier Shelf Expiration Date Model / Serial / Lot Stent Xience Skypoint [id number] Rapid Exchange Everolimus Eluting Coronary - [id number] Implanted:Qty: 1 on 03/31/2025 by Hernandez Bess MD, MPH at [facility] Stent [employer] [id number] 3 / / Stent Xience Skypoint [id number] Rapid-Exchange Everolimus Eluting Coronary - [id number] Implanted:Qty: 1 on 03/31/2025 by Hernandez Bess MD, MPH at [facility] Stent N/A: Coronary [employer] 01/16/2028 [id number] 3 / / [id number] Stent Xience Skypoint [id number] Rapid Exchange Everolimus Eluting Coronary - [id number] Implanted:Qty: 1 on 03/31/2025 by Hernandez Bess MD, MPH at [facility] Stent N/A: Coronary [employer] 06/08/2027 [id number] 2 / / [id number] Procedures Procedure Name Priority Date/Time Associated Diagnosis [...] included. WBC 10.87 4.00 - 11.00 K/uL [facility] RBC 4.74 4.50 - 5.90 M/uL [facility] HGB 13.7 13.5 - 17.5 g/dL [facility] HCT 40.3(L) 41.0 - 53.0 % [facility] PLT 312 150 - 450 K/uL [facility] MCV 85.0 80.0 - 100.0 fL [facility] MCH 28.9 27.0 - 31.0 pg [facility] MCHC 34.0 32.0 - 36.0 g/dL [facility] RDW 12.5 11.5 - 14.5 % [facility] MPV 9.1 8.4 - 12.0 fL [facility] NRBC 0.00 0.00 /100 WBCs [facility] ABSOLUTE NRBC 0.00 0.00 K/uL [facility] Blood 04/01/2025 5:45 AM EDT 04/01/2025 6:16 AM EDT us Bernadette Corcoran MD, MPH LAB BLOOD BKR ORDERABLES Fi nal Result [address] [address] * Type and Screen (ABO,Rh,Antibody Screen) (04/01/2025 5:45 AM EDT) Only the most recent of2 resultswithin the time period is included. Expiration Date of Sample 04/04/2025 11:59 PM [facility] Antibody Screen Negative 04/01/2025 6:41 AM EDT [facility] Resulting Agency [facility] ABO A 04/01/2025 6:25 AM EDT [facility] Rh Positive 04/01/2025 6:25 AM EDT [facility] Blood 04/01/2025 5:45 AM EDT 04/01/2025 5:57 AM EDT us Figueroa Brian MD LAB BLOOD BANK TEST ORDERABLES Final Result Performing Organization Address City/[facility] Co de Phone Number [address] [address] * Magnesium (04/01/2025 5:45 AM EDT) Only the most recent of2 resultswithin the time period is included. MAGNESIUM 2.0 1.7 - 2.4 mg/dL [facility] Blood 04/01/2025 5:45 AM EDT 04/01/2025 6:16 AM EDT us Agusto Rene MD, MPP LAB BLOOD BKR ORDERA BLES Final Result Performing Organization Address [facility] de Phone Number [address] [address] * (ABNORMAL) Basic metabolic panel (04/01/2025 5:45 AM EDT) Only the most recent of5 resultswithin the time period is included. SODIUM 136 135 - 145 mmol/L [facility] POTASSIUM 4.1 3.4 - 5.0 mmol/L [facility] CHLORIDE 101 98 - 108 mmol/L [facility] CO2 21(L) 23 - 32 mmol/L [facility] BUN 17 8 - 25 mg/dL [facility] CREATININE 0.99 0.60 - 1.30 mg/dL [facility] GLUCOSE 87 70 - 110 mg/dL [facility] CALCIUM 9.4 8.5 - 10.5 mg/dL [facility] EGFR 90 >59 mL/min/1.7 3m2 [facility] Comment:Estimated glomerular filtration rate calculated using the CKD-EPI refit equation. ANION GAP 14 3 - 17 mmol/L [facility] Blood 04/01/2025 5:45 AM EDT 04/01/2025 6:16 AM EDT us Bernadette Corcoran MD, MPH LAB BLOOD BKR ORDERABLES Fi nal Result Performing Organization Address City/[facility] Co de Phone Number [address] [address] * (ABNORMAL) LFTs (hepatic panel) (03/31/2025 6:54 PM EDT) ALBUMIN 4.2 3.3 - 5.0 g/dL [facility] TOTAL BILIRUBIN 1.4(H) 0.0 - 1.0 mg/dL [facility] DIRECT BILIRUBIN 0.4(H) 0.0 - 0.3 mg/dL [facility] ALKALINE PHOSPHATASE 139(H) 45 - 115 U/L [facility] AST 32 10 - 40 U/L [facility] ALT 49 10 - 55 U/L [facility] TOTAL PROTEIN 7.3 6.0 - 8.3 g/dL [facility] GLOBULIN 3.1 1.9 - 4.1 g/dL [facility] Blood 03/31/2025 6:54 PM EDT 03/31/2025 7:19 PM EDT us Figueroa Brian MD LAB BLOOD BKR ORDERABLES Final Result Performing Organization Address [facility] Co de Phone Number [address] [address] * Lactate (03/31/2025 6:54 PM EDT) LACTIC ACID (MMOL/L) 1.4 0.5 - 2.0 mmol/L [facility] Blood 03/31/2025 6:54 PM EDT 03/31/2025 7:19 PM EDT us Figueroa Brian MD LAB BLOOD BKR ORDERABLES Final Result Performing Organization Address [facility] Co de Phone Number [address] [address] * FEMORAL ARTERIOGRAM (03/31/2025 3:27 PM EDT) Anatomical Region Laterality Modality X-Ray Angiograph y 03/31/2025 3:27 PM EDT Narrative 04/02/2025 5:41 PM EDT Cardiac Catheterization Report 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 Follow up with primary ambulance driver ANTIPLATELET & ANTICOAGULATION RECOMMENDATIONS: Aspirin: 81 mg [...] and with the input of the referring ambulance driver. Based on these considerations, we decided to perform the interventional procedure. CARDIAC INTERVENTIONAL TECHNIQUE: - A Calcula Technologiestronic 7F Launcher 7F EBU 4.0 guiding catheter [...] by contrast injection. - The lesion of iliamna Mid LMCA was crossed with a Sportistic Takeru RX balloon catheter of 2.50 mm and 15 mm length and pre-dilatation was performed. Maximal inflation pressure was 16 CARO. - A 3F Yottaa OPTICROSS HD 60MHZ intravascular ultrasound catheter was inserted over the guide wire into the iliamna Proximal LAD. Image recording was initiated and coronary ultrasound images were acquired during slow pullback. After completion of intravascular imaging, the catheter was removed. - A Asahi INTECC 0.014in DANIELA BLUE coronary wire was manipulated into the distal first diagonal branch. Its position was confirmed by contrast injection. - The lesion of iliamna Proximal LAD was crossed with a Biotronik Brandan MILES balloon catheter of 3.0 mm and 15 mm length and pre-dilatation was performed. Maximal inflation pressure was 18 CARO. - The lesion of iliamna Proximal LAD was crossed with a Biotronik [...] stent was placed across the lesion of iliamna Proximal LAD. - The lesion of iliamna Proximal LAD was crossed with a Biotronik [...] stent was placed across the lesion of iliamna Mid LMCA. - The lesion of iliamna Mid LMCA was crossed with a Biotronik Brandan MILES balloon catheter of 3.5 mm and 20 mm length and post-dilatation was performed. Maximal inflation pressure was 14 CARO. - The lesion of iliamna Mid LMCA was crossed with a [employer]. [place] Takeru RX balloon catheter of 4.0 mm and 8 mm length and post-dilatation was performed. Maximal inflation pressure was 18 CARO. - The lesion of iliamna Mid LMCA was crossed with a Biotronik Brandan MILES balloon catheter of 4.5 mm and 8 mm length and post-dilatation was performed. Maximal inflation pressure was 18 CARO. - A AsaStrohl Medical INTECC 0.014in DANIELA BLUE coronary wire was manipulated into the distal circumflex coronary artery. Its position was confirmed by contrast injection. - The lesion of iliamna Proximal Circumflex was crossed with a Attachments.me Scientific Emerge Monorail balloon catheter of 2.00 mm and 12 mm length and pre-dilatation was performed. Maximal inflation pressure was 14 CARO. - The lesion of iliamna Proximal Circumflex was crossed with a [employer]4 Imaging. TAKERU NC RX BALLOON balloon catheter of 2.5 mm and 21 mm length and pre-dilatation was performed. Maximal inflation pressure was 18 CARO. - A 3F [place] [employer] OPTICROSS HD 60MHZ intravascular ultrasound catheter was inserted over the guide wire into the iliamna Proximal Circumflex. Image recording was initiated and coronary ultrasound images were acquired during slow pullback. After completion of intravascular imaging, the catheter was removed. - A stent delivery system with [employer] XIENCE SKYPOINT SEPIDEH RX stent of 2.50 mm and 12 mm long was inserted over the wire and under fluoroscopic guidance, the stent was placed across the lesion of iliamna Proximal Circumflex. - The lesion of iliamna Proximal LAD was crossed with [employer] [place] Emerge Monorail balloon catheter of 3.75 mm and 12 mm length and post-dilatation was performed. Maximal inflation pressure was 10 CARO. - A 3F [place] Scientifc OPTICROSS HD 60MHZ intravascular ultrasound catheter was inserted over the guide wire into the iliamna Proximal Circumflex. Image recording was initiated and coronary ultrasound images were acquired during slow pullback. After completion of intravascular imaging, the catheter was removed. - A 3F [place] Scientifc OPTICROSS HD 60MHZ intravascular ultrasound catheter was inserted over the guide wire into the iliamna Proximal LAD. Image recording was initiated and coronary ultrasound images were acquired during slow pullback. After completion of intravascular imaging, the catheter was removed. - Stenting of proximal third of the iliamna Proximal LAD was successful. Pre-intervention stenosis was 70%. Final post-intervention stenosis was 0%. There was no thrombus. JOESPH flow was 3: Complete and Brisk Flow/Perfusion. There was no dissection. - Stenting of proximal third of the iliamna Proximal Circumflex was successful. Pre-intervention stenosis was 40%. Final post-intervention stenosis was 0%. There was no thrombus. JOESPH flow was 3: Complete and Brisk Flow/Perfusion. There was no dissection. - Stenting of distal third of the iliamna Mid LMCA was successful. Pre-intervention stenosis was 80%. Final post-intervention stenosis was 0%. There was no thrombus. JOESPH flow was 3: Complete and Brisk Flow/Perfusion. There was no dissection. EQUIPMENT: C[employer]., [place] Takeru RX, Coronary Balloon, 4.0, 8 Biotronik, Brandan MILES, Coronary Balloon, 4.5, 8 Biotronik, Brandan MILES, Coronary Balloon, 4.5, 8 Biotronik, Brandan MILES, Coronary Balloon, 3.5, 20 [place], XIENCE SKYPOINT SEPIDEH RX, Drug Eluting Stent, 3.50, 23 Terumo Medical Scot., [place] Takeru RX, Coronary Balloon, 4.0, 8 [place] Scientific, Emerge Monorail, Coronary Balloon, 2.00, 12 [place] Scientifc, OPTICROSS HD 60MHZ, IVUS Transducer, 3F, 0 [place], XIENCE SKYPOINT SEPIDEH RX, Drug Eluting Stent, 2.50, 12 [place] Vascular, [place] Trek Avtar RX, Coronary Balloon, 5.0, 8 [place] Scientific, [place] Emerge Monorail, Coronary Balloon, 3.75, 12 [place] Scientifc, OPTICROSS HD 60MHZ, IVUS Transducer, 3F, 0 [place] Scientifc, OPTICROSS HD 60MHZ, IVUS Transducer, 3F, 0 [employer], CHARITO Stiffened Dilator, Sheath, 4F, 10 Terumo Medical Scot., [place], Sheath, 7F, 10 [employer], CHARITO Stiffened [...] Terumo, Takeru RX, Coronary Balloon, 2.50, 15 [place] Scientifc, OPTICROSS HD 60MHZ, IVUS Transducer, 3F, 0 Terumo Medical Scot., TAKERU NC RX BALLOON, Coronary Balloon, 2.5, 21 [place], XIENCE SKYPOINT SEPIDEH RX, Drug Eluting Stent, 2.50, 33 [facility] Scientific, [place] EMERGE Monorail, Coronary Balloon, 3, 20 [facility], [place] EMERGE Monorail, Coronary Balloon, 3, 20 Biotronik, Brandan MILES, Coronary Balloon, 3.0, 15 Biotronik, Brandan MILES, Coronary Balloon, 3.0, 15 [place] Scientifc, OPTICROSS HD 60MHZ, IVUS Transducer, 3F, [...] stable. EMERGENCY CONTACTS: Kandi Tapia MD Pager: [phone] This report has been electronically signed by [...] Tapia MD - 04/02/[address] 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 Follow up with primary ambulance driver ANTIPLATELET & ANTICOAGULATION RECOMMENDATIONS: Aspirin: 81 mg [...] data and with the inputof the referring ambulance driver. Based on these considerations, we decided to perform the interventional procedure. CARDIAC INTERVENTIONAL TECHNIQUE: - A Peerby 7F Launcher 7F EBU 4.0 guiding catheter [...] confirmed bycontrast injection. - The lesion of iliamna Mid LMCA was crossed with a Sportistic Takeru RX balloon catheter of 2.50 mm and 15 mm length and pre-dilatation was performed. Maximal inflation pressure was 16 CARO. - A 3F Yottaa OPTICROSS HD 60MHZ intravascular ultrasound catheter was inserted over the guide wire into the iliamna Proximal LAD. Image recording was initiated and coronary ultrasound images were acquired during slow pullback. After completion of intravascularimaging, the catheter was removed. - A Asahi INTECC 0.014in DANIELA BLUE coronary wire was manipulated into the distal first diagonal branch. Its position was confirmed bycontrast injection. - The lesion of iliamna Proximal LAD was crossed with a BiotronikPantera MILES balloon catheter of 3.0 mm and 15 mm length and pre-dilatation was performed. Maximal inflation pressure was 18 CARO. - The lesion of iliamna Proximal LAD was crossed with a BiotronikPantera MILES balloon catheter of 3.5 mm and 20 mm length and pre-dilatation was performed. Maximal inflation pressure was 14 CARO. - A stent delivery system with [place] XIENCE SKYPOINT SEPIDEH RX stent of 2.50 mm and 33 mm long was inserted over the wire and under fluoroscopic guidance, the stent was placed across the lesion of iliamna Proximal LAD. - The lesion of iliamna Proximal LAD was crossed with a BiotronikPantera MILES balloon catheter of 3.5 mm and 20 mm length and post-dilatation was performed. Maximal inflation pressure was 14 CARO. - A stent delivery system with [place] XIENCE SKYPOINT SEPIDEH RX stent of 3.50 mm and 23 mm long was inserted over the wire and under fluoroscopic guidance, the stent was placed across the lesion of iliamna Mid LMCA. - The lesion of iliamna Mid LMCA was crossed with a Biotronik Brandan MILES balloon catheter of 3.5 mm and 20 mm length and post-dilatation was performed. Maximal inflation pressure was 14 CARO. - The lesion of iliamna Mid LMCA was crossed with a C4 Imaging. [place] Takeru RX balloon catheter of 4.0 mm and 8 mm length and post-dilatation was performed. Maximal inflation pressure was 18 CARO. - The lesion of iliamna Mid LMCA was crossed with a Biotronik Brandan MILES balloon catheter of 4.5 mm and 8 mm length and post-dilatation was performed. Maximal inflation pressure was 18 CARO. - A EMUZECC 0.014in DANIELA BLUE coronary wire was manipulated into the distal circumflex coronary artery. Its position was confirmedby contrast injection. - The lesion of iliamna Proximal Circumflex was crossed with a Attachments.me Scientific Emerge Monorail balloon catheter of 2.00 mm and 12 mm length and pre-dilatation was performed. Maximal inflation pressure was 14 CARO. - The lesion of iliamna Proximal Circumflex was crossed with a C4 Imaging. TAKERU [place] RX BALLOON balloon catheter of 2.5 mm and 21 mm length and pre-dilatation was performed. Maximal inflationpressure was 18 CARO. - A 3F [facility] Moneythink HD 60MHZ intravascular ultrasound catheter was inserted over the guide wire into the iliamna Proximal Circumflex. Image recording was initiated and coronary ultrasound images were acquired during slow pullback. After completion of intravascular imaging, the catheter was removed. - A stent delivery system with [place] XIENCE SKYPOINT SEPIDEH RX stent of 2.50 mm and 12 mm long was inserted over the wire and under fluoroscopic guidance, the stent was placed across the lesion of iliamna Proximal Circumflex. - The lesion of iliamna Proximal LAD was crossed with Collections Marketing CenterNC FAMOCO Monorail balloon catheter of 3.75 mm and 12 mm length and post-dilatation was performed. Maximal inflation pressure was 10 CARO. - A 3F DocuTAPc OPTICROSS HD 60MHZ intravascular ultrasound catheter was inserted over the guide wire into the iliamna Proximal Circumflex. Image recording was initiated and coronary ultrasound images were acquired during slow pullback. After completion of intravascular imaging, the catheter was removed. - A 3F ITemaentifc OPTICROSS HD 60MHZ intravascular ultrasound catheter was inserted over the guide wire into the iliamna Proximal LAD. Image recording was initiated and coronary ultrasound images were acquired during slow pullback. After completion of intravascularimaging, the catheter was removed. - Stenting of proximal third of the iliamna Proximal LAD was successful. Pre-intervention stenosis was 70%. Final post-intervention stenosis was0%. There was no thrombus. JOESPH flow was 3: Complete and Brisk Flow/Perfusion. There was no dissection. - Stenting of proximal third of the iliamna Proximal Circumflex was successful. Pre-intervention stenosis was 40%. Final post-intervention stenosis was0%. There was no thrombus. JOESPH flow was 3: Complete and Brisk Flow/Perfusion. There was no dissection. - Stenting of distal third of the iliamna Mid LMCA was successful. Pre-intervention stenosis was 80%. Final post-intervention stenosis was0%. There was no thrombus. JOESPH flow was 3: Complete and Brisk Flow/Perfusion. There was no dissection. EQUIPMENT: Sportistic Medical Scot., [place] Takeru RX, Coronary Balloon, 4.0, 8 Biotronik, Brandan MILES, Coronary Balloon, 4.5, 8 Biotronik, Brandan MILES, Coronary Balloon, 4.5, 8 Biotronik, Brandan MILES, Coronary Balloon, 3.5, 20 Ross, XIENCE SKYPOINT SEPIDEH RX, Drug Eluting Stent, 3.50, 23 TerPososhok.ru Scot., [place] Takeru RX, Coronary Balloon, 4.0, 8 [place] [employer], Emerge Monorail, Coronary Balloon, 2.00, 12 [place] Scientifc, OPTICROSS HD 60MHZ, IVUS Transducer, 3F, 0 Ross, XIENCE SKYPOINT SEPIDEH RX, Drug Eluting Stent, 2.50, 12 [place] Vascular, [place] Trek Avtar RX, Coronary Balloon, 5.0, 8 [place] Scientific, [place] Emerge Monorail, Coronary Balloon, 3.75, 12 [place] Scientifc, OPTICROSS HD 60MHZ, IVUS Transducer, 3F, 0 [place] Scientifc, OPTICROSS HD 60MHZ, IVUS Transducer, 3F, 0 [employer]er [employer], CHARITO Stiffened Dilator, Sheath, 4F, 10 TerumPrime Grid Medical Scot., [place], Sheath, 7F, 10 [employer], CHARITO Stiffened Dilator, Sheath, 4F, 10 Cordis, BRITE TIP, Sheath, 7F, 45 Ross, Versacore MOD J, Peripheral Guidewire, 175 TerumEventRegist Scot., [place] Extra Floppy, Coronary Guidewire, .014in, 180 Medtronic, Launcher 7F EBU 4.0, Guiding Catheter, 7F, 100 Asahi INTECC, DANIELA BLUE, Coronary Guidewire, 0.014in, 180 V[employer] Solutions, SUPERCROSS 120 Angled tip, Microcatheter, .014 in,130 Terumo, Takeru RX, Coronary Balloon, 2.50, 15 [place] Scientifc, OPTICROSS HD 60MHZ, IVUS Transducer, 3F, 0 NanosphereumPrime Grid Medical Scot., TAKERU [place] RX BALLOON, Coronary Balloon, 2.5, 21 Ross, XIENCE SKYPOINT SEPIDEH RX, Drug Eluting Stent, 2.50, 33 [facility] Scientific, [place] EMERGE Monorail, Coronary Balloon, 3, 20 [facility], [place] EMERGE Monorail, Coronary Balloon, 3, 20 Biotronik, Brandan MILES, Coronary Balloon, 3.0, 15 Biotronik, Brandan MILES, Coronary Balloon, 3.0, 15 [place] Scientifc, OPTICROSS HD 60MHZ, IVUS Transducer, 3F, [...] stable. EMERGENCY CONTACTS: Kandi Tapia MD Pager: [phone] This report has been electronically signed by [...] 04/02/2025 5:41 PM EDT Cardiac Catheterization Report 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 Follow up with primary ambulance driver ANTIPLATELET & ANTICOAGULATION RECOMMENDATIONS: Aspirin: 81 mg [...] and with the input of the referring ambulance driver. Based on these considerations, we decided to perform the interventional procedure. CARDIAC INTERVENTIONAL TECHNIQUE: - A Peerby 7F Launcher 7F EBU 4.0 guiding catheter [...] by contrast injection. - The lesion of iliamna Mid LMCA was crossed with a Sportistic Takeru RX balloon catheter of 2.50 mm and 15 mm length and pre-dilatation was performed. Maximal inflation pressure was 16 CARO. - A 3F Yottaa OPTICROSS HD 60MHZ intravascular ultrasound catheter was inserted over the guide wire into the iliamna Proximal LAD. Image recording was initiated and coronary ultrasound images were acquired during slow pullback. After completion of intravascular imaging, the catheter was removed. - A Asahi INTECC 0.014in DANIELA BLUE coronary wire was manipulated into the distal first diagonal branch. Its position was confirmed by contrast injection. - The lesion of iliamna Proximal LAD was crossed with a Biotronik Brandan MILES balloon catheter of 3.0 mm and 15 mm length and pre-dilatation was performed. Maximal inflation pressure was 18 CARO. - The lesion of iliamna Proximal LAD was crossed with a Biotronik [...] stent was placed across the lesion of iliamna Proximal LAD. - The lesion of iliamna Proximal LAD was crossed with a Biotronik [...] stent was placed across the lesion of iliamna Mid LMCA. - The lesion of iliamna Mid LMCA was crossed with a Biotronik Brandan MLIES balloon catheter of 3.5 mm and 20 mm length and post-dilatation was performed. Maximal inflation pressure was 14 CARO. - The lesion of iliamna Mid LMCA was crossed with a C4 Imaging. [place] Takeru RX balloon catheter of 4.0 mm and 8 mm length and post-dilatation was performed. Maximal inflation pressure was 18 CARO. - The lesion of iliamna Mid LMCA was crossed with a Biotronik Brandan MILES balloon catheter of 4.5 mm and 8 mm length and post-dilatation was performed. Maximal inflation pressure was 18 CARO. - A EMUZECC 0.014in DANIELA BLUE coronary wire was manipulated into the distal circumflex coronary artery. Its position was confirmed by contrast injection. - The lesion of iliamna Proximal Circumflex was crossed with a S&N Airoflo Monorail balloon catheter of 2.00 mm and 12 mm length and pre-dilatation was performed. Maximal inflation pressure was 14 CARO. - The lesion of iliamna Proximal Circumflex was crossed with a C4 Imaging. TAKERU NC RX BALLOON balloon catheter of 2.5 mm and 21 mm length and pre-dilatation was performed. Maximal inflation pressure was 18 CARO. - [facility] OPTICROSS HD 60MHZ intravascular ultrasound catheter was inserted over the guide wire into the iliamna Proximal Circumflex. Image recording was initiated and coronary ultrasound images were acquired during slow pullback. After completion of intravascular imaging, the catheter was removed. - A stent delivery system with Ross XIENCE SKYPOINT SEPIDEH RX stent of 2.50 mm and 12 mm long was inserted over the wire and under fluoroscopic guidance, the stent was placed across the lesion of iliamna Proximal Circumflex. - The lesion of iliamna Proximal LAD was crossed with Tomorrowish Emerge Monorail balloon catheter of 3.75 mm and 12 mm length and post-dilatation was performed. Maximal inflation pressure was 10 CARO. - A 3F [place] [employer] OPTICROSS HD 60MHZ intravascular ultrasound catheter was inserted over the guide wire into the iliamna Proximal Circumflex. Image recording was initiated and coronary ultrasound images were acquired during slow pullback. After completion of intravascular imaging, the catheter was removed. - A 3F [place] [employer] OPTICROSS HD 60MHZ intravascular ultrasound catheter was inserted over the guide wire into the iliamna Proximal LAD. Image recording was initiated and coronary ultrasound images were acquired during slow pullback. After completion of intravascular imaging, the catheter was removed. - Stenting of proximal third of the iliamna Proximal LAD was successful. Pre-intervention stenosis was 70%. Final post-intervention stenosis was 0%. There was no thrombus. JOESPH flow was 3: Complete and Brisk Flow/Perfusion. There was no dissection. - Stenting of proximal third of the iliamna Proximal Circumflex was successful. Pre-intervention stenosis was 40%. Final post-intervention stenosis was 0%. There was no thrombus. JOESPH flow was 3: Complete and Brisk Flow/Perfusion. There was no dissection. - Stenting of distal third of the iliamna Mid LMCA was successful. Pre-intervention stenosis was 80%. Final post-intervention stenosis was 0%. There was no thrombus. JOESPH flow was 3: Complete and Brisk Flow/Perfusion. There was no dissection. EQUIPMENT: [employer] Scot., [place] Takeru RX, Coronary Balloon, 4.0, 8 Biotronik, Brandan MILES, Coronary Balloon, 4.5, 8 Biotronik, Brandan MILES, Coronary Balloon, 4.5, 8 Biotronik, Brandan MILES, Coronary Balloon, 3.5, 20 Ross, XIENCE SKYPOINT SEPIDEH RX, Drug Eluting Stent, 3.50, 23 TerPOPSUGAR Medical Scot., [place] Takeru RX, Coronary Balloon, 4.0, 8 [place] [employer], Emerge Monorail, Coronary Balloon, 2.00, 12 [place] [employer], OPTICROSS HD 60MHZ, IVUS Transducer, 3F, 0 Ross, XIENCE SKYPOINT SEPIDEH RX, Drug Eluting Stent, 2.50, 12 Ross Vascular, [place] Trek Avtar RX, Coronary Balloon, 5.0, 8 [place] [employer], NC Emerge Monorail, Coronary Balloon, 3.75, 12 [place] [employer], OPTICROSS HD 60MHZ, IVUS Transducer, 3F, 0 [place] [employer], OPTICROSS HD 60MHZ, IVUS Transducer, 3F, 0 Merit [employer], CHARITO Stiffened Dilator, Sheath, 4F, 10 Terumo Medical Scot., [place], Sheath, 7F, 10 [employer], CHARITO Stiffened Dilator, Sheath, 4F, 10 Cordis, BRITE TIP, Sheath, 7F, 45 Ross, Versacore MOD J, Peripheral Guidewire, 175 TerumEventRegist Scot., Runthrough NS Extra Floppy, Coronary Guidewire, .014 in, 180 Medtronic, Launcher 7F EBU 4.0, Guiding Catheter, 7F, 100 Asahi INTECC, DANIELA BLUE, Coronary Guidewire, 0.014in, 180 Vascular Solutions, SUPERCROSS 120 Angled tip, Microcatheter, .014 in, 130 Terumo, Takeru RX, Coronary Balloon, 2.50, 15 [place] [employer], OPTICROSS HD 60MHZ, IVUS Transducer, 3F, 0 Filmaka Scot., TAKERU NC RX BALLOON, Coronary Balloon, 2.5, 21 Ross, XIENCE SKYPOINT SEPIDEH RX, Drug Eluting Stent, 2.50, 33 BoSston Scientific, NC EMERGE Monorail, Coronary Balloon, 3, 20 [employer]Sston Scientific, NC EMERGE Monorail, Coronary Balloon, 3, 20 Biotronik, Brandan MILES, Coronary Balloon, 3.0, 15 Biotronik, Brandan MILES, Coronary Balloon, 3.0, 15 [place] [employer], OPTICROSS HD 60MHZ, IVUS Transducer, 3F, [...] stable. EMERGENCY CONTACTS: Kandi Tapia MD Pager: [phone] This report has been electronically signed by [...] Tapia MD - 04/02/[address] 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 Follow up with primary ambulance driver ANTIPLATELET & ANTICOAGULATION RECOMMENDATIONS: Aspirin: 81 mg [...] data and with the inputof the referring ambulance driver. Based on these considerations, we decided to perform the interventional procedure. CARDIAC INTERVENTIONAL TECHNIQUE: - A Peerby 7F Launcher 7F EBU 4.0 guiding catheter was inserted over a guidewire and engaged into the left coronary ostium. Coronaryangiogram was performed in orthogonal views to ascertain the guide position. - A SNSplus 0.014in DANIELA BLUE coronary wire was manipulated [...] confirmed bycontrast injection. - The lesion of iliamna Mid LMCA was crossed with a Sportistic Takeru RX balloon catheter of 2.50 mm and 15 mm length and pre-dilatation was performed. Maximal inflation pressure was 16 CARO. - A 3F [employer] HD 60MHZ intravascular ultrasound catheter was inserted over the guide wire into the iliamna Proximal LAD. Image recording was initiated and coronary ultrasound images were acquired during slow pullback. After completion of intravascularimaging, the catheter was removed. - A Asahi INTECC 0.014in DANIELA BLUE coronary wire was manipulated into the distal first diagonal branch. Its position was confirmed bycontrast injection. - The lesion of iliamna Proximal LAD was crossed with a BiotronikPantera MILES balloon catheter of 3.0 mm and 15 mm length and pre-dilatation was performed. Maximal inflation pressure was 18 CARO. - The lesion of iliamna Proximal LAD was crossed with a BiotronikPantera MILES balloon catheter of 3.5 mm and 20 mm length and pre-dilatation was performed. Maximal inflation pressure was 14 CARO. - A stent delivery system with Ross XIENCE SKYPOINT SEPIDEH RX stent of 2.50 mm and 33 mm long was inserted over the wire and under fluoroscopic guidance, the stent was placed across the lesion of iliamna Proximal LAD. - The lesion of iliamna Proximal LAD was crossed with a BiotronikPantera MILES balloon catheter of 3.5 mm and 20 mm length and post-dilatation was performed. Maximal inflation pressure was 14 CARO. - A stent delivery system with Ross XIENCE SKYPOINT SEPIDEH RX stent of 3.50 mm and 23 mm long was inserted over the wire and under fluoroscopic guidance, the stent was placed across the lesion of iliamna Mid LMCA. - The lesion of iliamna Mid LMCA was crossed with a The New Music MovementroniVisual IQ Brnadan MILES balloon catheter of 3.5 mm and 20 mm length and post-dilatation was performed. Maximal inflation pressure was 14 CARO. - The lesion of iliamna Mid LMCA was crossed with a C4 Imaging. NC Takeru RX balloon catheter of 4.0 mm and 8 mm length and post-dilatation was performed. Maximal inflation pressure was 18 CARO. - The lesion of iliamna Mid LMCA was crossed with a Biotronik Brandan MILES balloon catheter of 4.5 mm and 8 mm length and post-dilatation was performed. Maximal inflation pressure was 18 CARO. - A ReviverMx INTECC 0.014in DANIELA BLUE coronary wire was manipulated into the distal circumflex coronary artery. Its position was confirmedby contrast injection. - The lesion of iliamna Proximal Circumflex was crossed with a S&N Airoflo Monorail balloon catheter of 2.00 mm and 12 mm length and pre-dilatation was performed. Maximal inflation pressure was 14 CARO. - The lesion of iliamna Proximal Circumflex was crossed with a C4 Imaging. TAKERU NC RX BALLOON balloon catheter of 2.5 mm and 21 mm length and pre-dilatation was performed. Maximal inflationpressure was 18 CARO. - A 3F ITemaentifc OPTICROSS HD 60MHZ intravascular ultrasound catheter was inserted over the guide wire into the iliamna Proximal Circumflex. Image recording was initiated and coronary ultrasound images were acquired during slow pullback. After completion of intravascular imaging, the catheter was removed. - A stent delivery system with Ross XIENCE SKYPOINT SEPIDEH RX stent of 2.50 mm and 12 mm long was inserted over the wire and under fluoroscopic guidance, the stent was placed across the lesion of iliamna Proximal Circumflex. - The lesion of iliamna Proximal LAD was crossed with [place] [employer] Emerge Monorail balloon catheter of 3.75 mm and 12 mm length and post-dilatation was performed. Maximal inflation pressure was 10 CARO. - A 3F [place] [employer] OPTICROSS HD 60MHZ intravascular ultrasound catheter was inserted over the guide wire into the iliamna Proximal Circumflex. Image recording was initiated and coronary ultrasound images were acquired during slow pullback. After completion of intravascular imaging, the catheter was removed. - A 3F [place] [employer] OPTICROSS HD 60MHZ intravascular ultrasound catheter was inserted over the guide wire into the iliamna Proximal LAD. Image recording was initiated and coronary ultrasound images were acquired during slow pullback. After completion of intravascularimaging, the catheter was removed. - Stenting of proximal third of the iliamna Proximal LAD was successful. Pre-intervention stenosis was 70%. Final post-intervention stenosis was0%. There was no thrombus. JOESPH flow was 3: Complete and Brisk Flow/Perfusion. There was no dissection. - Stenting of proximal third of the iliamna Proximal Circumflex was successful. Pre-intervention stenosis was 40%. Final post-intervention stenosis was0%. There was no thrombus. JOESPH flow was 3: Complete and Brisk Flow/Perfusion. There was no dissection. - Stenting of distal third of the iliamna Mid LMCA was successful. Pre-intervention stenosis was 80%. Final post-intervention stenosis was0%. There was no thrombus. JOESPH flow was 3: Complete and Brisk Flow/Perfusion. There was no dissection. EQUIPMENT: NanosphereumPrime Grid Medical Scot., [place] Takeru RX, Coronary Balloon, 4.0, 8 Biotronik, Brandan MILES, Coronary Balloon, 4.5, 8 Biotronik, Brandan MILES, Coronary Balloon, 4.5, 8 Biotronik, Brandan MILES, Coronary Balloon, 3.5, 20 Ross, XIENCE SKYPOINT SEPIDEH RX, Drug Eluting Stent, 3.50, 23 Terumo Medical Scot., [place] Takeru RX, Coronary Balloon, 4.0, 8 [place] [employer], Emerge Monorail, Coronary Balloon, 2.00, 12 [place] [employer], OPTICROSS HD 60MHZ, IVUS Transducer, 3F, 0 Ross, XIENCE SKYPOINT SEPIDEH RX, Drug Eluting Stent, 2.50, 12 Ross Vascular, NC Trek Avtar RX, Coronary Balloon, 5.0, 8 [place] [employer], NC Emerge Monorail, Coronary Balloon, 3.75, 12 [place] [employer], OPTICROSS HD 60MHZ, IVUS Transducer, 3F, 0 [place] [employer], OPTICROSS HD 60MHZ, IVUS Transducer, 3F, 0 Connoshoer MedicalCHARITO Stiffened Dilator, Sheath, 4F, 10 Filmaka Scot., [place], Sheath, 7F, 10 Connoshoer Medical CHARITO Stiffened Dilator, Sheath, 4F, 10 Cordis, BRITE TIP, Sheath, 7F, 45 Ross, Versacore MOD J, Peripheral Guidewire, 175 TerPososhok.ru Scot., Runthrough NS Extra Floppy, Coronary Guidewire, .014in, 180 Medtronic, Launcher 7F EBU 4.0, Guiding Catheter, 7F, 100 Asahi INTECC, DANIELA BLUE, Coronary Guidewire, 0.014in, 180 Vascular Solutions, SUPERCROSS 120 Angled tip, Microcatheter, .014 in,130 Terumo, Takeru RX, Coronary Balloon, 2.50, 15 [place] [employer], OPTICROSS HD 60MHZ, IVUS Transducer, 3F, 0 Terumo Medical Scot., TAKERU NC RX BALLOON, Coronary Balloon, 2.5, 21 Ross, XIENCE SKYPOINT SEPIDEH RX, Drug Eluting Stent, 2.50, 33 BoSDNA SEQ Scientific, NC EMERGE Monorail, Coronary Balloon, 3, 20 BoSston Scientific, NC EMERGE Monorail, Coronary Balloon, 3, 20 Biotronik, Brandan MILES, Coronary Balloon, 3.0, 15 Biotronik, Brandan MILES, Coronary Balloon, 3.0, 15 [place] [employer], OPTICROSS HD 60MHZ, IVUS Transducer, 3F, [...] stable. EMERGENCY CONTACTS: Kandi Tapia MD Pager: [phone] This report has been electronically signed by [...] CLOT TIME 273(H) 90 - 130 sec [facility] 03/31/2025 3:04 PM EDT 03/31/2025 3:06 PM EDT us Figueroa Brian MD LAB POCT ENTER/EDIT ORDERABLES Final Result [facility] [address] [place] [address] * Lipoprotein (a) (03/31/2025 6:20 AM EDT) Lipoprotein(a) 29 <75 nmol/L [facility] DPT OF LAB [...] considered a risk enhancing factor by the [employer]. This test has been modified from the sales coordinator's instructions. Its performance characteristics were determined by [facility] in a manner consistent with CLIA requirements. This test has not been cleared or approved by the U.S. Food and Drug Administration. Blood 03/31/2025 6:20 AM EDT 03/31/2025 6:49 AM EDT us Sukhdev Mederos PA-C LAB BLOOD ORDERABLES Final Result [facility] DPT OF LAB MED AND PAT+ [address] [place] [address] * PT-INR (03/31/2025 6:20 AM EDT) Only the most recent of2 resultswithin the time period is included. PT 12.6 10.0 - 13.0 sec [facility] INR 1.1 0.9 - 1.1 [facility] Blood 03/31/2025 6:20 AM EDT 03/31/2025 6:50 AM EDT Agusto Rene MD, MPP LAB BLOOD BKR ORDERA BLES Final Result Performing Organization Address [facility] Co de Phone Number [address] [address] * Urinalysis w/reflex Urine Culture (03/30/2025 11:47 AM EDT) COLOR Yellow Yellow [facility] CLARITY Clear Clear [facility] GLUCOSE Negative Negative [facility] BILI Negative Negative [facility] KETONES Negative Negative [facility] SPECIFIC GRAVITY 1.019 1.001 - 1.035 [facility] BLOOD Negative Negative [facility] PH 7.5 5.0 - 9.0 [facility] Protein-UA Negative Negative [facility] UROBILINOGEN Negative Negative [facility] NITRITE Negative Negative [facility] Leukocyte esterase, ur Negative Negative [facility] Urine (Urine) 03/30/2025 11: 47 AM EDT 03/30/2025 12:16 PM EDT Bernadette Corcoran MD, MPH LAB URINE ORDERABLES Final Result Performing Organization Address [facility] Co de Phone Number [address] [address] * MICROALBUMIN/CREATININE, RANDOM URINE (03/30/2025 11:47 AM EDT) MICROALB/CRE RATIO 7.9 <30.0 mg/g Cre [facility] 03/30/2025 11:4 7 AM EDT 03/30/2025 12:19 PM EDT Bernadette Corcoran MD, MPH URINE ORDERABLES Final Resu lt Performing Organization Address [facility] Co de Phone Number [address] [address] * TOTAL PROTEIN CREATININE RATIO, RANDOM URINE (03/30/2025 11:47 AM EDT) URINE TOTAL PROTEIN 9.4 0.0 - 13.5 mg/dL [facility] URINE CREATININE 114 mg/dL [facility] URINE TP CRE RATIO 0.08 <0.15 [facility] Urine (Urine) 03/30/2025 11: 47 AM EDT 03/30/2025 12:19 PM EDT us Bernadette Corcoran MD, MPH LAB URINE ORDERABLES Final Result [address] [address] * Microalbumin, Urine (03/30/2025 11:47 AM EDT) URINE MICROALBUMIN 0.9 0.0 - 2.0 mg/dL [facility] 03/30/2025 11:4 7 AM EDT 03/30/2025 12:19 PM EDT us Bernadette Corcoran MD, MPH LAB URINE ORDERABLES Final Result Performing Organization Address City/[facility]/ZIP Co de Phone Number [address] [address] * Urea nitrogen, random urine (03/30/2025 11:47 AM EDT) URINE UREA NITROGEN 876 mg/dL [facility] Urine (Urine) 03/30/2025 11: 47 AM EDT 03/30/2025 12:19 PM EDT us Bernadette Corcoran MD, MPH LAB URINE ORDERABLES Final Result Performing Organization Address City/[facility]/ZIP Co de Phone Number [address] [address] * Sodium, random urine (03/30/2025 11:47 AM EDT) URINE SODIUM 100 mmol/L [facility] Comment:Results must be inte rpreted based on patient context and with other clinical and laboratory data. Urine (Urine) 03/30/2025 11: 47 AM EDT 03/30/2025 12:19 PM EDT us Bernadette Corcoran MD, MPH LAB URINE ORDERABLES Final Result Performing Organization Address [facility] Co de Phone Number [address] [address] * Potassium, random urine (03/30/2025 11:47 AM EDT) URINE POTASSIUM 68.1 mmol/L [facility] Urine (Urine) 03/30/2025 11: 47 AM EDT 03/30/2025 12:19 PM EDT us Bernadette Corcoran MD, MPH URINE ORDERABLES Final Resu lt Performing Organization Address [facility] Co de Phone Number [address] [address] * Osmolality, Random Urine (03/30/2025 11:47 AM EDT) URINE OSMOLALITY 629 150 - 1,150 mOsm/kg water [facility] Urine (Urine) 03/30/2025 11: 47 AM EDT 03/30/2025 12:19 PM EDT Result Lucio Corcoran MD, MPH LAB URINE ORDERABLES Final Result Performing Organization Address [facility] de Phone Number [address] [address] * (ABNORMAL) Apolipoprotein A1 & B (03/30/2025 11:29 AM EDT) APOLIPOPROTEIN A1 102(L) >=120 mg/dL [facility] DPT OF LAB MED AND PAT+ APOLIPOPROTEIN B 91 mg/dL [facility] DPT OF LAB MED AND PAT+ Comment: (NOTE) REFERENCE VALUE Desirable: <90 Above Desirable: 90-99 Borderline high: 100-119 High: 120-139 Very high: > or = 140 Apolipo B/A1 Ratio 0.9 M [facility] DPT OF LAB MED AND PAT+ Comment: (NOTE) REFERENCE VALUE Lower Risk: <0.7 Average Risk: 0.7-0.9 Higher Risk: >0.9 Blood 03/30/2025 11:2 9 AM EDT 03/30/2025 12:08 PM EDT us Bernadette Corcoran MD, MPH LAB BLOOD BKR ORDERABLES Fi nal Result Performing Organization Address [facility] Co de Phone Number [facility] DPT OF LAB MED AND PAT+ [address] [place] [address] * Cystatin C (03/30/2025 11:29 AM EDT) Pathologist [facility] Cystatin C 0.70 0.61 - 0.95 mg/L [facility] eGFR (Cystatin C) 114 >59 mL/min/1. 73m2 [facility] Comment: Cystatin C-based eGFR may differ substantially from creatinine-based eGFR in patients with abnormal muscle mass or acutely changing renal function. Please interpret together with relevant clinical features. Blood 03/30/2025 11:2 9 AM EDT 03/30/2025 1:08 PM EDT us Bernadette Corcoran MD, MPH LAB BLOOD BKR ORDERABLES Fi nal Result Performing Organization Address City/[facility]/ZIP Co de Phone Number [facility] [address] [place] [address] * CYP 2C19 Genotype (03/30/2025 11:29 AM EDT) Pathologist [facility] [id number] GENOTYPE SQ SEE NOTE 06:04 AM [facility] DPT OF LAB MED AND PAT+ Comment: (NOTE) Test Result Flag Unit RefValue [id number] Genotype, V [id number] Genotype 2/17 [id number] Phenotype Intermediate metabolizer Interpretation SEE NOTE Caution should be exercised when treating with drugs metabolized by WYB6U98 as follows: With prodrugs that are activated by PGA6S76, such as clopidogrel, reduced activation of the drug is expected which may result in decreased efficacy of the drug. With drugs that are inactivated by GTP7W74, such as citalopram, reduced inactivation is expected [...] the 5'-nuclease polymerase degrades the probe, the metal sponge making machine operator dye is released from the effects of the quencher dye, and a fluorescent signal is detected. Genotypes are assigned based on the allele-specific fluorescent signals that are detected. (TaqMan SNP Genotyping Assays User Guide, Say-Hey) Disclaimer SEE NOTE Targeted variant analysis was used to test for the presence or absence of specific variants in the RIM3D61 gene:*2 (c.681G>A), *3 (c.636G>A), *4 (c.1A>G), *5 (c.1297C>T), *6 (c.395G>A), *7 (c.819+2T>A), *8 (c.358T>C), *9 (c.431G>A), *10 (c.680C>T), *17 (c.-806C>T), and *35 (c.332-23A>G in the absence of c.681G>A), based on GRCh37 [id number]. If no detectable WYE4T88 variant is found, a presumed *1 allele is assigned. This method will not detect all variants that result in altered XID8W91 activity. Therefore, absence of a detectable gene variant does not rule out the possibility that a patient has an altered YXT1A47 metabolism status due to other DOH3P78 variants that cannot be detected with this method. Furthermore, when two or more gene variants are identified, the cis-trans status (whether the variants are on the same or opposite chromosomes) is not always known. In addition to a genetic basis for CWW8V03 altered enzymatic activity, RIS8C16 enzyme activity can be inhibited by a [...] pre-transplant DNA specimen is recommended for testing. LXG9N81 genetic test results in patients who have undergone liver transplantation may not accurately reflect the patient's VRV5G25 status. This test was developed and its performance characteristics determined by [facility] in a manner consistent with CLIA requirements. This test has not been cleared or approved by the U.S. Food and Drug Administration. Reviewed by Acosta George MD Blood 03/30/2025 11:2 9 AM EDT 03/30/2025 12:08 PM EDT us Bernadette Corcoran MD, MPH LAB BLOOD ORDERABLES Final Result [facility] DPT OF LAB MED AND PAT+ [address] [place] [address] * C-reactive protein, high sensitivity (03/30/2025 11:29 AM EDT) [facility] CRP, HIGH SENSITIVITY 7.0 mg/L [facility] Comment: Reference Range: Quintile 1 Lowest Risk [...] ORDERABLES Fi nal Result Performing Organization Address City/[facility]/ZIP Co de Phone Number [address] [address] * TSH with reflex (03/30/2025 11:29 AM EDT) SCREENING PANEL: TSH 2.77 0.40 - 5.00 uIU/mL [facility] Blood 03/30/2025 11:2 9 AM EDT 03/30/2025 12:12 PM EDT us Bernadette Corcoran MD, MPH LAB BLOOD BKR ORDERABLES Fi nal Result Performing Organization Address [facility] Co de Phone Number [address] [address] * (ABNORMAL) Hemoglobin A1c (03/30/2025 6:45 AM EDT) HEMOGLOBIN A1C 6.2(H) 4.3 - 5.6 % [facility] Comment:HbA1c levels 5.7-6.4 % represent pre-diabetes, indicating impaired glucose control and an increased risk of developing diabetes compared with lower HbA1c levels. The diagnostic HbA1c level for diabetes is 6.5% or greater. CALC MEAN BLD GLUC 131 mg/dL [facility] Comment:There is no establis [facility] normal range for the Calculated Mean Blood [...] ORDERAB LES Final Result Performing Organization Address City/[facility] Co de Phone Number [address] [address] * (ABNORMAL) Lipid panel (03/30/2025 6:45 AM EDT) HDL 29(L) 35 - 100 mg/dL [facility] CHOLESTEROL 146 <200 mg/dL [facility] TRIGLYCERIDES 84 40 - 150 mg/dL [facility] LDL 100 50 - 129 mg/dL [facility] CARDIAC RISK RATIO 5.0 0.0 - 5.0 [facility] NON-HDL CHOLESTEROL 117 mg/dL [facility] Comment:Guidelines suggest a non-HDL cholesterol goal 30 mg/dL higher than the patient-specific LDL goal. Blood 03/30/2025 6:45 AM EDT 03/30/2025 7:08 AM EDT Sukhdev Mederos PA-C LAB BLOOD BKR ORDERAB LES Final Result Performing Organization Address [facility] Co de Phone Number [address] [address] * (ABNORMAL) CBC and differential (03/29/2025 10:04 PM EDT) Only the most recent of2 resultswithin the time period is included. Pathologist [facility] WBC 10.18 4.00 - 11.00 K/uL [facility] RBC 4.53 4.50 - 5.90 M/uL [facility] HGB 13.4(L) 13.5 - 17.5 g/dL [facility] HCT 39.0(L) 41.0 - 53.0 % [facility] PLT 337 150 - 450 K/uL [facility] MCV 86.1 80.0 - 100.0 fL [facility] MCH 29.6 27.0 - 31.0 pg [facility] MCHC 34.4 32.0 - 36.0 g/dL [facility] RDW 12.6 11.5 - 14.5 % [facility] MPV 9.0 8.4 - 12.0 fL [facility] NRBC 0.00 0.00 /100 WBCs [facility] ABSOLUTE NRBC 0.00 0.00 K/uL [facility] DIFF METHOD Auto [facility] NEUTS 73.5 48.0 - 76.0 % [facility] LYMPHS 13.5(L) 18.0 - 41.0 % [facility] MONOS 7.5 4.0 - 11.0 % [facility] EOS 4.7 0.0 - 5.0 % [facility] BASOS 0.5 0.0 - 1.5 % [facility] % IMMATURE GRANS 0.3 0.0 - 0.9 % [facility] ABSOLUTE NEUTS 7.49 1.92 - 7.60 K/uL [facility] ABSOLUTE LYMPHS 1.37 0.72 - 4.10 K/uL [facility] ABSOLUTE MONOS 0.76 0.16 - 1.10 K/uL [facility] ABSOLUTE EOS 0.48 0.00 - 0.50 K/uL [facility] ABSOLUTE BASOS 0.05 0.00 - 0.15 K/uL [facility] ABS IMMATURE GRANS 0.03 0.00 - 0.09 K/uL [facility] Blood 03/29/2025 10:0 4 PM EDT 03/29/2025 10:28 PM EDT us Sukhdev Mederos PA-C LAB BLOOD BKR ORDERAB LES Final Result [address] [address] * Troponin (03/29/2025 9:53 PM EDT) Only the most recent of2 resultswithin the time period is included. Troponin-T, HS Gen5 <6 0 - 14 ng/L [facility] Blood 03/29/2025 9:53 PM EDT 03/29/2025 10:28 PM EDT us Esme Dumont MD, MPH LAB BLOOD BKR ORDERABLE S Final Result [address] [address] * ABO and Rh (03/29/2025 9:23 PM EDT) Expiration Date of Sample 04/01/2025 11:59 PM [facility] ABO A 03/29/2025 11:34 PM EDT [facility] Rh Positive 03/29/2025 11:34 PM EDT [facility] Resulting Agency [facility] 03/29/2025 9:23 PM EDT 03/29/2025 9:47 PM EDT Blood Bank LAB BLOOD BANK TEST ORDERABLES F inal Result Performing Organization Address City/[facility]/ZIP Co de Phone Number [address] [address] * PTT (03/29/2025 9:15 PM EDT) APTT 28.5 24.0 - 37.5 sec [facility] Comment:Check MAR for the ta rget range that is ordered for your patient. Blood 03/29/2025 9:15 PM EDT 03/29/2025 9:28 PM EDT Sukhdev Mederos PA-C LAB BLOOD BKR ORDERAB LES Final Result Performing Organization Address [facility] Co de Phone Number [address] [address] * ECG 12-LEAD (03/29/2025 8:12 PM EDT) Systolic Blood Pressure [facility] Diastolic Blood Pressure [facility] Ventricular Rate EKG/MIN 109 BPM [facility] Atrial Rate 109 BPM [facility] RI Interval 124 ms [facility] QRS Duration 80 ms [facility] QT Interval 328 ms [facility] QTC Interval 441 ms [facility] P [place] 74 degrees [facility] R Wave [place] 49 degrees [facility] T Wave [place] 45 degrees [facility] 03/29/2025 8:12 PM EDT 03/30/2025 11:08 AM EDT Narrative [facility] - 03/30/2025 11:09 AM EDT LOC: ED DX: CAD REF: SHOKOOH, HAMID SINUS TACHYCARDIA NONSPECIFIC ST SEGMENT AND T WAVE ABNORMALITIES NO PREVIOUS ECGS AVAILABLE SUGGEST CLINICAL CORRELATION Protocol [facility] Emergency ECG ORDERABLES Final Res ult [facility] * Outside Echo Report Only (03/29/2025 10:56 AM EDT) Other Narrative SYSTEMGENERATED, DOCUMENTATION - 03/29/2025 10:56 AM EDT Outside Images for comparison purposes only. Provider [facility] Admitting CV ECHO ORDERABLES Final Result * Outside Cath Study (03/29/2025 10:55 AM EDT) Other Narrative SYSTEMGENERATED, DOCUMENTATION - 03/29/2025 10:55 AM EDT Outside Images for comparison purposes only. 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 It is not the complete legal health record.[facility]
--- OUTSIDE RECORDS SUMMARY | 2025-05-19 16:24 | XMS_ITS | Encounter Summary ---
Author Organization [facility] Address [address] [place] [address] Phone Care Team Providers Care Senior Safety Support Manager Name Role Phone Herman Neal MD Primary Care Provider Encounter Details Date Type Department Care Team (Late st Contact Info) Description 03/31/2025 Procedure Pass [facility] Person[facility] [address] [facility], [address] [place] [address] Social History Tobacco Use Types [...] 5:00 AM EDT Krystal June RN * [place] Suicide Severity Rating Scale (Screener/Recent Self-Report) Question [...] on filedocumented in this encounter Care Teams Senior Safety Support Manager Relationship Specialty Start Date End Date Herman Neal MD PCP - General Family Medicine 07/25/24 documented as of this encounter Additional Source Comments The information contained in this document represents components of the legal health record. It is not the complete legal health record.[facility]
--- NOTE | 2025-05-19 16:32 | A.OFFPC_ITS ---
Vital Signs 05/19/25 16:34 Height 5 ft 4.5 in Weight 151 lb 4 oz BMI 25.6 BP 118/70 Blood Pressure Location Rt brachial Position Sitting Respiration 14 Pulse 88 Pulse Source Pulse Oximeter Temp 98.9 F Temp Source Oral Pulse Oximetry (%) 97 Oxygen Delivery Method Room Air Intake Visit Reasons: f/u HLD, chest pain Intake Note: patient is scheduled for lab review and to follow on chest pain he states cardiology has token care of the chest pain portion and would like to discuss his lab results [employer] Project Manager Required: No Allergies aspirin Allergy (Intermediate, Verified 05/19/25 16:33) Swelling Medication List - Last Reconciled 05/19/25 by Herman Neal MD aspirin (Adult Aspirin Regimen) 81 mg PO DAILY losartan 25 mg PO DAILY 90 days metoprolol succinate ER 50 mg PO DAILY rosuvastatin (Crestor) 40 mg PO DAILY ticagrelor (Brilinta) 90 mg PO BID Tobacco use date assessed: 03/17/25 Dental Screening Dental Screen Date: 03/17/25 HPI f/u HLD, chest pain HPI Details Patient presents for follow-up chest pain with coronary artery disease. Dx' w/ CAD with complex stenting of left main into the LAD at [facility] for significant left main stenosis. Had increased rosuvastatin and LDL cholesterol now nearly at goal of less than 55. Recent LDL cholesterol was 56. Continue current medications and continue to work at a diet low in saturated fats and cholesterol. Complex stenting and is on antiplatelet therapy for Brilinta. Cardiology recommends minimum of a year and probably longer given complex nature and severity of CAD. He is allergic to aspirin. Chest pain has resolved. Is undergoing cardiac rehab. Pt notes he graduates from cardiac rehab next week and plans to go to the gym and work out with confidence afterwards. Blood pressure today 118/70, 88p. Elevated liver enzymes. 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 Cognitive needs: No Hearing needs: No Vision needs: No Questionnaire Thrive Questionnaire Date Thrive assessed: 02/09/25 I am a: Patient What is your living situation today?: I have a steady place to live Within the past 12 months, did the food you bought not last and you didn't have the money to get more?: Never true Within the past 12 months, did you worry whether your food would run out before you got money to buy more?: Never true Do you have trouble paying for medicines?: No Do you have trouble getting transportation to medical appointments?: No Do you have trouble paying your heating and electricity bill?: No Do you have trouble taking care of your child, family member or friend?: No Do you have trouble with day-to-day activities such as bathing, preparing meals, shopping, managing finances, etc.?: No Are you currently unemployed and looking for a job?: No Are you interested in more education?: No Please select the resources that you would like help with: None Currently or been in a relationship where the following occur: No concerns reported THRIVE Score: 0 FATUMA-7 AMB Questionnaire FATUMA-7 Date FATUMA - 7 assessed: 02/09/25 Source: Developed by Drs. Fer Brown, Carley Jimenez, Jef Angel and colleagues, with an educational dee from [employer]. Review of Systems Const Denies chills, Denies fatigue, Denies fever(s), Denies headache(s) and Denies weakness ENT Denies dizziness and Denies headache(s) Card Denies dyspnea Resp Denies cough, Denies dyspnea, Denies wheezing and Denies other (shortness of breath) Musc Denies numbness and Denies tingling Neuro Denies dizziness, Denies headache(s), Denies numbness, Denies tingling and Denies weakness Psych Denies anxiety and Denies depression Endo Denies fatigue Aller/Immun Denies wheezing Physical exam (Primary Care) Tobacco/Smoking Status: Tobacco use Status Tobacco use date assessed 03/17/25 03/17/25 13:53 Patient Tobacco Use Status Never used Tobacco 03/17/25 13:53 e-Cigarette/Vaping Use Never Used 03/17/25 13:53 Thrive Assessment: Date of Thrive Assessment Date Thrive assessed 02/09/25 03/17/25 13:53 Currently or been in a relationship where the following occur: No concerns reported Const General: well developed; No acute distress Nutritional Appearance: well nourished Orientation/consciousness: patient oriented x3 HENMT Head: Yes normocephalic and Yes atraumatic Eyes General: appearance normal, both eyes and all related structures Pupils: Equal, round and reactive pupils present EOM: EOMs intact bilaterally Resp Effort & Inspection: normal respiratory effort Neuro General: patient oriented x3 and gait normal Cranial nerves: Yes Equal, round and reactive pupils present Psych Affect: normal affect Coding Level of Care Code Est Pt Level 4 (21370) Diagnoses CAD (coronary artery disease) I25.10 Hyperlipidemia E78.5 Hypertension I10 Elevated liver enzymes R74.8 Assessment & Plan Assessment & Plan (1) CAD (coronary artery disease): Code(s): I25.10 - Atherosclerotic heart disease of [place] coronary artery without angina pectoris Category: Medical (2) Hyperlipidemia: Code(s): E78.5 - Hyperlipidemia, unspecified Category: Medical (3) Hypertension: Code(s): I10 - Essential (primary) hypertension Category: Medical (4) Elevated liver enzymes: Code(s): R74.8 - Abnormal levels of other serum enzymes Category: Medical Plan Patient presents for follow-up chest pain with coronary artery disease. Dx' w/ CAD with complex stenting of left main into the LAD at [facility] for significant left main stenosis. Had increased rosuvastatin and LDL cholesterol now nearly at goal of less than 55. Recent LDL cholesterol was 56. Continue current medications and continue to work at a diet low in saturated fats and cholesterol. Had an metoprolol to losartan for better blood pressure control. Pressure now fairly well controlled controlled - goal less than 130/80 Complex stenting and is on antiplatelet therapy for Brilinta. Cardiology recommends minimum of a year and probably longer given complex nature and severity of CAD. He was allergic to ASA and now desensitized and taking 81mg tab daily Chest pain has resolved. Is undergoing cardiac rehab. Follow with Cardiology as recommended Liver enzymes are elevated. Will have him hydrate well. Will recheck in 6 weeks Orders: Orders Comprehensive Met. Panel Today R74.8 - Abnormal levels of other serum enzymes
[2025-05-19 16:34] VITALS: BP 118/70; PULSE 88; RESP 14; TEMP 37.2; O2SAT 97; BMI 25.6
== END 2025-05-19 16:46 | disposition home or self-care (01) ==
LOC: HO.HMCFM 16:22
PROVIDERS: PCP Family Medicine; Visit Provider Family Medicine
DX: I25.10 Atherosclerotic heart disease of native coronary artery without angina pectoris (principal); E78.5 Hyperlipidemia, unspecified; I10 Essential (primary) hypertension; R74.8 Abnormal levels of other serum enzymes

== ENCOUNTER 2025-05-24 07:00 | Outpatient (RCR) | payer OTHER, SELFPAY | END 2025-05-29 06:25 | disposition home or self-care (01) | LOC: HO.CR 07:00 | PROVIDERS: PCP Family Medicine; Visit Provider Internal Medicine Cardiovascular Disease | DX: Z98.61 Coronary angioplasty status (principal) | CPT/HCPCS: 93798 ==